=== PATIENT | female | born 1960 | race Caucasian/White ===

== ENCOUNTER 2016-10-26 23:13 | Inpatient (IN) | payer OTHER, MEDICARE ==
--- NOTE | ~2016-10-26 | IDS ---
Interim Discharge Summary [facility] [address] [place]. [address] NAME: ISAI CLAYTON : 60 STATUS : ADM IN PAT#: [id number] AGE: 56 ADM/REG DATE : 10/27/16 MR#: [id number] REPORT SERV DATE: 11/04/16 DICTATED BY: CARMELO SHERMAN DATE: 11/04/16 REPORT STATUS : Draft TRANSCRIBED BY: MODL DATE: 11/04/16 ADMISSION DATE: 10/27/2016 DISCHARGE DATE: WORKING DIAGNOSES: 1. Acute multiple sclerosis exacerbation, just finished high-dose IV steroid therapy and currently on oral taper. 2. Acute encephalopathy and agitation related to above. 3. Smoking. CONSULTS: Neurology. PROCEDURES AND IMAGIN. MRI of the brain performed on 10/27/2016 showed a mass lesion that appeared to be malignant in the right frontal parietal region extending into the corpus callosum splenium and crossing the midline into the left centrum semiovale. 2. A PET scan performed on 10/30/2016 revealed no hypermetabolic activity involving the large lesion in the posterior right parietal lobe to suggest neoplasm. HOSPITAL COURSE: This is a 56-year-old lady with history of multiple sclerosis, who was admitted with acute encephalopathy and lethargy. For details, please refer to H and P by Dr. Iqbal. In summary, the patient was admitted and an MRI of the brain was performed. The MRI of the brain showed what appeared to be a malignant mass. Neurology was consulted, and after discussing with the patient's outpatient neurologist, Dr. Yarbrough, her MRI scan was compared to the outpatient MRI that she had done about a month ago. The MRI actually appeared better than the one she had as an outpatient, and thus PET scan was performed as an inpatient to see if the mass lesion truly represented a malignant process versus a multiple sclerosis. Thankfully, it did not show any malignant process and thus the patient's condition was thought to be due to acute multiple sclerosis exacerbation. The patient was started on very high-dose IV steroids, namely Solu-Medrol 1000 mg IV daily. The patient has finished a 5-day course of that and she is now currently on p.o. taper, scheduled to taper off over the next 10 days. Unfortunately, although the patient had shown some improvement, she is still far from baseline and requires a lot of assistance to even walk. The patient is being evaluated by Physical Therapy, and she will likely need a placement to SNF. Unfortunately, it is not clear if the patient will be able to return to her baseline functional status with such a big MS lesion. DISPOSITION: Pending Physical Therapy and Neurology evaluation. The patient will likely need SNF placement. DIRK/CARMINE Carmelo Sherman MD Interim Discharge Summary [address] [address] NAME: ISAI CLAYTON : 60 STATUS : ADM IN PAT#: [id number] AGE: 56 ADM/REG DATE : 10/27/16 MR#: [id number] REPORT SERV DATE: 11/04/16 DICTATED BY: CARMELO SHERMAN DATE: 11/04/16 REPORT STATUS : Draft TRANSCRIBED BY: CARMINE DATE: 11/04/16 / [id number] CC: Carmelo Sherman MD
--- NOTE | ~2016-10-26 | HP ---
History And Physical [facility] [id number] [place]. [address] NAME: ISAI CLAYTON : 60 STATUS : ADM Stefany PAT#: [id number] AGE: 56 ADM/REG DATE : 10/27/16 MR#: [id number] REPORT SERV DATE: 10/27/16 DICTATED BY: MARY ANN BARRETT DATE: 10/27/16 REPORT STATUS : Draft TRANSCRIBED BY: MODHerson DATE: 10/27/16 DATE OF ADMISSION: 10/26/2016 POINT OF ENTRY: [facility]. PRIMARY NEUROLOGIST: Ronald Yarbrough M.D., PhD. CHIEF COMPLAINT: Altered mental status, sedation, and lethargy. HISTORY OF PRESENT ILLNESS: Ms. Clayton is a 56-year-old female with a history of multiple sclerosis, currently followed by Dr. Yarbrough, as well as seizure disorder, chronic pain on chronic narcotics, hypothyroidism, and other medical comorbidities, who is brought to the emergency room today by her for a one to two week history of altered mental status sedation and lethargy. states that for the past week or two she has been "out of it" and not acting herself. When asked for examples, he says that she is having trouble with walking as she is stumbling around as if she is intoxicated. She has had some falls recently. She has been very confused, easily distracted. He recently left to go out of town on work, and when he returned, he found that the house was a mess and very disorganized, which is unusual for her. Her also states that she has been very sedated and lethargic and acting as if she had taken too many of her pain medications, which he is convinced that she did not as he counted her pain medications, and by his calculation, she has more than she should in the pill bottle not less than she should and this suggested that she has not been taking her pain medications as she normally would. He states that her behavior is very similar to a few years ago when she was diagnosed with seizure disorder. He is also very concerned that she may not been taking her other prescription medications as prescribed for the period time for which he was out of town and she was not supervised. The patient recently had a multiple sclerosis for about three weeks ago and had two separate MRIs which according to , Dr. Yarbrough states that there has been some progression of the disease. She was placed on some steroids which he felt initially helped her symptoms but then this confusion developed. Initial evaluation in the emergency department notable for some mild hypertension was well as a white count 12,600. Labs notable for some mild dehydration with a bicarb level of 19. CT scan of the brain showed some right posterior frontal lobe edema for which Radiology recommends MRI followup. Urinalysis is unremarkable. Urine drug screen shows benzodiazepines and opiates and tricyclics. The patient was subsequently admitted to the Hospitalist Service for further evaluation and management. REVIEW OF SYSTEMS: Comprehensive review of systems otherwise negative unless listed in history of present illness. PREVIOUS MEDICAL HISTORY: History And Physical [address] [place]. [address] NAME: ISAI CLAYTON : 60 STATUS : ADM Stefany PAT#: [id number] AGE: 56 ADM/REG DATE : 10/27/16 MR#: [id number] REPORT SERV DATE: 10/27/16 DICTATED BY: MARY ANN BARRETT DATE: 10/27/16 REPORT STATUS : Draft TRANSCRIBED BY: CARMINE DATE: 10/27/16 1. Multiple sclerosis. 2. History of seizure disorder. 3. History of prior cerebrovascular accident. 4. History of carotid arterial disease. 5. Chronic pain on chronic narcotics. 6. Hypothyroidism. 7. Hypertension. 8. Hyperlipidemia. 9. History of autonomic insufficiency with syncope. 10.History of orthostatic hypotension with syncope. 11.Gastroparesis. SURGICAL HISTORY: 1. Abdominal hysterectomy. 2. Thyroidectomy. 3. Right wrist surgery. ALLERGIES: ARE TO PHENERGAN AND IMITREX AND TRIPTAN. HOME MEDICATIONS: 1. Atorvastatin 40 mg daily. 2. Klonopin 2 mg b.i.d. 3. Sinequan 20 mg at bedtime. 4. Ergocalciferol 50,000 units weekly. 5. Fentanyl topical patch 25 mcg every two days. 6. Gabapentin 3 mg at bedtime. 7. Lamictal 200 mg b.i.d. 8. Levothyroxine 88 mcg daily. 9. MS Contin 30 mg q.6 hours p.r.n. 10.Omeprazole 20 mg b.i.d. 11.Tysabri 300 mg IV monthly. SOCIAL HISTORY: She smokes about a half pack per day. Denies any illicits. Denies any alcohol. FAMILY MEDICAL HISTORY: Mother with coronary artery disease. Father's history is unknown. Siblings with history of coronary artery disease as well. LABS AND IMAGIN. White count 12.6, hemoglobin 17.0, hematocrit 47.5, and platelet count is 340. 2. Sodium is 143, potassium 3.3, chloride 108, carbon oxide 19, BUN 14, creatinine 1.14, glucose is 100, calcium 9.1, protein 7.9, albumin is 4.0, bilirubin is 0.6, ALT is 17, AST 25, and alkaline phosphatase is 138. 3. Troponin 0.03. 4. Urine drug screen shows benzodiazepines, opiates, and tricyclics. 5. Urinalysis: Specific gravity is 1.025, hazy with 8 red and 6 white blood cells per high- powered field with rare bacteria and trace ketones; however, negative leukocyte History And Physical [address] [address] NAME: ISAI CLAYTON : 60 STATUS : ADM Stefany PAT#: [id number] AGE: 56 ADM/REG DATE : 10/27/16 MR#: [id number] REPORT SERV DATE: 10/27/16 DICTATED BY: MARY ANN BARRETT DATE: 10/27/16 REPORT STATUS : Draft TRANSCRIBED BY: CARMINE DATE: 10/27/16 esterase, negative nitrites. 6. CT scan of the brain shows area of edema in the right posterior frontal lobe near the falx which appears to show sparing of the cortex. This finding can be seen in vasogenic edema for underlying mass lesion or small underlying abscess collection. MRI of the brain is recommended for further evaluation. Small old lacunar infarction, left thalamus. Chronic ischemic changes bilaterally. There is significant interval progression of chronic small vessel disease compared to prior study. PHYSICAL EXAMINATION: VITAL SIGNS: Temperature is 98.2 degrees Fahrenheit, pulse is 101, respirations 24, saturating 99% on room air. Blood pressure is 156/110. GENERAL: The patient is somewhat sedated and lethargic, but easily awakens. She is a well- developed, well-nourished, elderly female. HEENT: Atraumatic and normocephalic. Dry mucous membranes. Pupils are equal, round, reactive to light and accommodation. Her pupils are somewhat pinpoint at 4-5 mm but reactive. NECK: No jugular venous distention. No carotid bruits. CARDIAC: Regular rate and rhythm. No murmurs or gallops. Normal S1, S2. LUNGS: Clear to auscultation bilaterally with some decreased breath sounds at bases. No wheezes, rhonchi, or crackles. ABDOMEN: Soft, nontender, nondistended. Good bowel sounds. No rebound, guarding, rigidity. EXTREMITIES: Warm and well perfused. No cyanosis, clubbing, or edema. SKIN: Warm and dry. PSYCH: Flattened affect. NEURO: Alert and oriented x3, is able to tell me her birthday as well as the name of the President. Cranial nerves 2 through 12 were grossly intact. Speech is normal. Gait is not assessed. ASSESSMENT: Ms. Clayton is a 56-year-old female, who was brought to the emergency department by her for a one to two week history of encephalopathy, disorientation, sedation, and lethargy of unclear etiology. PROBLEM LIST: 1. Encephalopathy. 2. Sedation and lethargy. 3. Dehydration. 4. Metabolic acidosis. 5. Multiple sclerosis. 6. Seizure disorder. 7. Abnormal CT scan of the brain. 8. Hypokalemia. 9. Asymptomatic pyuria. PLAN: 1. Encephalopathy. Etiology is likely multifactorial and differential is very broad at this time. Workup thus far has been unremarkable except for some dehydration as well as the abnormal CT scan imaging. We will check ammonia level, thyroid function History And Physical [address] [address] NAME: ISAI CLAYTON : 60 STATUS : ADM Stefany PAT#: [id number] AGE: 56 ADM/REG DATE : 10/27/16 MR#: [id number] REPORT SERV DATE: 10/27/16 DICTATED BY: MARY ANN BARRETT DATE: 10/27/16 REPORT STATUS : Draft TRANSCRIBED BY: MODL DATE: 10/27/16 studies, vitamin B12, as well as an ABG given reports of altered mental status, sedation, and lethargy. We will also follow up with an MRI of the brain. Given patient's history of seizure disorder as well as multiple sclerosis, we will consult Neurology for assistance as well as for likely EEG. We will hold the patient's gabapentin, Klonopin, and MS Contin for sedation as well. 2. Sedation and lethargy. Holding medications for sedation. Check ammonia level, thyroid function studies, as well as an ABG. 3. Metabolic acidosis. She does have some ketones in her urine, which is likely the source, but we will check a lactic acid level as well as an ABG. 4. Dehydration. Provide IV fluids. 5. Multiple sclerosis. We will try to obtain recent records including MRI imaging from Dr. Yarbrough's office. Neurology consultation. 6. Abnormal CT scan of the brain. We will order MRI as recommended by Radiology. 7. Asymptomatic pyuria. She does have 6 whites per high-powered field but denies any symptoms and is negative leukocyte esterase and negative nitrites, therefore, we will hold off on any antibiotics at this time. 8. DVT prophylaxis. Lovenox subcu. CODE STATUS: The patient wished to be full code. ALYSAB/MODL Mary Ann Barrett MD / [id number] CC: Scottie Yarbrough M.D., PhD.
--- NOTE | ~2016-10-26 | DS ---
Discharge Summary [facility] [address] [place]. [address] NAME: ISAI CLAYTON : 60 STATUS : ADM IN PAT#: [id number] AGE: 56 ADM/REG DATE : 10/27/16 MR#: [id number] REPORT SERV DATE: 11/07/16 DICTATED BY: ROSALEE ESPINOSA DATE: 11/07/16 REPORT STATUS : Draft TRANSCRIBED BY: MODL DATE: 11/07/16 ADMISSION DATE: 10/27/2016 DISCHARGE DATE: CURRENT HOSPITAL DIAGNOSES: Multiple sclerosis, acute exacerbation; encephalopathy and agitation related to above; and tobacco abuse. 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 This would suggest relapsing-remitting pattern with the hernadez and deterioration of a large amount of additional scattered white matter changes in right and left centrum semiovale, probably also related to recent exacerbation of MS compared to October 28 study. No increased mass effect or ventricular shift identified. CURRENT PHYSICAL FINDINGS AND HPI: Please see previous H and P by Dr. Iqbal on the as well as interim summary by Dr. Singh on the . I assumed the patient's care on the and will dictate from that point. The patient had been hospitalized the previous week with MS exacerbation and confusion. She had undergone multiple testings as dictated in her previous interim summary. On the , she appeared to be stable, had titrated off her high dose steroids on to a high dose of p.o. prednisone taper. Neurology elected to repeat her MRI to see if her lesional burden was changing anywhere and the results as noted above. She had also been routinely following with PT/OT and had a pending evaluation for rehab at [facility]. On the , she had no significant changes. On the after review of her MRI, discussion with her primary neurologist, and approval for rehab at [facility], it was elected to transfer her for further rehab at [facility] with a slow steroid taper and repeat MRI in two to three weeks. DISPOSITION: She is discharged to [facility]. MEDICATIONS: Lipitor 40 one per day, B12 at 1000 per day, Sinequan 20 at bedtime, vitamin D 50,000 weekly, Duragesic patch 25 mcg, change q.48; Neurontin 300 at bedtime; Lamictal 200 b.i.d.; Synthroid 88; Habitrol patch 21; Mycostatin swish and spit q.i.d.; Protonix 40; Klonopin 2 mg b.i.d.; prednisone 80, 60, 40, 20 taper. She will not receive her Tysabri infusion on the , instead she will continue steroids. FOLLOWUP: With Neurology post discharge. TLF/CARMINE Rosalee Espinosa M.D. Discharge Summary [address] [address] NAME: ISAI CLAYTON : 60 STATUS : ADM IN PAT#: [id number] AGE: 56 ADM/REG DATE : 10/27/16 MR#: [id number] REPORT SERV DATE: 11/07/16 DICTATED BY: ROSALEE ESPINOSA DATE: 11/07/16 REPORT STATUS : Draft TRANSCRIBED BY: CARMINE DATE: 11/07/16 / [id number] CC: Rosalee Espinosa M.D.
--- NOTE | ~2016-10-26 | EEG ---
Electroencephalogram [facility] [address] [place]. [address] NAME: ISAI CLAYTON : 60 STATUS : ADM Stefany PAT#: [id number] AGE: 56 ADM/REG DATE : 10/27/16 MR#: [id number] REPORT SERV DATE: 10/28/16 DICTATED BY: DATE: REPORT STATUS : Draft TRANSCRIBED BY: MODL DATE: 10/28/16 NEUROLOGY EEG REPORT CLINICAL INDICATION: Encephalopathy. DISCUSSION: This EEG was performed using 10/20 electrode placement system. During the EEG study, the patient was noted to have mildly asymmetric background activity with the patient noted to have mild right frontal slowing. This is best appreciated in the referenced ear montage, otherwise the patient was noted to have predominant occipital rhythm of roughly 8 hertz. Photic stimulation was performed. No clear photic driving response was seen. Hyperventilation was not performed secondary to the patient's underlying medical condition as well as clinical status. During the EEG study, the patient achieved drowsy state. No focal abnormalities, seizure activity, or seizure discharge was otherwise noted. INTERPRETATION: This EEG study obtained during awake and drowsy state may be considered mildly abnormal secondary to presence of mild right frontal slowing that is appreciated in ear reference montage, suggesting possible underlying right frontal area dysfunction or structural abnormalities. Clinical correlation is otherwise recommended. KEANU/CARMINE Ranjan Smith MD / [id number] CC: Abram Gardner M.D.
--- NOTE | ~2016-10-26 | CN ---
Consultation Report [facility] [address] [place]. [address] NAME: ISAI CLAYTON : 60 STATUS : ADM Stefany PAT#: [id number] AGE: 56 ADM/REG DATE : 10/27/16 MR#: [id number] REPORT SERV DATE: 10/27/16 DICTATED BY: DATE: REPORT STATUS : Draft TRANSCRIBED BY: MODL DATE: 10/27/16 NEUROLOGY CONSULTATION DATE OF CONSULTATION: 10/27/2016 REASON FOR CONSULT: Encephalopathy. HISTORY OF PRESENT ILLNESS: This is a 56-year-old female, who presented to [facility] on 10/27/2016 secondary to found the patient to be encephalopathic. was out of town for a week. The patient's reports that since her most recent MS exacerbation, which occurred three weeks ago, the patient was noted to have balance issues, ambulating with difficulty as well as some mild confusion, but not severe enough. The patient was still able to function and still able to drive. The patient, in fact drove her to airport roughly a week ago for his job out of town. When the patient's arrived back in town, the patient's found the house disorganized with the patient unable to control bowel and bladder, and was noted to have very dazed look and was noted to be confused. The patient, since the hospitalization, was noted to have a minimal improvement and was noted to have no significant focal weakness and no reports of fever. No tonic-colonic shaking episode was reported, but the patient's reports the patient's behaviors similar to previously when the patient was noted to have been having seizures. Otherwise, the patient's most recent MS attack occurred roughly three weeks ago, for which the patient apparently received IV Solu-Medrol as well as MRI of the brain for evaluation. The patient's symptoms improved, but the patient was not back to her baseline and was noted to have balance difficulties as well as some mild confusion, but not quite as severe. The patient's denies any recent illness, and patient's denies any recent changes in medication. The patient is followed by Dr. Ronald Yarbrough at [facility] every six months for her MS. No significant psychosocial stress was noted by family members. REVIEW OF SYSTEMS: Negative except for those mentioned in the HPI. PAST MEDICAL HISTORY: Significant for multiple sclerosis; as well as previous seizure disorder; history of stroke; carotid artery disease; as well as history of chronic pain, on narcotics; hypothyroidism; hypertension; hyperlipidemia; previous history of autonomic insufficiency with syncopal episodes and gastroparesis. The patient also has difficulties controlling bowel and bladder secondary to multiple sclerosis, as well as the patient was noted to have allergy to Phenergan, Imitrex and Triptan. SOCIAL HISTORY: The patient continues to smoke roughly a half pack per day. Denies illicit drug usage. Denies alcohol usage. FAMILY HISTORY: Significant for coronary artery disease. Consultation Report [facility] [id number] [facility] [place]. [address] NAME: ISAI CLAYTON : 60 STATUS : ADM Stefany PAT#: [id number] AGE: 56 ADM/REG DATE : 10/27/16 MR#: [id number] REPORT SERV DATE: 10/27/16 DICTATED BY: DATE: REPORT STATUS : Draft TRANSCRIBED BY: MODL DATE: 10/27/16 HOME MEDICATIONS: Consist of Lipitor, Klonopin, doxepin, vitamin D, Duragesic patch, Neurontin, Lamictal, levothyroxine, morphine, Prilosec, and Tysabri infusion for MS disease modifying therapy. PHYSICAL EXAMINATION: VITAL SIGNS: At the time of my evaluation since the hospital admission, the patient was noted to have vital signs with T-max of 98.3, heart rates of 69 to 101, respirations of 18 to 24, blood pressure of 127 to 156/72 to 110. GENERAL: The patient is well developed, well nourished, in no acute distress. CARDIOVASCULAR: Regular rate and rhythm. No carotid bruits were otherwise auscultated. PULMONARY: Clear to auscultation bilaterally. NEUROLOGICAL: Generally the patient is alert, has a decreased attention span and has had no evaluation. Appeared to be somewhat lethargic, also the patient noted to have inappropriate behavior at the time of my evaluation, oriented to person, place, but not to year or month, which the reports. At times, the patient does have some difficulties with date. The patient was noted to have difficulties with registration and recall. Dysarthria was noted at the time of my evaluation with the patient at times to have some difficulty comprehending complex commands. Cranial nerves II through XII are, pupil was noted to be asymmetric as well as the patient's right pupil noted to have apparent pupillary defect. Dysconjugate gaze was noted. Extraocular eye movement was otherwise noted to be full and intact blink to threat response. The patient demonstrated decreased nasolabial fold on the right, as well as the patient noted to have mild right-sided facial weakness, tongue deviated to the right, asymmetric palatal movement, apparent to have normal hearing. Reports symmetrical sensation of her face. The patient demonstrated 4+/5 right upper extremity shactor helper strength, as well as 5/5 left upper extremity strength. Demonstrated 5/5 bilateral lower extremity strength at the time of my evaluation. Normal bstiji-zp-aike examination on the right, but the patient had difficulties with bihtlx-ct-ymny examination on the left. The patient has had deep tendon reflexes with diffusely hyperreflexic upgoing toe on bilateral plantar reflexes. The patient was noted to have ataxic gait, and have difficulty getting back into her bed at the time of my evaluation and trying to climb into the couch. LABORATORY STUDY: Demonstrates sodium 143, potassium 3.3, chloride 108, bicarb of 19, BUN of 14, creatinine 1.14, glucose of 100, calcium of 9.1. White blood cell count of 12.6, hemoglobin of 17.0, hematocrit of 47.5, and platelet count of 340. Urinalysis has demonstrated negative leukocyte esterase, negative nitrite. CT scan of her brain demonstrated right frontal area hypoattenuation concerning for acute subacute stroke versus metastasis versus possible MS exacerbation. The patient does not have any recent MRIs in our PACS systems for comparison. The patient's does report a recent history of MRI study. We will attempt to obtain records from Dr. Yarbrough's office on 10/28/2016. IMPRESSION: 1. Encephalopathy. Concern for possible multiple sclerosis exacerbation versus metabolic etiology versus seizure versus new REHAB NURSE lesion or abnormalities, so we will check the laboratory study, obtain MRI of the brain with and without contrast, as well as obtain Consultation Report [address] [place]. [address] NAME: ISAI CLAYTON : 60 STATUS : ADM Stefany PAT#: [id number] AGE: 56 ADM/REG DATE : 10/27/16 MR#: [id number] REPORT SERV DATE: 10/27/16 DICTATED BY: DATE: REPORT STATUS : Draft TRANSCRIBED BY: MODL DATE: 10/27/16 an EEG study. We will also obtain records from Dr. Yarbrough's office on 10/28/2016. 2. Multiple sclerosis. The patient is currently on Tysabri. Again, we will obtain records from patient's primary neurologist, Dr. Yarbrough. 3. Seizure. We will continue Lamictal for now, and EEG on 10/28/2016. [facility]/MODL Ranjan Smith MD / [id number] CC: Abram Gardner M.D.
[~2016-10-26 23:13] MED LIST: ASAB PO; AVONEX IM; DOX10 PO; DURA25 TOP; FLORINEF0.1 MG PO; KLONO2 PO; LAMICTAL XR200 MG PO; LAMICTAL10 PO; LAMICTAL200 MG PO; LEVOTHYROXIN100 MCG PO; LEVOTHYROXIN112 MCG PO; LIPITOR80 MG PO; LORTAB10 PO; MSIMMREL PO; NORCO1 TAB PO; NORV5 PO; PRILO PO; PRIN10 PO; PRIN5 PO; TYSABRI IV; VITD PO; [UNRECOGNIZED DRUG - CODE] OR
[2016-10-27 00:13] LABS: BASOPHILS 0.4 %; BASOPHILS ABSOLUTE 0.05 10/3/uL (0.0-0.16); EOSINOPHILS 0.1 %; EOSINOPHILS ABSOLUTE 0.01 10/3/uL (0.0-0.53); IMMATURE GRANULOCYTES 0.9 %; IMMATURE GRANULOCYTES ABSOLUTE 0.11 10/3/uL (0.0-0.11); LYMPHOCYTES 17.6 %; LYMPHOCYTES ABSOLUTE 2.21 10/3/uL (0.67-4.30); MEAN CORPUSCULAR HEMOGLOB 30.4 pg (26.0-34.0); MEAN PLATELET VOLUME 8.7 fL (9.2-13.0); MONOCYTES 5.9 %; MONOCYTES ABSOLUTE 0.74 10/3/uL (0.21-1.20); NEUTROPHILS 75.1 %; NEUTROPHILS ABSOLUTE 9.43 10/3/uL (2.02-8.40)
[2016-10-27 00:18] LABS: ER CBC TAT 0 Hrs 09 Mins; HEMATOCRIT 47.5 % (36.0-48.0); MANUAL DIFF NO %; MEAN CORPUS HGB CONC 35.8 g/dL (32.0-36.0); PLATELET COUNT 340 10/3/uL (150-400); RED CELL COUNT 5.59 10/6/uL (4.0-5.6); WHITE BLOOD CELLS 12.6 10/3/uL (4.5-10.5)
[2016-10-27 01:45] LABS: ALKALINE PHOSPHATASE 138 U/L (45-117); CALCIUM, SERUM 9.1 MG/DL (8.5-10.4); CHLORIDE, SERUM 108 MMOL/L (96-112); CREATININE 1.14 MG/DL (0.55-1.02); GFR AFRICAN AMERICAN 62 ML/MIN (>=60); GFR NON AFRICAN AMERICAN 54 ML/MIN (>=60); GLOBULIN 3.9 G/DL (2.5-4.1); POTASSIUM, SERUM 3.3 MMOL/L (3.5-5.3); SALICYLATE 4.1 MG/DL (-); SGOT(AST) 25 U/L (5-40); SGPT(ALT) 17 U/L (5-65); SODIUM, SERUM 143 MMOL/L (135-148); TOTAL BILIRUBIN 0.6 MG/DL (0-1.2); TOTAL PROTEIN 7.9 G/DL (6.0-8.5); TROPONIN I 0.03 NG/ML (<0.05)
[2016-10-27 01:46] LABS: ACETAMINOPHEN LEVEL (TYLENOL) < 2.0 MCG/ML (10.0-20.0); ALCOHOL < 10 MG/DL (0); BUN (BLOOD UREA NITROGEN) 14 MG/DL (6-23); CO2 (CARBON DIOXIDE) 19 MMOL/L (24-34); GLUCOSE, SERUM 100 MG/DL (60-99)
[2016-10-27 03:37] LABS: ASCORBIC ACID (UR NOT ORDER) NEG (NEG); BILIRUBIN, URINE NEGATIVE (NEG); ER URINALYSIS TAT 0 Hrs 01 Mins; KETONE, URINE TRACE MG/DL (NEG); LEUKOCYTE ESTERASE(NOT OR NEG (NEG); NITRITE (URINE) NEG (NEG); WBC (NOT ORDERED) (RFLEX) 6 (0-5)
[2016-10-27 03:55] LABS: AMPHETAMINES (NOT ORD) NEG (NEG); BENZODIAZEPINES (NOT ORD) POS (NEG); CANNABINOIDS (THC) NEG (NEG); COCAINE (NOT ORDERED) NEG (NEG); OPIATES POS (NEG); PHENCYCLIDINE(PCP) NEG (NEG)
[2016-10-27 03:56] LABS: BARBITURATES (NOT ORDERED NEG (NEG); TRICYCLICS POS (NEG)
[2016-10-27] MEDS ORDERED: PRILO PO (04:45)
[2016-10-27] MEDS ORDERED: LEVOTHYROXIN88 MCG PO (04:45)
[2016-10-27] MEDS ORDERED: LAMICTAL200 MG PO (04:46)
[2016-10-27] MEDS ORDERED: DURA25 TOP (04:47)
[2016-10-27] MEDS ORDERED: DOX10 PO (04:48)
[2016-10-27] MEDS ORDERED: VITD PO (04:48)
[2016-10-27] MEDS ORDERED: LIPITOR40 PO (04:48)
[2016-10-27] MEDS ORDERED: MSIMMREL PO (04:49)
[2016-10-27] MEDS ORDERED: KLONO2 PO (04:50)
[2016-10-27] MEDS ORDERED: NEUR300 PO (04:51)
[2016-10-27] MEDS ORDERED: [UNRECOGNIZED DRUG - OTHER] IV (04:55)
[2016-10-27 11:04] LABS: ALLENS TEST Pos; BE (BASE EXCESS) -5.5 MEQ/L (0 +/- 2.5); CARBOXYHEMOGLOBIN 0.6 % (0-3); HEMOBLOGIN CONTENT 14.8 G/DL (12-16); INSTRUMENT SERIAL # 8083; METHEMOGLOBIN 0.7 % (0-3); O2 CONTENT 19.7 VOL% (18-24); OPERATOR ID 32214; PCO2 (CO2 TENSION) 30 MMHG (35-45); PO2 (O2 TENSION) 83 MMHG (79-93); SAMPLE Arterial; pH 7.39 (7.37-7.43)
[2016-10-27 11:25] LABS: C-REACTIVE PROTEIN 8.3 MG/L (<8.0); FOLATE 19.1 NG/ML (>5.2); FREE T4 2.15 NG/DL (0.76-1.46); ULTRASENSITIVE TSH 0.02 MCIU/ML (0.358-3.740)
[2016-10-27 13:14] LABS: PROCALCITONIN 0.15 ng/mL (<0.5)
[2016-10-28 07:11] LABS: HEMOGLOBIN 10.2 g/dL (12.0-16.0); MANUAL DIFF YES %; MEAN CORPUSCULAR VOLUME 88.2 fL (80-100); MEAN PLATELET VOLUME 8.4 fL (9.2-13.0); PLATELET COUNT 213 10/3/uL (150-400); RBC DISTRIBUTION WIDTH 14.2 % (12.0-16.0); WHITE BLOOD CELLS 6.1 10/3/uL (4.5-10.5)
[2016-10-28 07:21] LABS: BUN (BLOOD UREA NITROGEN) 9 MG/DL (6-23); CALCIUM, SERUM 8.2 MG/DL (8.5-10.4); CHLORIDE, SERUM 112 MMOL/L (96-112); CO2 (CARBON DIOXIDE) 22 MMOL/L (24-34); CREATININE 0.86 MG/DL (0.55-1.02); GFR AFRICAN AMERICAN 88 ML/MIN (>=60); GFR NON AFRICAN AMERICAN 76 ML/MIN (>=60); GLUCOSE, SERUM 89 MG/DL (60-99); POTASSIUM, SERUM 3.9 MMOL/L (3.5-5.3); SODIUM, SERUM 143 MMOL/L (135-148)
[2016-10-28 07:41] LABS: BAND NEUTROPHILS 1 %; EOSINOPHILS 2 %; EOSINOPHILS ABSOLUTE (CALC) 0.12 10/3/uL (0.0-0.53); LYMPHOCYTES 32 %; LYMPHOCYTES ABSOLUTE (CALC) 1.95 10/3/uL (0.67-4.30); MONOCYTES 7 %; MONOCYTES ABSOLUTE (CALC) 0.43 10/3/uL (0.21-1.20); PLATELET ESTIMATE ADQ (ADEQUATE); RBC MORPHOLOGY NORM (NORMAL); SEGMENTED NEUTROPHIL (0) 58 %; TOTAL NUCLEATED CELLS 100
[2016-10-29 07:35] LABS: C-REACTIVE PROTEIN 3.5 MG/L (<8.0)
[2016-10-31 09:31] LABS: BASOPHILS 0.2 %; BASOPHILS ABSOLUTE 0.02 10/3/uL (0.0-0.16); EOSINOPHILS 0.1 %; EOSINOPHILS ABSOLUTE 0.01 10/3/uL (0.0-0.53); HEMATOCRIT 32.4 % (36.0-48.0); HEMOGLOBIN 10.8 g/dL (12.0-16.0); IMMATURE GRANULOCYTES 1.2 %; LYMPHOCYTES 17.9 %; LYMPHOCYTES ABSOLUTE 1.53 10/3/uL (0.67-4.30); MEAN CORPUS HGB CONC 33.3 g/dL (32.0-36.0); MEAN CORPUSCULAR HEMOGLOB 28.6 pg (26.0-34.0); MEAN CORPUSCULAR VOLUME 85.7 fL (80-100); MEAN PLATELET VOLUME 9.4 fL (9.2-13.0); MONOCYTES 6.3 %; MONOCYTES ABSOLUTE 0.54 10/3/uL (0.21-1.20); NEUTROPHILS 74.3 %; NEUTROPHILS ABSOLUTE 6.35 10/3/uL (2.02-8.40); NUCLEATED RED BLOOD CELLS 1.4 /100WBC (0-0); PLATELET COUNT 232 10/3/uL (150-400); RBC DISTRIBUTION WIDTH 13.8 % (12.0-16.0); RED CELL COUNT 3.78 10/6/uL (4.0-5.6)
[2016-10-31 09:32] LABS: MANUAL DIFF NO %; WHITE BLOOD CELLS 8.6 10/3/uL (4.5-10.5)
[2016-10-31 09:41] LABS: CALCIUM, SERUM 8.5 MG/DL (8.5-10.4); CHLORIDE, SERUM 109 MMOL/L (96-112); CO2 (CARBON DIOXIDE) 26 MMOL/L (24-34); CREATININE 0.96 MG/DL (0.55-1.02); GFR AFRICAN AMERICAN 77 ML/MIN (>=60); GFR NON AFRICAN AMERICAN 66 ML/MIN (>=60); SODIUM, SERUM 143 MMOL/L (135-148)
[2016-10-31 09:44] LABS: BUN (BLOOD UREA NITROGEN) 13 MG/DL (6-23); GLUCOSE, SERUM 129 MG/DL (60-99); POTASSIUM, SERUM 3.9 MMOL/L (3.5-5.3)
[2016-11-01 05:49] LABS: HEMATOCRIT 30.8 % (36.0-48.0); HEMOGLOBIN 10.2 g/dL (12.0-16.0); MEAN CORPUS HGB CONC 33.1 g/dL (32.0-36.0); MEAN CORPUSCULAR HEMOGLOB 28.8 pg (26.0-34.0); MEAN PLATELET VOLUME 9.4 fL (9.2-13.0); NUCLEATED RED BLOOD CELLS 1.8 /100WBC (0-0); PLATELET COUNT 205 10/3/uL (150-400); RBC DISTRIBUTION WIDTH 13.7 % (12.0-16.0); RED CELL COUNT 3.54 10/6/uL (4.0-5.6); WHITE BLOOD CELLS 7.9 10/3/uL (4.5-10.5)
[2016-11-01 05:53] LABS: MANUAL DIFF YES %
[2016-11-01 06:02] LABS: BUN (BLOOD UREA NITROGEN) 15 MG/DL (6-23); CALCIUM, SERUM 8.1 MG/DL (8.5-10.4); CHLORIDE, SERUM 105 MMOL/L (96-112); CO2 (CARBON DIOXIDE) 25 MMOL/L (24-34); CREATININE 0.81 MG/DL (0.55-1.02); GFR AFRICAN AMERICAN 94 ML/MIN (>=60); GFR NON AFRICAN AMERICAN 81 ML/MIN (>=60); GLUCOSE, SERUM 125 MG/DL (60-99); SODIUM, SERUM 142 MMOL/L (135-148)
[2016-11-01 06:46] LABS: BAND NEUTROPHILS 2 %; LYMPHOCYTES 14 %; LYMPHOCYTES ABSOLUTE (CALC) 1.11 10/3/uL (0.67-4.30); MONOCYTES 4 %; MONOCYTES ABSOLUTE (CALC) 0.32 10/3/uL (0.21-1.20); NEUTROPHILS ABSOLUTE (CALC) 6.48 10/3/uL (2.02-8.40); PLATELET ESTIMATE ADQ (ADEQUATE); RBC MORPHOLOGY NORM (NORMAL); SEGMENTED NEUTROPHIL (0) 80 %; TOTAL NUCLEATED CELLS 100
[2016-11-01 09:01] LABS: THYROID STIM IMMUNOGLOBULIN <0.10 IU/L (<0.10)
[2016-11-01 11:48] LABS: THYROGLOBULIN AUTO ANTIBODY <0.9 IU/mL (0.0-4.0)
[2016-11-05 07:08] LABS: HEMOGLOBIN 12.1 g/dL (12.0-16.0); MEAN CORPUSCULAR HEMOGLOB 29.8 pg (26.0-34.0); MEAN PLATELET VOLUME 9.2 fL (9.2-13.0); NUCLEATED RED BLOOD CELLS 2.2 /100WBC (0-0); PLATELET COUNT 213 10/3/uL (150-400); RED CELL COUNT 4.06 10/6/uL (4.0-5.6)
[2016-11-05 07:10] LABS: HEMATOCRIT 34.5 % (36.0-48.0); MANUAL DIFF YES %; MEAN CORPUS HGB CONC 35.1 g/dL (32.0-36.0); WHITE BLOOD CELLS 14.7 10/3/uL (4.5-10.5)
[2016-11-05 07:12] LABS: CALCIUM, SERUM 8.5 MG/DL (8.5-10.4); CHLORIDE, SERUM 99 MMOL/L (96-112); CREATININE 1.11 MG/DL (0.55-1.02); GFR AFRICAN AMERICAN 64 ML/MIN (>=60); GFR NON AFRICAN AMERICAN 55 ML/MIN (>=60); POTASSIUM, SERUM 3.6 MMOL/L (3.5-5.3); SODIUM, SERUM 140 MMOL/L (135-148)
[2016-11-05 07:13] LABS: BUN (BLOOD UREA NITROGEN) 20 MG/DL (6-23); CO2 (CARBON DIOXIDE) 32 MMOL/L (24-34); GLUCOSE, SERUM 196 MG/DL (60-99)
[2016-11-05 07:40] LABS: BAND NEUTROPHILS 8 %; IMMATURE GRANS ABSOLUTE (CALC) 0.59 10/3/uL (0.0-0.11); LYMPHOCYTES 21 %; LYMPHOCYTES ABSOLUTE (CALC) 3.09 10/3/uL (0.67-4.30); METAMYELOCYTES 4 %; MONOCYTES 7 %; MONOCYTES ABSOLUTE (CALC) 1.03 10/3/uL (0.21-1.20); PLATELET ESTIMATE ADQ (ADEQUATE); SEGMENTED NEUTROPHIL (0) 60 %; TOTAL NUCLEATED CELLS 100
[2016-11-05 07:41] LABS: RBC MORPHOLOGY NORM (NORMAL)
[2016-11-11] MEDS ORDERED: LIPITOR40 PO (18:30)
[2016-11-11] MEDS ORDERED: KLONO2 PO (18:31)
[2016-11-11] MEDS ORDERED: B121000P IM (18:32)
[2016-11-11] MEDS ORDERED: D.O.S.100 MG PO (18:32)
[2016-11-11] MEDS ORDERED: DOX10 PO (18:33)
[2016-11-11] MEDS ORDERED: LOVENOX40 SC (18:33)
[2016-11-11] MEDS ORDERED: LAMICTAL200 MG PO (18:34)
[2016-11-11] MEDS ORDERED: LEVOTHYROXIN88 MCG PO (18:34)
[2016-11-11] MEDS ORDERED: DURA25 TOP (18:34)
[2016-11-11] MEDS ORDERED: NEUR300 PO (18:34)
[2016-11-11] MEDS ORDERED: HABIT21 TOP (18:35)
[2016-11-11] MEDS ORDERED: MIRALAX POWDER1 PKT PO (18:36)
[2016-11-11] MEDS ORDERED: PROTONIX PO (18:36)
[2016-11-11] MEDS ORDERED: NYS500UDL PO (18:36)
[2016-11-11] MEDS ORDERED: VITD PO (18:37)
[2016-11-11] MEDS ORDERED: P20 PO (18:37)
[2016-11-11] MEDS ORDERED: NOVOLOG SC (18:38)
== END 2016-11-07 14:39 | DRG 58 ==
LOC: ER 23:13 → 4SO 10-27 05:20
PROVIDERS: Internal Medicine; Nurse Practitioner; Psychiatry & Neurology Neurology
DX: G35 Multiple sclerosis (principal); G93.49 Other encephalopathy; K31.84 Gastroparesis; E87.2 Acidosis; R15.9 Full incontinence of feces; G40.909 Epilepsy, unspecified, not intractable, without status epilepticus; G89.29 Other chronic pain; Z79.891 Long term (current) use of opiate analgesic; E86.0 Dehydration; I10 Essential (primary) hypertension; Z86.73 Personal history of transient ischemic attack (TIA), and cerebral infarction without residual deficits; E78.5 Hyperlipidemia, unspecified; E89.0 Postprocedural hypothyroidism; Z88.8 Allergy status to other drugs, medicaments and biological substances; F17.210 Nicotine dependence, cigarettes, uncomplicated; E87.6 Hypokalemia; R82.71 Bacteriuria; Z79.899 Other long term (current) drug therapy; I95.1 Orthostatic hypotension; D64.9 Anemia, unspecified; R26.0 Ataxic gait; R32 Unspecified urinary incontinence; F41.9 Anxiety disorder, unspecified
CPT/HCPCS: 36600; 70450; 70553; 71010; 78608; 80048; 80053; 80305; 80307; 81001; 82140; 82150; 82306; 82607; 82746; 82805; 82962; 83605; 83690; 84132; 84145; 84439; 84443; 84445; 84484; 85025; 85652; 86140; 86800; 93005; 95816; 96374; 97110-GP; 97116-GP; 97162-GP; 97166-GO; 99285; A9270-GY; A9552; A9577; G8978-CK-GP; G8979-CI-GP; J0360; J2930; J3486

== ENCOUNTER 2016-11-11 18:38 | Inpatient (IN) | payer OTHER, MEDICARE ==
--- NOTE | ~2016-11-11 | EEG ---
Electroencephalogram [facility] [id number] [place]. [address] NAME: ISAI CLAYTON : 60 STATUS : ADM IN PAT#: [id number] AGE: 56 ADM/REG DATE : 11/11/16 MR#: [id number] REPORT SERV DATE: 11/29/16 DICTATED BY: NELDA ASHER DATE: 11/29/16 REPORT STATUS : Draft TRANSCRIBED BY: MODHerson DATE: 11/29/16 ORDERING PHYSICIAN: Nelda Asher MD. INTERPRETING PHYSICIAN: Nelda Asher M.D. LOCATION OF THE PATIENT: CCU bed 8. REASON FOR EEG: Acute onset of respiratory failure, progressive multifocal leukoencephalopathy, poor responsiveness, multiple sclerosis, and history of seizures. 23 surface electrodes, 10-20 international placement was used. Video recording was utilized. Brief photic stimulation was performed. The patient was noted to be unresponsive. The background activity consisted of poorly organized, moderate voltage 6-7 cycles per second located in the posterior head regions. Increase of slower frequencies were seen in temporal regions. No paroxysmal or epileptiform activity was seen during this study. The patient's labor trainer showed sinus rhythm, rate of approximately 72 beats per minute. The EEG remained diffusely slow. The patient had no response to painful or verbal stimuli although she intermittently moved the right arm and right leg. Increase of muscle activity was noted during the above described activity. No paroxysmal or epileptiform features were present. IMPRESSION: ABNORMAL EEG CHARACTERIZED BY PRESENCE OF DIFFUSE SLOWING OF CEREBRAL ACTIVITY. NO PAROXYSMAL OR EPILEPTIFORM ACTIVITY WAS SEEN DURING THIS STUDY. THE ABOVE DESCRIBED PATTERN OF THE PATIENT MAY SUGGEST PRESENCE OF UNDERLYING DIFFUSE CEREBRAL DYSFUNCTION. CLINICAL CORRELATION IS RECOMMENDED. MIRIAN/CARMINE Nelda Asher MD / [id number] CC: Isabell Goldman M.D.
--- NOTE | ~2016-11-11 | OP ---
Record Of Operation [facility] [address] [place] [address] NAME: ISAI CLAYTON : 60 STATUS : ADM IN [facility]#: [id number] AGE: 56 ADM/REG DATE : 11/11/16 MR#: [id number] REPORT SERV DATE: 11/28/16 DICTATED BY: ELAINE PEDROZA DATE: 11/28/16 REPORT STATUS : Draft TRANSCRIBED BY: MODL DATE: 11/28/16 DATE OF PROCEDURE: 11/14/2016 PROCEDURE: Endotracheal intubation. DIAGNOSIS: Respiratory failure. DESCRIPTION: The patient was in CCU bed #8, brought down after Rapid Response Team. She was on a 100% non-rebreather showing poor ventilatory effort and a very abnormal blood gas. The patient was sedated with 20 mg of IV etomidate. Using a MAC 3 blade, I placed a 7.5 ET tube without difficulty. Showed good color change with CO2 detector. Also bilateral breath sounds and secretions coming up through the ET tube. Chest x-ray postprocedure showed ET tube to be going down into the right mainstem bronchus, so the ET tube was pulled back and showed proper positioning after that. CEP/MODHerson Elaine Pedroza DO / [id number] CC: Isabell Goldman M.D.
--- NOTE | ~2016-11-11 | EEG ---
Electroencephalogram [facility] [address] [facility]. [address] NAME: ISAI CLAYTON : 60 STATUS : ADM IN PAT#: [id number] AGE: 56 ADM/REG DATE : 11/11/16 MR#: [id number] REPORT SERV DATE: 11/22/16 DICTATED BY: DATE: REPORT STATUS : Draft TRANSCRIBED BY: MODL DATE: 11/22/16 CLINICAL INDICATIONS: Encephalopathy, progressive multifocal leukoencephalopathy. DISCUSSION: This EEG was performed using 10/20 electrode placement system. During the EEG study, symmetric background activity with generalized slowing was seen predominant occipital rhythm of roughly 6 hertz. Photic stimulation was performed with some driving response. Hyperventilation was not performed due to the patient's medical conditions. During the EEG study, the patient's EKG demonstrated possible PVCs versus ST depressions. Otherwise, the patient achieved drowsy as well as stage I and II sleep with appropriate sleep spindles and K-complexes. No focal abnormalities, seizure activity, or seizure discharge was otherwise noted during the EEG evaluation. INTERPRETATION: This EEG study obtained during awake and drowsy state as well as stage I and II sleep may be considered mildly abnormal secondary to presence of generalized slowing. No focal abnormalities, seizure activity, or seizure discharge was otherwise noted. No clinical seizure or electrographic seizure was seen during today's EEG evaluation. [facility]/MODL Ranjan Smith MD / [id number] CC: Deejay Wynn MD
--- NOTE | ~2016-11-11 | IDS ---
Interim Discharge Summary [facility] [address] [place]. [address] NAME: ISAI CLAYTON : 60 STATUS : ADM IN PAT#: [id number] AGE: 56 ADM/REG DATE : 11/11/16 MR#: [id number] REPORT SERV DATE: 12/11/16 DICTATED BY: DOMITILA BANG DATE: 12/11/16 REPORT STATUS : Draft TRANSCRIBED BY: MODL DATE: 12/11/16 ADMISSION DATE: 11/11/2016 DISCHARGE DATE: This dictation will cover events from the time Critical Care Service got involved which was 11/28 through 12/11. For details before that please see interim discharge summaries by Dr. Goldman on 11/18 and history and physical by Dr. Vinicius Eli on 11/12. On 11/28, rapid response was called at 2:35 a.m. and the patient was found with decreased level of consciousness and was found to have hypercapnic respiratory failure with a pCO2 of 105, and the patient was then subsequently transferred to the CCU and was intubated there. 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 It is known that the patients taken Tysabri and are positive for ALYSA virus may very well did develop progressive multifocal leukoencephalopathy. The patient has been followed by Neurology throughout this hospitalization and attempts have been made to treat the PML including plasmapheresis. Patient required Vas-Cath placement for that and then suffered bilateral pneumothoraces for this attempt, and only received one round of plasmapheresis. Because of the patient's difficulties with gastroparesis, she required chest tube placement. The pneumothoraces resolved and this was before she was moved to the CCU. PEG tube was placed by Dr. Hurst on 11/18. After much discussion with Neurology and the , it was considered that the patient had a poor prognosis, and according to the , she would not want to be kept on prolonged mechanical ventilation. She was extubated and actually sent to the floor with hospice on the . The patient almost was transferred out of the hospital with hospice when Dr. Yarbrough after having a discussion with colleague in [place] for further recommendations and it was recommended that the patient be continued on Maraviroc, Remeron, mefloquine, and Neupogen. Apparently, it was thought that the patient had some reasonable chance of recovery from the PML and so she was reintubated on 12/02 and then transferred to the MICU where she is now. She has been very closely followed by Neurology and currently continues on the above medications. She remains intubated and is undergoing daily spontaneous breathing trials. Clinically, it is thought that there may be some improvement with her mental status. She is currently not sedated. To my command, she has not been responsive, but apparently Neurology feels that there is some improvement. She is not weaning from the vent. her stool was positive for C diff on 11/22. She continues on Vancocin as per Infectious Diseases. She developed a fever on 12/09 and was diaz cultured and it turns out to have methicillin- sensitive Staph aureus in her sputum for which she is being treated with Ancef, initially was on Zosyn, but this has been changed after cultures were obtained. She has gram-negative rods in her urine and currently is on Azactam as per Infectious Diseases and this is an Enterobacter that is growing in her urine. So she is being treated for this. Her leukocytosis has been variable and currently is 29,000, but has been as high as 41,000. Interim Discharge Summary [address] [place]. [address] NAME: ISAI CLAYTON : 60 STATUS : ADM IN [facility]#: [id number] AGE: 56 ADM/REG DATE : 11/11/16 MR#: [id number] REPORT SERV DATE: 12/11/16 DICTATED BY: DOMITILA BANG DATE: 12/11/16 REPORT STATUS : Draft TRANSCRIBED BY: MODL DATE: 12/11/16 She has anemia more than likely multifactorial. We will plan to heme test stool, follow hemoglobin and hematocrit, and transfuse as needed. Thrombocytopenia is variable and we are very carefully following this. She has not required any blood transfusion. The patient had an MRA/MRI of the brain today, on 12/11, results of which are pending. So as far as her code status is concerned, she is currently a full code. The question remains as to whether or not she will be able to be weaned from the vent, and if not, whether a tracheostomy would be desired by the family. She has been fitted for Podus boots since it appears that she has developed footdrop. She continues on her tube feedings and Synthroid. DVT prophylaxis has been with heparin. Seizure disorder. Currently on lamotrigine. There has been no noted seizure activity. /MODL Domitila Bang M.D. / [id number] CC: Isabell Goldman M.D.
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
--- NOTE | ~2016-11-11 | HP ---
History And Physical [facility] [address] [place]. [address] NAME: ISAI CLAYTON : 60 STATUS : DIS IN PAT#: [id number] AGE: 56 ADM/REG DATE : 11/11/16 MR#: [id number] REPORT SERV DATE: 12/31/16 DICTATED BY: NICK COLEMAN DATE: 12/31/16 REPORT STATUS : Draft TRANSCRIBED BY: MODHerson DATE: 12/31/16 DATE OF ADMISSION: 11/11/2016 HISTORY OF PRESENT ILLNESS: The patient is a 56-year-old female who came in to [facility] on 10/26/2016 with some complications from MS. She was sent to [facility]. She was there for two days and bounced back on 11/11/2016 with weakness, confusion, encephalopathy, and progressive multifocal leukoencephalopathy with brain lesions and seizures. She had a Vas- Cath placed and apparently got a pneumothorax from that which extended to two pneumothoraxes bilaterally. She had chest tubes and was placed on a ventilator about 11/28/2016. Subsequently, trached and PEGed. She was taken off the ventilator yesterday as the family decided to go more with comfort care. Hospice has been called in. PAST MEDICAL HISTORY: Pertinent for migraines, light stroke, UTI, esophageal stricture, seizures, hypertension, hypothyroidism, depression, and anxiety. PAST SURGICAL HISTORY: She is status post hysterectomy, right wrist repair, and thyroidectomy. ALLERGIES: SHE IS ALLERGIC TO TRIPTANS AND PHENERGAN. SOCIAL HISTORY: She was a smoker and no alcohol. , 33-1/2 years according to her , who is present, two children. 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 FAMILY HISTORY: Pertinent for diabetes, stroke, and heart disease. REVIEW OF SYSTEMS: The patient was notably dyspneic when we brought her into hospice. She otherwise largely unresponsive. PHYSICAL EXAMINATION: VITAL SIGNS: 28, 112/67, 90, and 91% on room air. GENERAL: Thin, obtunded white female, largely unresponsive. HEENT: Pupils are equal. NECK: She does have a right carotid bruit. No thyroid masses. Tracheostomy is in place. LUNGS: Very distant breath sounds. It is almost impossible to hear her breathe, but I hear no rales or rhonchi. HEART: Regular, sinus rhythm with no murmurs or gallops. ABDOMEN: Has a PEG tube in it. NEUROLOGIC: She is essentially immobile. ASSESSMENT AND PLAN: 56-year-old with multiple sclerosis for 15 years, developed PML, and has had seizures; now the goal is comfort only. Family is very interested in making sure that she is comfortable. She is being admitted to [facility] for her dyspnea and respiratory distress. History And Physical [address] [address] NAME: ISAI CLAYTON : 60 STATUS : DIS IN PAT#: [id number] AGE: 56 ADM/REG DATE : 11/11/16 MR#: [id number] REPORT SERV DATE: 12/31/16 DICTATED BY: NICK COLEMAN DATE: 12/31/16 REPORT STATUS : Draft TRANSCRIBED BY: CARMINE DATE: 12/31/16 GP/CARMINE Nick Coleman MD / [id number] CC: George Medrano IV, M.D. NO PCP
--- NOTE | ~2016-11-11 | IDS ---
Interim Discharge Summary [facility] [address] [place]. [address] NAME: ISAI CLAYTON : 60 STATUS : ADM IN PAT#: [id number] AGE: 56 ADM/REG DATE : 11/11/16 MR#: [id number] REPORT SERV DATE: 12/20/16 DICTATED BY: BRITTNEY AZUL DATE: 12/20/16 REPORT STATUS : Draft TRANSCRIBED BY: MODL DATE: 12/20/16 ADMISSION DATE: 11/11/2016 DISCHARGE DATE: LAST INTERIM DISCHARGE SUMMARY DATE: 12/11/2016. INTERIM DIAGNOSES: 1. Acute respiratory failure. 2. Multiple sclerosis. 3. Multifocal leukoencephalopathy. 4. Clostridium difficile colitis. 5. History of Methicillin-sensitive Staphylococcus aureus tracheobronchitis. 6. Hypothyroidism. ICU COURSE: Please see the dictated H and P as well as multiple consult notes and interim discharge summaries with the last being by Dr. Bang on 12/11/2016 for full patient presentation history and hospital course up to this point. I began taking care of the patient on 12/16/2016, and this dictation covers her ICU course since then. When I took over, the patient remained on the ventilator and was unable to wean secondary to her poor mental status. Due to this, she underwent a tracheostomy on 12/17/[address] Tellez. She continues to fail daily CPAP trials due to her poor mentation. She has at times done well on CPAP, but was unable to be liberated from the ventilator as of today. We will continue daily CPAP trials as tolerated. Regarding her progressive multifocal leukoencephalopathy, neurology continues to manage this for us. She has remained on their regimen all week while we waited on immune reconstitution syndrome. She had an MRI today that showed some mild increased enhancement, so Neurology is discussing the possibility of starting steroids today for IRIS. Her mental status really has not shown much improvement this week, she does open her eyes and grimace to pain, but does not do much beyond that. ID continues to follow along and has been treating her C. difficile colitis. She is off antibiotics for her MSSA tracheobronchitis, otherwise there have been no big changes in her this week. Further prognosis and planning will depend on her response to steroids and her improvement in mental status. She remained in the ICU at this time. The oncoming campus president will assume her care tomorrow. Please call if you have any questions. BRIDGETT/CARMINE Brittney Azul MD / [id number] CC: Isabell Goldman M.D.
--- NOTE | ~2016-11-11 | CN ---
Consultation Report [facility] [address] [place]. [address] NAME: ISAI CLAYTON : 60 STATUS : ADM IN PAT#: [id number] AGE: 56 ADM/REG DATE : 11/11/16 MR#: [id number] REPORT SERV DATE: 11/28/16 DICTATED BY: ELAINE PEDROZA DATE: 11/28/16 REPORT STATUS : Draft TRANSCRIBED BY: MODL DATE: 11/28/16 DATE OF CONSULTATION: HISTORY OF PRESENT ILLNESS: This is a 56-year-old white female, who was admitted 11/11/2016 for exacerbation of multiple sclerosis. She was recently in the hospital and sent out to [facility], came back for increasing weakness, confusion, and debilitation. She has a very complicated course related to her multiple sclerosis with Dr. Marianna Argueta as well as Dr. Yanez with Neurology, who had been seeing this patient in the hospital. She has already failed IV steroids. She had a Vas-Cath placed by Dr. Monroy with an attempt on the left side that was unsuccessful, but successful on the right. This was done so she could have plasmapheresis, which was performed on 11/21/2016. That procedure was complicated by left apical pneumothorax on 11/20/2016, which Dr. Webster was consulted and placed a chest tube. The patient's multiple sclerosis has been treated with natalizumab in the past. 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 The patient also had a spinal tap that was positive for ALYSA virus. Infectious Disease has been consulted and is following. The patient is on some unusual agents, which include maraviroc, mefloquine, and G-CSF. She is currently on oral vancomycin for being C diff positive. During this admission, she has also had a feeding tube placed and currently getting nutrition through this route. She did have problems with recurrence of what appeared to be bilateral pneumothoraces and had to have bilateral chest tubes placed by Interventional Radiology on 11/25/2016. Those chest tubes currently on water seal. A rapid response team was called on 11/28/2016 at 2:35 a.m. because of respiratory distress and decreased responsiveness. The patient had ABG that was done that showed a pH of 7.11, pCO2 of 105, PO2 of 112, bicarb 33, O2 saturation 96% on 100% FiO2 with a nonrebreather. The patient was rolled down to the CCU during my initial evaluation with the patient. Immediately, we proceeded with intubation. This was dictated under a separate report. After intubation, I did ultrasound the patient's bilateral chest regions on four separate points - bilateral anterior chest ultrasound points and left and right axillary lines, which showed good lung sliding and a positive beach sign, which is reassuring for no residual pneumothoraces. This was later confirmed on chest x-ray with intubation. REVIEW OF SYSTEMS: Unable to be obtained. PAST MEDICAL HISTORY: Multiple sclerosis, seizure disorder, stroke, ALYSA virus, anxiety and depression, hypothyroidism, hypertension, peripheral vascular disease, gastroparesis, and esophageal stricture. PAST SURGICAL HISTORY: Right wrist surgery, thyroid surgery. SOCIAL HISTORY: Smoker. The patient is disabled. FAMILY HISTORY: Heart disease. Consultation Report [address] [place]. [address] NAME: ISAI CLAYTON : 60 STATUS : ADM IN [facility]#: [id number] AGE: 56 ADM/REG DATE : 11/11/16 MR#: [id number] REPORT SERV DATE: 11/28/16 DICTATED BY: ELAINE PEDROZA DATE: 11/28/16 REPORT STATUS : Draft TRANSCRIBED BY: CARMINE DATE: 11/28/16 ALLERGIES: SUMATRIPTAN. HOSPITAL MEDICATIONS: Reviewed. PHYSICAL EXAMINATION: VITAL SIGNS: Reviewed. GENERAL: The patient is obviously debilitated, cachectic, and unresponsive. NEURO: Not responding. HEENT: Normocephalic, atraumatic. NECK: Trachea midline. HEART: Tachycardic, regular. LUNGS: Bilateral breath sounds. Bilateral chest tubes are present that are on water seal and no evidence of any residual air leak. GI: Feeding tube in place. ABDOMEN: Soft, nontender. EXTREMITIES: No edema. MUSCULOSKELETAL: Appears to be muscle wasting diffusely. LABORATORY DATA: Reviewed as well as radiology studies reviewed. ASSESSMENT AND PLAN: 1. Acute hypercapnic and hypoxic respiratory failure. 2. Cephalopathy. 3. Multiple sclerosis exacerbation. 4. ALYSA virus. 5. Chest tubes for recurrent bilateral pneumothoraces. 6. Clostridium difficile positive. 7. Malnutrition and dysphagia. 8. History of tobacco abuse. 9. Progressive multifocal leukoencephalopathy. Neuro: Neurology is following this patient along with Infectious Disease and we will defer treatment for this patient's seizure disorder, progressive multifocal leukoencephalopathy, and multiple sclerosis management to them. The patient will be sedated with propofol while she is on the ventilator. Cardiac: EKG was performed showing a sinus tachycardia. The patient is normotensive, but we will continue to monitor. She did have an echocardiogram on this admission on 11/20/2016 showing some very mild diastolic dysfunction, otherwise pretty unremarkable. Lungs: The patient is on the ventilator, intubated with a 7.5 ET tube. We will recheck arterial blood gas. Ventilator settings were managed by myself. Bilateral chest tubes are in place on water seal. We will monitor this. Follow up with repeat chest x-ray. At the current time, there is no evidence for recurrence of these pneumothoraces. Consultation Report [address] [place]. [address] NAME: ISAI CLAYTON : 60 STATUS : ADM IN [facility]#: [id number] AGE: 56 ADM/REG DATE : 11/11/16 MR#: [id number] REPORT SERV DATE: 11/28/16 DICTATED BY: ELAINE PEDROZA DATE: 11/28/16 REPORT STATUS : Draft TRANSCRIBED BY: MODL DATE: 11/28/16 GI: Consult Nutrition for help with nutrition support. The patient is C diff positive and is on oral vancomycin. : The patient did have just a diaper on, but we placed a [place] catheter and we will follow in's and out's on this patient as well as renal function. The patient is status post plasmapheresis on 11/21/2016 x1. Order PICC line for the morning. She only has one peripheral IV. Also, order routine laboratory work to be done now. Seventy six minutes of critical care time. CEP/MODL Elaine Pedroza DO / [id number] CC: Isabell Goldman M.D.
--- NOTE | ~2016-11-11 | DS ---
Discharge Summary [facility] [address] [place]. [address] NAME: ISAI CLAYTON : 60 STATUS : DIS IN PAT#: [id number] AGE: 56 ADM/REG DATE : 11/11/16 MR#: [id number] REPORT SERV DATE: 01/29/17 DICTATED BY: ELAINE PEDROZA DATE: 01/29/17 REPORT STATUS : Draft TRANSCRIBED BY: MODL DATE: 01/29/17 ADMISSION DATE: 11/11/2016 DISCHARGE DATE: 12/31/2016 FINAL DIAGNOSES: 1. Acute hypoxic respiratory failure. 2. Multifocal leukoencephalopathy with ALYSA virus infection. 3. Advanced multiple sclerosis. 4. Clostridium difficile colitis. 5. Hypothyroidism. 6. Seizure disorder. 7. Protein calorie malnutrition. 8. Hypotension. 9. Hyperglycemia. 10.History of methicillin-sensitive Staphylococcus aureus tracheobronchitis. 11.Anemia - multifactorial. 12.Bilateral pneumothoraces. HOSPITAL DESCRIPTION: The patient was admitted for a very prolonged period of time, from 11/11/2016 through 12/31/2016. I came back on service for 1 day, 12/30/2016, when the decided to convert care over to palliative care and hospice. My partner, Dr. Claire, due to 's request, decided that he wanted him to carry out the palliative care hospice orders. The patient was transferred to the floor with [facility]. There are numerous interim discharge summaries throughout her hospital stay that are six in total plus her initial history and physical. I would suggest going through those dictations to find out the summary of this hospitalization since it was very prolonged and detailed. DICTATED BY: Elaine Pedroza DO CEP/MODL Elaine Pedroza DO / [id number] CC: George Medrano IV, M.D.
--- NOTE | ~2016-11-11 | IDS ---
Interim Discharge Summary [facility] [address] [place]. [address] NAME: ISAI CLAYTON : 60 STATUS : ADM IN PAT#: [id number] AGE: 56 ADM/REG DATE : 11/11/16 MR#: [id number] REPORT SERV DATE: 11/24/16 DICTATED BY: DATE: REPORT STATUS : Draft TRANSCRIBED BY: MODL DATE: 11/24/16 ADMISSION DATE: 11/11/2016 DISCHARGE DATE: 11/24/2016 DIAGNOSES: Current interim discharge diagnosis list includes: 1. Exacerbation of multiple sclerosis. 2. Seizure disorder. 3. Hypertension. 4. Dysphagia. 5. Gastroparesis. 6. C. diff. 7. Tobacco abuse. 8. Severe malnutrition. 9. Oropharyngeal secretions. 10.Thyroidectomy. 11.History of cerebrovascular accident. 12.History of chronic pain. 13.Right apex pneumothorax. 14.Positive ALYSA virus. CONSULTATIONS: During her stay: Neuro, Dr. Yanez and Dr. Smith. ID, Dr. Anne. GI, Dr. Hurst. Pulmonary, Dr. Webster. Vascular, Dr. Monroy. HISTORY OF PRESENT ILLNESS: This is a pleasant 56-year-old female, presenting with increasing weakness, debilitation and confusion. Please see H and P by Dr. Vinicius Eli on 11/12/2016. For patient's continued inpatient status, please see interim discharge summary dictated by Dr. Goldman on 11/18/2016. I assumed the patient's care on 11/19/2016. The patient's exacerbation of MS has been addressed per Dr. Smith who has talked with experts up at [facility] as well as Dr. Yarbrough to coordinate care. The patient had a Vas-Cath placed by Dr. Monroy which during this time, the patient had a left apex pneumothorax on 11/20, for which Dr. Webster was consulted to place a chest tube. This was resolved and chest tube was removed on 11/23. Plasmapheresis was attempted x1 and the patient had an abrupt decline in her health status and Vas-Cath was removed on 11/23. Only one plasmapheresis was done. The patient has had multiple medication changes per Dr. Smith and testing per Dr. Anne. The patient developed diarrhea on 11/21/2016, and this was thought to be due to tube feeds, but additional testing done for C. diff showed the patient had developed C. diff from her frequent antibiotics. The patient at one time, did have to receive a normal saline bolus for blood pressure of 87/51. The patient also has had other episodes of hypotension due to the Apresoline and the clonidine being given at the same time. The patient's repeat MRIs of the brain without contrast have showed tumor progression. The patient developed oropharyngeal secretions on 11/22, for which the patient has received transderm scopolamine patch which has worked well, and can have p.r.n. Robinul for the same secretions. The patient's NG tube was discontinued on 11/22. The patient continues to exhibit wet cough, and a left chest x-ray showed that she Interim Discharge Summary [address] [address] NAME: ISAI CLAYTON : 60 STATUS : ADM IN PAT#: [id number] AGE: 56 ADM/REG DATE : 11/11/16 MR#: [id number] REPORT SERV DATE: 11/24/16 DICTATED BY: DATE: REPORT STATUS : Draft TRANSCRIBED BY: MODL DATE: 11/24/16 had patchy infiltrates. On 11/24, the patient has showed increased respiratory rate without fever, and ABGs were drawn. Her pH was 7.52, pCO2 was 30, PO2 was 103, base excess is 1.0, bicarb is 23.4, O2 saturation is 98.1. LAB WORK: The patient's current labs on 11/24: Sodium is 139, potassium is 4.0, chloride is 104, carbon dioxide is 23, BUN is 19, creatinine is 0.44, GFR is 113, glucose is 117, calcium is 8.1, magnesium 2.0, phosphorus 1.7. WBCs 9.8, hemoglobin 8.7, hematocrit 26.1, platelets 101. SLC/MODL Danielle Cade NP / [id number] CC: Deejay Wynn MD
--- NOTE | ~2016-11-11 | IDS ---
Interim Discharge Summary [facility] [address] [place]. [address] NAME: ISAI CLAYTON : 60 STATUS : ADM IN PAT#: [id number] AGE: 56 ADM/REG DATE : 11/11/16 MR#: [id number] REPORT SERV DATE: 11/18/16 DICTATED BY: ISABELL GOLDMAN DATE: 11/18/16 REPORT STATUS : Draft TRANSCRIBED BY: MODL DATE: 11/18/16 ADMISSION DATE: 11/11/2016 DISCHARGE DATE: PROBLEM LIST: 1. Severe multiple sclerosis exacerbation. Repeat MRI on this admission showed a tumor active multiple sclerosis with increasing mass effect on the right side. Exam also showed some slight increment since the first exam. The patient has been treated with high-dose steroid 500 mg Solu-Medrol every 12 hours for a total of seven days. Now, she is on oral prednisone. 2. Hypertension, was more prominent along with a high-dose steroid. She finished the high dose steroid, so we need to make adjustment if it is needed on her hypertension medication. 3. Chronic pain. Initially, when she came to the hospital with severe encephalopathy, her regular medication has been slightly decreased and she has been on a small dose of medication than before and tolerating okay. 4. Tobacco abuse. Nicotine patch was restarted yesterday. 5. Inability to eat and dysphagia. The patient's mental status has been decreased during this hospitalization and the eating was another issue for her nutrition robison, so NG was started. Tube feeding was started, and she had marginally elevated residual. However, Dr. Hurst confirmed that she had a history of gastroparesis and recommended J-tube rather than the G-tube, so therefore today she went down the intervention radiologist to get a CT-guided J-tube. The J-tube is successfully inserted. The patient will get tube feedings through it. HISTORY OF PRESENT ILLNESS: This is a 56-year-old female patient, who has had multiple sclerosis for a while, had a recent hospitalization through this hospitalization, went to the [facility], but she could not get enough physical therapy because her mental status has been worsened. Therefore, she came back to the hospital. She was seen by Dr. Yanez again and had a reevaluation with the MRI. MRI showed some slight increment of her mass and swelling. Therefore, she was put on another dose of high-dose steroid. EEG was negative, just slightly slower activities without significant focal seizure or epileptic activities. After she was put on the high-dose steroid without any significant improvement, Dr. Yanez talked to Dr. Yarbrough who is her regular neurologist. They did decide to have a lumbar puncture to see the ALYSA virus titer. The LP was done. JV virus titer is not back yet. Meanwhile, she finished a high-dose steroid therapy. During the hospitalization, her blood pressure has been more elevated. It is contributed by the high-dose steroid. Now, she is off the IV steroid. She is on prednisone 60 mg once a day. We need to make an adjustment on hypertension medication as her steroids is decreased. Tube feeding will be started through the J-tube and we started to talk about the discharge plan at this point. The patient's is considering nursing home facility if the family members are agreed and also at the private room that he can stay with this patient. I had a long discussion regarding disposition and plan of care for the next time. She has a very poor prognosis. Interim Discharge Summary [address] [address] NAME: ISAI CLAYTON : 60 STATUS : ADM IN [facility]#: [id number] AGE: 56 ADM/REG DATE : 11/11/16 MR#: [id number] REPORT SERV DATE: 11/18/16 DICTATED BY: ISABELL GOLDMAN DATE: 11/18/16 REPORT STATUS : Draft TRANSCRIBED BY: CARMINE DATE: 11/18/16 EKHerson/CARMINE Isabell Goldman M.D. / [id number] CC: Isabell Goldman M.D. NO PCP
--- NOTE | ~2016-11-11 | CN ---
Consultation Report [facility] [address] [place]. [address] NAME: ISAI CLAYTON : 60 STATUS : ADM IN PAT#: [id number] AGE: 56 ADM/REG DATE : 11/11/16 MR#: [id number] REPORT SERV DATE: 11/12/16 DICTATED BY: DATE: REPORT STATUS : Draft TRANSCRIBED BY: MODL DATE: 11/11/16 NEUROLOGY CONSULTATION. DATE OF CONSULTATION: 11/11/2016 REASON FOR CONSULT: Encephalopathy, clinical deterioration, history of multiple sclerosis. HISTORY OF PRESENT ILLNESS: This is a 56-year-old female with a history of multiple sclerosis, previously on Tysabri with recent hospitalization noted to have right parietal lesion, concern for tumor fracture and multiple sclerosis. The patient has had a PET CT scan demonstrated no significant metabolic activity, less concerning for tumor. The patient was noted to have IV Solu-Medrol for five days and subsequently discharged, with the patient noted to have to be following commands at that time, but still noted to have confusion waxing and waning. The patient's case was discussed with Dr. Ronald Yarbrough at this time who agree with monitoring without brain biopsy. The patient was discharged to [facility] with the patient subsequently noted to have a deterioration of clinical status. At the time of evaluation, the patient was noted to have confusion as well as left-sided neglect. Otherwise, the patient was not noted to have any recent illness or any recent fever. REVIEW OF SYSTEMS: Negative except for those mentioned in the HPI. PAST MEDICAL HISTORY: Significant for multiple sclerosis, recent hospital stay with the abnormal MRI and right parietal lesion, history of seizure disorder, history of stroke in the past as well as carotid artery disease, history of chronic pain, hypothyroidism, hypertension, hyperlipidemia, history of autonomic insufficiency with syncopal episodes, as well as gastroparesis. ALLERGIES: THE PATIENT WAS NOTED TO HAVE ALLERGY TO PHENERGAN, IMITREX, AND TRIPTAN. SOCIAL HISTORY: History of tobacco usage. She has not used recently secondary to hospitalization. Denies illicit drug usage. Denies alcohol abuse. FAMILY HISTORY: Significant for coronary artery disease, as well as the patient recently on p.o. along steroid taper. PHYSICAL EXAMINATION: VITAL SIGNS: At the time of evaluation, the patient's vital signs are T-max of 98.1, heart rate of 68, respiration of 16, and blood pressure of 159/63. GENERAL: The patient is a well-developed, well-nourished, in no acute distress. CARDIOVASCULAR: Regular rate and rhythm. No carotid bruits were otherwise auscultated. PULMONARY: Clear to auscultation bilaterally. NEUROLOGICAL: Generally the patient is alert and oriented to self only, not oriented to place, year, or month. Follows simple commands at the time of evaluation, inappropriate happy affect was otherwise noted at the time of evaluation. Decreased attention span, Consultation Report [place] [id number] [place]. [address] NAME: ISAI CLAYTON : 60 STATUS : ADM IN PAT#: [id number] AGE: 56 ADM/REG DATE : 11/11/16 MR#: [id number] REPORT SERV DATE: 11/12/16 DICTATED BY: DATE: REPORT STATUS : Draft TRANSCRIBED BY: MODL DATE: 11/11/16 unable to perform registration or recall at the time of my evaluation. Cranial nerves 2 through 12, pupils equal, round, and reactive to light. Horizontal eye movement was noted with the patient noted she have no clear blink to threat response and reports a symmetrical sensation, but was noted to have left-sided neglect at the time of evaluation. The facial expression appeared to be roughly symmetric. The patient was noted to have ataxia, with the patient noted to have worse on her left upper extremity with the patient able to move bilateral upper and lower extremity against gravity. Gait was not evaluated at the time of evaluation. Deep tendon reflex was diffusely hyperreflexic. Upgoing toe on bilateral plantar reflexes, coordination, again ataxia on bilateral upper extremity. LABORATORY STUDY: Laboratory study is currently pending. Urinalysis demonstrated negative leukocyte esterase and negative nitrite. CT scan of the brain is pending. IMPRESSION: 1. Encephalopathy. 2. Multiple sclerosis with the patient noted to have recent hospital admission and discharge of altered mental status with the patient's MRI at that time found to have the right parietal lesion minimal contrast enhancement status post IV Solu-Medrol x5 days at that time, and the patient is currently on low steroid taper. Once the patient noted to have no significant clinical improvement the patient was then subsequently discharged to rehab after discussion of the patient's case with the patient's primary neurologist, Dr. Ronald Yarbrough. The patient at the rehabilitation was noted to have apparent decline of mental and clinical status. We will repeat MRI of the brain with and without contrast as well as restart the patient on IV Solu-Medrol [address] Yarbrough was notified outpatient returned to the hospital and readmission. RECOMMENDATION: 1. MRI of the brain with and without contrast. 2. D/C p.o. prednisone. 3. We will start the patient on Solu-Medrol 500 mg IV b.i.d. 4. Ammonia level with morning labs. [facility]/MODL Ranjan Smith MD / [id number] CC: Deejay Wynn MD
--- NOTE | ~2016-11-11 | CN ---
Consultation Report [facility] [address] [place]. [address] NAME: ISAI CLAYTON : 60 STATUS : ADM IN PAT#: [id number] AGE: 56 ADM/REG DATE : 11/11/16 MR#: [id number] REPORT SERV DATE: 11/18/16 DICTATED BY: PANDA GONZALEZ DATE: 11/18/16 REPORT STATUS : Draft TRANSCRIBED BY: MODL DATE: 11/18/16 INPATIENT CONSULT NOTE DATE OF CONSULTATION: 11/18/2016 REASON FOR CONSULTATION: Inability to provide own nutrition secondary to MS flare, request for PEG tube placement. HISTORY OF PRESENT ILLNESS: Ms. Clayton is a very unfortunate 56-year-old female with a past medical history most significant for multiple sclerosis, but also for history of prior dysphagia and fvzbrwzb-us-zktdio gastroparesis, who presented to [facility] for readmission with worsening decline in her mental status secondary to multiple sclerosis flare. The patient has been suffering from worsening of her disease for almost one month at this point and is currently one week into her second hospitalization. With the patient's altered mental status, she has been unable to provide her own nutrition and has been unable to eat. Because of this, GI was consulted for consideration of a PEG tube placement. In 03/2016, approximately 7 months ago, the patient was having problems with persistent nausea, vomiting, and abdominal pain, and underwent gastric emptying study for concern of possible gastroparesis and was found to have jwfcmlbo-tg-qwzfzg gastroparesis with 80% of activity remaining within the stomach at the end of 80 minutes, but material migrating normally through the small bowel. On examination today, the patient was not found to be in a respiratory distress and was saturating normally, however, the patient was found to have gurgling noises coming from her upper respiratory tract. The patient's NG tube that was already placed was hooked up to suction with removal of a moderate amount of brown liquid from her stomach after having been n.p.o. for more than 8 hours. REVIEW OF SYSTEMS: Unable to be performed given the patient's altered mental status. PAST MEDICAL HISTORY: Includes, 1. Multiple sclerosis. 2. Gastroparesis. 3. Depression. 4. Anxiety. 5. Hypothyroidism. 6. Hypertension. 7. Migraine headaches. 8. Autonomic insufficiency. 9. History of seizures. 10.History of stroke. 11.History of peptic ulcer disease. 12.History of esophageal stricture status post prior dilations. Consultation Report [address] [place]. [address] NAME: ISAI CLAYTON : 60 STATUS : ADM IN [facility]#: [id number] AGE: 56 ADM/REG DATE : 11/11/16 MR#: [id number] REPORT SERV DATE: 11/18/16 DICTATED BY: PANDA GONZALEZ DATE: 11/18/16 REPORT STATUS : Draft TRANSCRIBED BY: CARMINE DATE: 11/18/16 13.Status post hysterectomy. 14.Status post thyroidectomy. FAMILY HISTORY: No known family history of GI-related malignancy. SOCIAL HISTORY: The patient is a tobacco user. No alcohol or illicit substance use. ALLERGIES: THE PATIENT HAS ALLERGIES TO, 1. TRIPTANS. 2. PHENERGAN. MEDICATIONS: Outpatient medications include, 1. Tylenol. 2. Lipitor. 3. Klonopin. 4. Vitamin B12. 5. Colace. 6. Doxepin. 7. Lovenox. 8. Vitamin D. 9. Fentanyl patch. 10.Neurontin. 11.Robitussin. 12.Hydrocortisone. 13.Sliding scale insulin. 14.Lamictal. 15.Levothyroxine. 16.Morphine. 17.Nystatin. 18.Zofran. 19.Protonix. 20.MiraLAX. 21.Prednisone. PHYSICAL EXAMINATION: VITAL SIGNS: Most recent vital signs include a temperature of 97.4, pulse of 52, blood pressure is 150/78, and saturating 97% on room air. GENERAL INSPECTION: Reveals a middle-aged female, lying in bed, no apparent distress. HEENT: Head is normocephalic, atraumatic. The patient has an NG tube in her left naris that when hooked to suction yielded a moderate amount of brown fluid approximately 200-300 mL. The patient had no scleral icterus. No lymphadenopathy. CARDIAC: Heart rate was regular with normal S1, S2. PULMONARY: Lung sounds were coarse bilaterally with prominent upper respiratory gurgling. ABDOMEN: Soft, nontender, nondistended with normoactive bowel sounds. Consultation Report [place] [id number] [facility] [place]. [address] NAME: ISAI CLAYTON : 60 STATUS : ADM IN PAT#: [id number] AGE: 56 ADM/REG DATE : 11/11/16 MR#: [id number] REPORT SERV DATE: 11/18/16 DICTATED BY: PANDA GONZALEZ DATE: 11/18/16 REPORT STATUS : Draft TRANSCRIBED BY: CARMINE DATE: 11/18/16 EXTREMITIES: The patient had no cyanosis, clubbing, or edema. SKIN: No jaundice or rash was noted. NEUROLOGIC/PSYCHIATRIC: Neurologic and psychiatric evaluation was and unable to be performed. LABORATORY DATA: Most recent laboratory results include a CBC with a white count of 7.0, hemoglobin of 11.0, and a platelet count of 87,000. Basic electrolyte panel revealed no significant abnormalities aside from an elevated BUN of 39. Pre-albumin was elevated at 46. IMAGING: No pertinent imaging to review. ASSESSMENT AND PLAN: Ms. Clayton is an unfortunate 56-year-old female with significant mental status changes secondary to multiple sclerosis flare, who also has a known history of cgjbvulj-dw-aiplch gastroparesis. In patients with significant gastroparesis, PEG tube placement is a relative contraindication given the significant increase in potential for reflux and aspiration pneumonia. A more suitable form of enteral feeding would be placement of a jejunostomy tube, which would significantly decrease any potential for reflux and aspiration. Would recommend consulting Interventional Radiology or General Surgery for placement of a J-tube. Thank you very much for this interesting consult and allowing us to participate in Ms. Clayton's care. We will sign off at this time. Please call with any questions or concerns you may have. [facility]/CARMINE Panda Gonzalez MD / [id number] CC: Isabell Goldman M.D.
--- NOTE | ~2016-11-11 | EEG ---
Electroencephalogram [place] [id number] [place]. [address] NAME: ISAI CLAYTON : 60 STATUS : ADM IN PAT#: [id number] AGE: 56 ADM/REG DATE : 11/11/16 MR#: [id number] REPORT SERV DATE: 11/19/16 DICTATED BY: NELDA ASHER DATE: 11/18/16 REPORT STATUS : Draft TRANSCRIBED BY: CARMINE DATE: 11/18/16 INTERPRETING PHYSICIAN: Nelda Asher M.D., Neurology. REASON FOR EEG: Encephalopathy, history of seizures, rule out recurrent seizures, multiple sclerosis. 23-surface electrodes, 10 to 20 international placement was used. The patient was noted to be awake, drowsy, and very tense throughout the study. The background activity consisted of moderate voltage, poorly organized, 6 to 7 cycles per second located in the posterior head regions. The anterior portion of the recording was obscured by continuous muscle artifact. During brief periods, when the patient remained less tense, evaluation of the cerebral activity showed no evidence of paroxysmal epileptiform features. There was no significant asymmetry of cerebral activity. The EEG appeared diffusely slow. Photic stimulation did not produce any changes or bring out additional abnormalities. IMPRESSION: ABNORMAL EEG CHARACTERIZED BY PRESENCE OF DIFFUSE SLOWING OF CEREBRAL ACTIVITY. THIS EEG WAS TECHNICALLY DIFFICULT TO INTERPRET IN VIEW OF PERSISTENT MUSCLE ARTIFACT SECONDARY TO THE PATIENT KEEPING HER EYES OPEN AND CLENCHING HER TEETH. MENTIONED ABOVE, NO PAROXYSMAL EPILEPTIFORM ACTIVITY WAS SEEN DURING THIS STUDY. CLINICAL CORRELATION IS RECOMMENDED. MIRIAN/CARMINE Nelda Asher MD / [id number] CC: Isabell Goldman M.D.
--- NOTE | ~2016-11-11 | EEG ---
Electroencephalogram [facility] [address] [place]. [address] NAME: ISAI CLAYTON : 60 STATUS : ADM IN PAT#: [id number] AGE: 56 ADM/REG DATE : 11/11/16 MR#: [id number] REPORT SERV DATE: 11/25/16 DICTATED BY: DATE: REPORT STATUS : Draft TRANSCRIBED BY: MODL DATE: 11/25/16 NEUROLOGY EEG REPORT CLINICAL INDICATIONS: PML, concern for seizure. DESCRIPTION: This EEG was performed using 10/20 electrode placement system. During the EEG study, mildly asymmetric background activity was noted with the patient noted to have a subtle right parietal slowing at the time of evaluation, predominant occipital rhythm of roughly 5 hertz. A photic stimulation was performed. No clear driving response was otherwise noted during the EEG evaluation. No hyperventilation was performed secondary to the patient's underlying medical condition. INTERPRETATION: During the EEG study, the patient was noted to have achieved drowsy state. No focal abnormalities, seizure activity, or seizure discharge was otherwise noted during the EEG evaluation. Clinical correlation is recommended. [facility]/MODL Ranjan Smith MD / [id number] CC: Deejay Wynn MD
--- NOTE | ~2016-11-11 | OP ---
Record Of Operation [facility] [address] [place]. [address] NAME: ISAI CLAYTON : 60 STATUS : ADM IN PAT#: [id number] AGE: 56 ADM/REG DATE : 11/11/16 MR#: [id number] REPORT SERV DATE: 11/20/16 DICTATED BY: ALBERTO MONROY JR. DATE: 11/20/16 REPORT STATUS : Draft TRANSCRIBED BY: CARMINE DATE: 11/20/16 DATE OF PROCEDURE: 11/20/2016 PREOPERATIVE DIAGNOSES: Multiple sclerosis with encephalopathy, need for plasmapheresis. POSTOPERATIVE DIAGNOSES: Multiple sclerosis with encephalopathy, need for plasmapheresis. OPERATION: Insertion of right internal jugular vein Vas-Cath catheter. SURGEON: Dr. Alberto Monroy. HISTORY: This is a 56-year-old, white female, who has had multiple sclerosis for some time. She was admitted on 11/11/2016 with encephalopathy. It was felt that she has not responded to therapy so far and is in need for plasmapheresis. PROCEDURE: The patient was placed on the operating room table. She was positioned as normal as possible but it was an abnormal position due to her contractures. Both sides of the neck and shoulder were prepped and draped in usual sterile manner. I initially went to the left shoulder region and tried to find the left subclavian vein. I could never find to get any venous return. I then went to the right shoulder area and tried to find the right subclavian vein. I found the vein, good venous return, and placed a wire, and then had difficulty trying to get a Vas-Cath to thread. I then gave up on this area, went to the left side of the neck. I then tried to find the left internal jugular vein. There was essentially no vein seen on ultrasound. I then went to the right side of the neck, found the right internal jugular vein, placed a wire down the right side of the heart, and then threaded a Vas-Cath catheter. It was irrigated with heparinized saline, and sutured into place. The patient seemed to tolerate everything remarkably well under circumstances. O2 saturations 100% for the entire case. There were no intraoperative complications. ESTIMATED BLOOD LOSS: Negligible. DF/MODL Alberto Monroy Jr., M.D. / [id number] CC: Deejay Wynn MD
--- NOTE | ~2016-11-11 | EGD ---
EGD REPORT [facility] [address] [address] NAME: LISA CLAYTON : 60 STATUS : ADM IN PAT#: [id number] AGE: 56 ADM/REG DATE : 11/11/16 MR#: [id number] REPORT SERV DATE: 11/21/16 DICTATED BY: CRISTINA WHITE DATE: 11/21/16 REPORT STATUS : Draft [facility]ANS[facility]IB[facility]: [facility] DATE: 11/21/16 Pulmonology Patient Name: Lisa Clayton Procedure Date: 11/20/2016 5:37 PM Date of : 1960 Attending MD: KERVIN WHTIE MD Procedure Date No Time: 11/20/2016 Procedure: Chest Tube Placement Indications: Iatrogenic pneumothorax Providers: KERVIN WHITE MD Referring MD: SHARMIN AVENDANO JR. Medicines: Intradermal lidocaine 2% with epinephrine 1:100,000 10 mls. See anesthesia record Complications: No immediate complications Procedure: Pre-Anesthesia Assessment: - A History and Physical has been performed. Patient meds and allergies have been reviewed. The risks and benefits of the procedure and the sedation options and risks were discussed with the patient. All questions were answered and informed consent was obtained. Patient identification and proposed procedure were verified prior to the procedure by the physician and the nurse in the pre-procedure area in the procedure room. Mental Status Examination: alert but confused. Airway Examination: normal oropharyngeal airway. Respiratory Examination: poor air movement. CV Examination: RRR, no murmurs, no S3 or S4. ASA Grade Assessment: IV - A patient with severe systemic disease that is a constant threat to life. After reviewing the risks and benefits, the patient was deemed in satisfactory condition to undergo the procedure. The anesthesia plan was to use monitored anesthesia care (MAC). Immediately prior to administration of medications, the patient was re-assessed for adequacy to receive sedatives. The heart rate, respiratory rate, oxygen saturations, blood pressure, adequacy of pulmonary ventilation, and response to care were monitored throughout the procedure. The physical status of the patient was re-assessed after the procedure. After consent was obtained, The procedure was accomplished with ease. Findings: After consent was obtained, a time out was performed. The patient was placed in the right lateral decubitus position with the ipsilateral arm above the patient's head. The patient was sedated by anesthesia, with conscious sedation. After donning cap, mask, sterile gown and gloves, EGD REPORT [address] [address] NAME: LISA CLAYTON : [birth year] STATUS : ADM IN [facility]#: [id number] AGE: 56 ADM/REG DATE : 11/11/16 MR#: [id number] REPORT SERV DATE: 11/21/16 DICTATED BY: CRISTINA WHITE DATE: 11/21/16 REPORT STATUS : Draft TRANSCRIBED BY: [facility] DATE: 11/21/16 the patient was prepped with chlorhexadine and drapped. 15 ccs of 2% lidocaine with epinephrine 1:100,000 was used to numb the region. A finder needle was then used to locate air with aspiration of air. A guide wire was placed into the pleural space followed by serial dilation using Seldinger technique. A 16 Mauritian chest tube was then advanced over the guide wire into the pleural space to a level of 15 cm at the skin. The skin was approximated first, via 3-0 silk sutures with simple interrupted ties and then a Tamayo hitch was performed to secure the tube. The tube was then placed to suction. Sterile gauze was placed at the skin junction and covered with sterile 4x4's. The site was then taped and secured with a multi-purpose medical tube duong. The pleuravac was checked and no air leak indicated. The catheter was then secured using 3.0 silk and a dressing was applied. Impression: - Successful left chest tube placement. Recommendation: 1. Post-procedure stat portable chest x-ray 2. Place patient on -20 cm H20 suction Attending Participation: I personally performed the entire procedure. KERVIN WHITE MD 11/21/2016 12:41 PM This report has been signed electronically. Number of Addenda: 0 Note Initiated On: 11/21/2016 12:37 PM [address] [address]
--- NOTE | ~2016-11-11 | EEG ---
Electroencephalogram [facility] [address] [facility] [place]. [address] NAME: ISAI CLAYTON : 60 STATUS : ADM IN PAT#: [id number] AGE: 56 ADM/REG DATE : 11/11/16 MR#: [id number] REPORT SERV DATE: 12/03/16 DICTATED BY: DATE: REPORT STATUS : Draft TRANSCRIBED BY: MODL DATE: 12/03/16 NEUROLOGY EEG REPORT CLINICAL INDICATIONS: Encephalopathy, PML. DESCRIPTION: This EEG was performed using 10/20 electrode placement system. During the EEG study, the patient was noted to have mild asymmetric background activity with the patient noted to have worsening generalized slowing in the right hemisphere compared to the left. Otherwise, generalized slowing was seen during the EEG study with predominant occipital rhythm between 5-7 hertz. Photic stimulation was performed. No clear driving response was seen. Hyperventilation was not performed secondary to the patient's intubated status. No electrographic seizure was otherwise seen during the EEG study. No clinical seizure was observed during the EEG study. The patient during the EEG study was noted to have nail bed pinch in the left as well as right toe. The patient was noted to have movement of right lower extremity with the right lower extremity nail bed pinch with mild reactivity on EEG tracings. The patient also achieved drowsy state during the EEG study. INTERPRETATION: This EEG study obtained during awake and drowsy state may be considered abnormal secondary to presence of generalized slowing, worse in the right hemisphere compared to the left, suggest underlying structure abnormalities. In addition, the patient was also noted to have mild reactivities to nail bed pinch in the right lower extremity but not in the left. Clinical correlation is recommended. [facility]/MODL Ranjan Smith MD / [id number] CC: Isabell Goldman M.D.
--- NOTE | ~2016-11-11 | CN ---
Consultation Report [facility] [address] [place]. 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 HISTORY OF PRESENT ILLNESS: Ms. Clayton is a 56-year-old white female with MS, followed by Dr. Yarbrough, who has had MS exacerbation, completed steroids, has significant encephalopathy, weakness with no improvement, and now we have been asked to see the patient and plan for plasma exchange. It is of note that the patient has had to have a J-tube placed. She has also gastroparesis and has an NG tube that is to drainage constantly. She is on no anticoagulants, no aspirin. PAST MEDICAL HISTORY: Anxiety, depression, hypothyroidism, hypertension, orthostatic hypotension, carotid disease, seizures, CVA, peripheral vascular disease, gastroparesis, esophageal stricture. SOCIAL HISTORY: She is . Smokes. No alcohol. FAMILY MEDICAL HISTORY: Diabetes, CVA, heart disease. MEDICATIONS: Lipitor, Catapres, vitamin B12, Colace, Sinequan, Lexapro, Duragesic, Neurontin, Apresoline, NovoLog, Lamictal, Synthroid, Habitrol, Protonix, MiraLax, Deltasone. REVIEW OF SYSTEMS: Unable to obtain due to the patient's mental status. PHYSICAL EXAMINATION: VITAL SIGNS: She is afebrile. Blood pressure from 160s to 190s, pulse in the low 100s, respiratory rate 20, O2 of 94%. GENERAL: This is a chronically ill-appearing, thin, frail white female. She does not awaken. HEENT: Eyes closed. Sclerae nonicteric. Oral mucosa dry. NG tube in place with dark brown drainage to suction. LUNGS: Respirations, even and unlabored. Breath sounds clear to auscultation. HEART: Rate is regular, but increased. I did not hear any murmur, rub, or gallop. ABDOMEN: With some tenderness around her J-tube. Cannot access back. EXTREMITIES: No edema. SKIN: No unusual rashes or skin lesions. NEURO: With weakness throughout. She does move her leg when I touch her and her arm when I was examining abdomen. PERTINENT LABORATORY AND X-RAY FINDINGS: Chest x-ray clear. Sodium 139, potassium 3.9, Consultation Report [facility] [place] [id number] [place]. [address] NAME: ISAI CLAYTON : 60 STATUS : ADM IN PAT#: [id number] AGE: 56 ADM/REG DATE : 11/11/16 MR#: [id number] REPORT SERV DATE: 11/19/16 DICTATED BY: DATE: REPORT STATUS : Draft TRANSCRIBED BY: MODL DATE: 11/19/16 chloride 107, CO2 of 23, BUN of 31, creatinine of 0.7, calcium 8. WBC 12, H and H 11 and 34, platelets 85,000. IMPRESSION: 1. 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 2. Multiple sclerosis, status post steroids. 3. Hypertension. 4. Chronic pain. 5. Gastroparesis. PLAN: We will plan for a Vas-Cath tomorrow and start plasma exchange five treatments, tomorrow will be day 1 after Vas-Cath placed. We will follow electrolytes and follow along with you. Thank you for the consultation. ALYSA/CARMINE KARAN Jones / [id number] CC: Deejay Wynn MD
--- NOTE | ~2016-11-11 | EEG ---
Electroencephalogram [facility] [address] [place]. [address] NAME: ISAI CLAYTON : 60 STATUS : ADM IN PAT#: [id number] AGE: 56 ADM/REG DATE : 11/11/16 MR#: [id number] REPORT SERV DATE: 12/18/16 DICTATED BY: NELDA ASHER DATE: 12/17/16 REPORT STATUS : Draft TRANSCRIBED BY: MODL DATE: 12/17/16 The actual report was handwritten in the patient's chart at the time of EEG. REQUESTING PHYSICIAN: Dr. Isabell Goldman INTERPRETING PHYSICIAN: Nelda Asher MD. REASON FOR EEG: Altered mental status, multiple sclerosis. Twenty-three surface electrodes, 10-20 international placement was used. The patient was noted to be awake and drowsy throughout the study. Brief periods of light sleep were recorded. Photic stimulation was performed. Video monitoring was utilized. The background activity consisted of poorly organized 5-6 cycles per second located in the posterior portions of the right hemisphere and left hemisphere. Intermittent slower frequencies in the theta and delta range were noted. No paroxysmal epileptiform activity was seen during this study. The patient's awake overnight monitor showed sinus rhythm at a rate of approximately 62 beats per minute. Slower frequencies in the theta and delta range were noted scattered throughout during drowsiness and light sleep. Moderate amount of EKG artifact was seen in the referential leads. IMPRESSION: ABNORMAL EEG CHARACTERIZED BY PRESENCE OF SLOWING AND DISORGANIZATION OF CEREBRAL ACTIVITY. THIS EEG MAY BE COMPATIBLE WITH DIFFUSE CEREBRAL DYSFUNCTION. CLINICAL CORRELATION IS RECOMMENDED. INCREASE OF SLOWER FREQUENCIES WAS NOTED IN THE RIGHT TEMPOROPARIETAL REGIONS. NO PAROXYSMAL EPILEPTIFORM ACTIVITY WAS SEEN DURING THE STUDY. MIRIAN/CARMINE Nelda Asher MD / [id number] CC: Isabell Goldman M.D.
--- NOTE | ~2016-11-11 | OP ---
Record Of Operation [facility] [address] [place]. [address] NAME: ISAI CLAYTON : 60 STATUS : ADM IN PAT#: [id number] AGE: 56 ADM/REG DATE : 11/11/16 MR#: [id number] REPORT SERV DATE: 12/03/16 DICTATED BY: KALLIE MEDRANO IV DATE: 12/02/16 REPORT STATUS : Draft TRANSCRIBED BY: CARMINE DATE: 12/02/16 DATE OF PROCEDURE: 12/02/2016 INTUBATION PROCEDURE NOTE. PREOPERATIVE DIAGNOSIS: Severe encephalopathy with hypercapnic respiratory failure. POSTOPERATIVE DIAGNOSIS: Severe encephalopathy with hypercapnic respiratory failure. PROCEDURE: Laryngoscopic intubation with ventilator orders. CONTRAINDICATIONS: None. CONSENT: No consent is obtained to lifesaving procedure. The patient had previously been a DNR, which had been reversed though I reviewed this change with the patient's who is the decision maker who confirmed that the patient was a full code. PREOPERATIVE LABORATORIES: The patient's platelet count was 224,000. LUMBER CHAIN OFFBEARER: Kallie Medrano M.D. METHOD: The patient was brought to the head of the bed. All equipments made available. The patient was Ambu bagged, ventilated with oxygen saturations in the 99% range. The patient was given 20 mg of etomidate to provide some sedation. Once the patient was sedated, a curved laryngoscopic blade was used to visualize the vocal cords. The vocal cords moved with respiratory efforts. A #7 endotracheal tube was advanced through the vocal cords without difficulty. It was secured at 19 cm. A chest x-ray is currently pending. There was copious thick secretions that removed after intubation which were sent for culture. Blood gas will be obtained in 30 minutes. Chest x-ray will be obtained to confirm tube placement daily. The patient tolerated the procedure well with no blood loss. GONZALO/CARMINE Kallie Medrano IV, M.D. / [id number] CC: Isabell Glodman M.D.
--- NOTE | ~2016-11-11 | CN ---
Consultation Report [address] [place]. [address] NAME: LISA CLAYTON : 60 STATUS : ADM IN PAT#: [id number] AGE: 56 ADM/REG DATE : 11/11/16 MR#: [id number] REPORT SERV DATE: 11/20/16 DICTATED BY: SANJAY WHITE DATE: 11/20/16 REPORT STATUS : Draft TRANSCRIBED BY: MODHerson DATE: 11/20/16 CONSULTATION REPORT DATE OF CONSULTATION: Dear Dr. Monroy: Thank you for requesting my opinion regarding evaluation and management of Ms. Lisa Clayton's left-sided pneumothorax. Ms. Clayton is an extremely unfortunate 56-year-old female with a significant past medical history of advanced multiple sclerosis, on natalizumab; seizure disorder; history of stroke who presented with progressive altered mental status and weakness. The patient underwent a lumbar puncture demonstrating PCR positive for ALYSA virus and the patient underwent Vas-Cath placement for plasma exchange. The patient's procedure was complicated by her extreme contractured anatomy, was unable to lie flat, multiple attempts were made on the left subclavian site and then transitioned to a successful right-sided Vas-Cath placement. The patient's immediate postoperative course was uncomplicated, however, chest x-ray demonstrated a moderate left-sided pneumothorax. The patient is unable to communicate and limited. I spoke with her who gave verbal consent regarding the issue of her pneumothorax and need for emergent chest tube placement as a complication of the prior procedure. The patient's family are aware that there is risk for bleeding and [id number]-[id number] lung puncture with chest tube placement or malplacement. REVIEW OF SYSTEMS: Could not be obtained due to the patient's altered mental status. PAST MEDICAL HISTORY: 1. Advanced MS. 2. Anxiety. 3. Depression. 4. Hypothyroidism. 5. Hypertension. 6. Orthostatic hypotension. 7. Carotid disease. 8. Seizure. 9. CVA. 10.Peripheral vascular disease. 11.Gastroparesis. 12.Esophageal stricture. PAST SURGICAL HISTORY: As above and Vas-Cath placement. Consultation Report [address] [place]. [address] NAME: LISA CLAYTON : 60 STATUS : ADM IN PAT#: [id number] AGE: 56 ADM/REG DATE : 11/11/16 MR#: [id number] REPORT SERV DATE: 11/20/16 DICTATED BY: SANJAY WHITE DATE: 11/20/16 REPORT STATUS : Draft TRANSCRIBED BY: CARMINE DATE: 11/20/16 SOCIAL HISTORY: . Smokes. She has no history of alcohol or illicit drug abuse. HOME MEDICATIONS: Reviewed and located in the paper chart. PHYSICAL EXAMINATION: VITAL SIGNS: The patient's vital signs are stable. Afebrile, T-current of 98; pulse of 111; 18 respirations; now currently on supplemental oxygen 2 to 4 liters 94%; and blood pressure 123/74. Height 4 feet and 10 inches, 99 pounds, BMI of 20. GENERAL: Chronically ill-appearing female in no acute respiratory distress, although likely heavily sedated and post MAC anesthesia, difficult to assess, but the patient is following some simple yes and no questions. HEENT: Normocephalic and atraumatic. Pupils are equal, round, reactive to light and accommodation. Posterior oropharynx is clear. NECK: No JVD. No LAD. Trachea midline. CARDIOVASCULAR: Regular rate and rhythm. S1 and S2 present. LUNGS: Diminished breath sounds bilaterally. ABDOMEN: Nontender and nondistended. Soft. Positive bowel sounds. EXTREMITIES: No clubbing, cyanosis, or edema. SKIN: No new rashes, lesions, or ulcers. Right-sided Vas-Cath placement and multiple needle sticks noted on the left. NEUROLOGIC: Unable to assess given the patient's sedation and altered mental status. The patient has significant contractures. PSYCHIATRIC: Unable to assess due to patient's postanesthesia state. LABORATORY DATA: White count of 11, hemoglobin 11, hematocrit of 32, and platelet count of 72. Sodium of 138, potassium 4.0, chloride of 102, bicarb of 25, and creatinine of 0.56. HIV is negative. DIAGNOSTIC STUDIES: 1. Chest x-ray performed on 11/20/2016 was personally reviewed by me and I agree with the following interpretation of left-sided moderate-sized pneumothorax. 2. Repeat chest x-ray is pending. 3. Interval placement of a right-sided internal jugular Vas-Cath. 4. NG-OG tube in stable position. ASSESSMENT AND PLAN: Ms. Lisa Clayton is an unfortunate 56-year-old female with a significant past medical history of advanced multiple sclerosis with progressive encephalopathy. The patient underwent lumbar puncture that was ALYSA virus positive and was being prepped for plasma exchange. She underwent a Vas-Cath placement by Dr. Monroy. Bilateral attempts were made, the right side was successful, and the patient's postoperative course has been complicated by a moderate-sized left-sided pneumothorax. At this point, after discussing with the patient's and Dr. Monroy, the patient will need to have an emergent bedside left-sided chest tube placement. Consultation Report [place] [id number] [facility] [place]. [address] NAME: LISA CLAYTON : 60 STATUS : ADM IN PAT#: [id number] AGE: 56 ADM/REG DATE : 11/11/16 MR#: [id number] REPORT SERV DATE: 11/20/16 DICTATED BY: SANJAY WHITE DATE: 11/20/16 REPORT STATUS : Draft TRANSCRIBED BY: MODL DATE: 11/20/16 The patient's family are aware that the procedure is associated with potential life- threatening risks, including lung collapse and lung puncture and malplacement of the chest tube and life-threatening bleeding. RECOMMENDATIONS: A summary of my recommendations are as follows: 1. Proceed with emergent chest tube placement for pneumothorax. 2. Postprocedural recommendations will be located in the postoperative note in [employer]. Thank you for allowing me to participate in Ms. Clayton's care. VANESSA/CARMINE Sanjay White M.D. / [id number] CC: Deejay Wynn MD
--- NOTE | ~2016-11-11 | OP ---
Record Of Operation [facility] [address] [place]. [address] NAME: ISAI CLAYTON : 60 STATUS : ADM IN PAT#: [id number] AGE: 56 ADM/REG DATE : 11/11/16 MR#: [id number] REPORT SERV DATE: 12/18/16 DICTATED BY: BRITTNEY RIZVI DATE: 12/18/16 REPORT STATUS : Draft TRANSCRIBED BY: MODL DATE: 12/18/16 DATE OF PROCEDURE: 12/17/2016 PREOPERATIVE DIAGNOSIS: Encephalopathy, ventilator dependence. POSTOPERATIVE DIAGNOSIS: Encephalopathy, ventilator dependence. OPERATIVE PROCEDURE PERFORMED: Tracheostomy. INDICATIONS AND SIGNIFICANT HISTORY: The patient is a 56-year-old female with significant history of multiple sclerosis, who is currently being treated for progressive multifocal leukoencephalopathy. The patient has required continued mechanical ventilation, and was felt to benefit from tracheostomy placement. OPERATIVE PROCEDURE AND FINDINGS: After informed consent was obtained from the patient's , as well as discussion with the patient's son and a daughter, the patient was brought to the operating room and placed on the operating room table in supine position. At which point, the anterior neck was prepped and draped in the standard sterile fashion, and a 15 blade scalpel was used to make a horizontal skin incision following administration of general anesthetic. Subplatysmal flaps were elevated superiorly and inferiorly. Strap muscles were divided in midline and retracted laterally. The patient has had a prior thyroidectomy, but did not have a thyroid isthmus to divide. The anterior tracheal wall was identified, and it was entered via an inferiorly based Sourav type flap between, the second and third tracheal rings. A size 6 DCT tracheostomy tube was then inserted into the tracheal lumen after withdrawal of the oral endotracheal tube. Anesthesia circuit was connected and placement was confirmed with a rise and fall of the chest, return of end-tidal CO2, as well as adequate tidal volumes. The patient then had her tracheostomy tube secured at four points along the flange. A Velcro trach collar was applied. The patient was turned back toward Anesthesia, and taken to her Medical Intensive Care Unit bed in stable condition. COMPLICATIONS: None. ESTIMATED BLOOD LOSS: Less than 5 mL. IV FLUIDS: Per Anesthesia. DLA/MODL Brittney Rizvi M.D. / [id number] Record Of Operation [place] [address] [place]. [address] NAME: ISAI CLAYTON : 60 STATUS : ADM IN PAT#: [id number] AGE: 56 ADM/REG DATE : 11/11/16 MR#: [id number] REPORT SERV DATE: 12/18/16 DICTATED BY: BRITTNEY RIZVI. DATE: 12/18/16 REPORT STATUS : Draft TRANSCRIBED BY: MODL DATE: 12/18/16 CC: Isabell Goldman M.D.
--- NOTE | ~2016-11-11 | HP ---
History And Physical [id number] [place]. [address] NAME: ISAI CLAYTON : 60 STATUS : ADM IN PAT#: [id number] AGE: 56 ADM/REG DATE : 11/11/16 MR#: [id number] REPORT SERV DATE: 11/12/16 DICTATED BY: OSCAR RUVALCABA DATE: 11/12/16 REPORT STATUS : Draft TRANSCRIBED BY: MODL DATE: 11/12/16 DATE OF ADMISSION: 11/11/2016 CHIEF COMPLAINT: A 56-year-old female, presenting with increasing weakness, debilitation, and confusion. HISTORY OF PRESENT ILLNESS: The patient's history was obtained through careful interview with the patient and coupled with review of [employer] and [employer] medical records. The patient about a month ago had developed a "flare-up" of her chronic multiple sclerosis with increasing lower extremity weakness in particular. She was hospitalized around 10/26/2016, was found to have new lesions on her brain that were thought to be consistent with multiple sclerosis, plaque formation, and brain swelling, and has stayed here in our hospital for about a week being evaluated by Neurology and started on high dose steroids. She has been at [facility] for a week or more, but despite continuing steroids has had really no improvement in her weakness, and in fact over last four days has only had progression of debilitation with now inability to walk. There has also been concern as she has had increasing confusion over the last four days. She has become disoriented, incoherent, agitated, and somnolent. She has been having a "blank stare." No pain complaints though. No headaches. No chest pain. No abdominal pain. No back pain. She has chronic leg pain aching quality, continuous in duration 10/10 at times, as she describes it. No shortness of breath. No nausea or vomiting. No diarrhea. No fevers or chills. No orthostatic symptoms. REVIEW OF SYSTEMS: Otherwise, a 14-point review of systems was obtained and was negative. PAST MEDICAL HISTORY: 1. Multiple sclerosis seen over the last [address] Ronald Yarbrough. 2. Depression/anxiety. 3. Hypothyroidism. 4. Hypertension. 5. Migraine headaches. 6. Orthostatic hypotension with autonomic insufficiency. 7. Carotid disease seen by Dr. Nunez. 8. Seizures. 9. Stroke. 10.Gastroparesis. 11.Peptic ulcer disease. 12.Esophageal stricture with dilatation seen by Dr. Jackson. History And Physical [address] [address] NAME: ISAI CLAYTON : 60 STATUS : ADM IN PAT#: [id number] AGE: 56 ADM/REG DATE : 11/11/16 MR#: [id number] REPORT SERV DATE: 11/12/16 DICTATED BY: OSCAR RUVALCABA DATE: 11/12/16 REPORT STATUS : Draft TRANSCRIBED BY: CARMINE DATE: 11/12/16 13.Urinary tract infection. PAST SURGICAL HISTORY: 1. Hysterectomy. 2. Right wrist surgery. 3. Thyroidectomy. ALLERGIES: TO TRIPTANS AND PHENERGAN. SOCIAL HISTORY: The patient smokes cigarettes. No alcohol use. She is . Lives in [place], [place]. FAMILY HISTORY: Significant for diabetes and stroke. Mother with heart disease. Siblings with heart disease. CURRENT MEDICATIONS: 1. Tylenol. 2. Lipitor 40 mg daily. 3. Klonopin 2 mg p.o. b.i.d. 4. Vitamin B12. 5. Colace. 6. Doxepin 20 mg p.o. q.h.s. 7. Lovenox 40 mg subcutaneous daily. 8. Vitamin D. 9. Fentanyl patch. 10.Neurontin 300 mg p.o. q.h.s. 11.Robitussin. 12.Hydrocortisone for hemorrhoids. 13.Sliding scale insulin. 14.Lamictal 200 mg p.o. b.i.d. 15.Levothyroxine 88 mcg daily. 16.Morphine Immediate Release 15 mg p.o. q.6 hours p.r.n. 17.Nystatin. 18.Zofran. 19.Protonix 40 mg daily. 20.MiraLAX packet daily. 21.Prednisone taper. PHYSICAL EXAMINATION: VITAL SIGNS: Temperature 98.6, pulse 68, blood pressure 159/63, respiratory rate 16, and O2 saturation 98% on room air. GENERAL: Chronically ill-appearing female, but in no evidence of distress at this time. NEUROLOGICAL: The patient has 3/5 strength in her lower extremities and 4/5 strength in bilateral upper extremities. Her weakness does seem to be symmetrical at this time. She has cranial nerves 2 through 12 that are intact and symmetrical at this time. HEENT: Pupils equal, round, and reactive to light. No conjunctival pallor. No scleral History And Physical [address] [address] NAME: ISAI CLAYTON : 60 STATUS : ADM IN PAT#: [id number] AGE: 56 ADM/REG DATE : 11/11/16 MR#: [id number] REPORT SERV DATE: 11/12/16 DICTATED BY: OSCAR RUVALCABA DATE: 11/12/16 REPORT STATUS : Draft TRANSCRIBED BY: MODHerson DATE: 11/12/16 icterus. Nares are patent. Oropharynx is clear of obstruction. Mildly dry mucous membranes. NECK: Trachea midline. No thyromegaly. LYMPH: No cervical lymphadenopathy. No supraclavicular lymphadenopathy. RESPIRATORY: Clear to auscultation at bases. No wheezes, rales, or rhonchi. Normal respiratory effort. CARDIOVASCULAR: Regular rate and rhythm. No murmurs, rubs, or gallops. No extremity edema is appreciated. ABDOMEN: Soft, nontender, and nondistended. Normal bowel sounds auscultated throughout. No organomegaly. DERMATOLOGICAL: Warm and dry extremities. No pallor. No cyanosis. PSYCHIATRIC: Notably flat affect, but claims to be in a good mood. She is poorly oriented to details of time and location, but seems oriented to her recent history at least to a degree. LABORATORY DATA: White blood cell count 17.7, but within normal differential, hemoglobin 12, hematocrit 38, and platelets 135. Sodium 136, potassium 4.7, chloride 100, bicarb 25, BUN 28, creatinine 0.96, and glucose 145. Troponin negative. INR 1.1. ALT 78. Urinalysis is negative for infection. STUDIES: 1. Chest x-ray by my own evaluation shows no acute cardiopulmonary process. 2. EKG by my own evaluation shows sinus rhythm, no major abnormalities. 3. CT scan of the brain shows chronic changes. ASSESSMENT AND PLAN: 1. Multiple sclerosis exacerbation, seen by Neurology here in the emergency department. We will recheck an MRI, place on IV steroids. Consult Dr. Yarbrough, neurologist. 2. Acute encephalopathy. 3. Leukocytosis, possibly steroid induced ? Check ESR, CRP, lactic acid, and procalcitonin. 4. Seizure disorder. Check an EEG. KPL/MODL Oscar Ruvalcaba M.D. / [id number] History And Physical [address] [address] NAME: ISAI CLAYTON : 60 STATUS : ADM IN PAT#: [id number] AGE: 56 ADM/REG DATE : 11/11/16 MR#: [id number] REPORT SERV DATE: 11/12/16 DICTATED BY: OSCAR RUVALCABA DATE: 11/12/16 REPORT STATUS : Draft TRANSCRIBED BY: CARMINE DATE: 11/12/16 CC: MD Mamadou Quinones M.D. Ronald Yarbrough M.D., PhD.
--- NOTE | ~2016-11-11 | EEG ---
Electroencephalogram [id number] [place]. [address] NAME: ISAI CLAYTON : 60 STATUS : ADM IN PAT#: [id number] AGE: 56 ADM/REG DATE : 11/11/16 MR#: [id number] REPORT SERV DATE: 12/05/16 DICTATED BY: DATE: REPORT STATUS : Draft TRANSCRIBED BY: MODL DATE: 12/05/16 CLINICAL INDICATIONS: PML as well as encephalopathy. DESCRIPTION: This EEG was performed using 10/20 electrode placement system. During the EEG study, mild asymmetric background activity was noted with generalized slowing. Right hemisphere in the temporoparietal region worse compared to the left hemisphere. Predominant occipital rhythm is otherwise noted to be around 5 hertz. Photic stimulation was performed. No clear driving response was seen. Hyperventilation was not performed secondary to the patient's intubated status. During the EEG study, the patient achieved drowsy state. INTERPRETATION: This EEG study obtained during awake and drowsy state, may be considered abnormal secondary to presence of generalized slowing, worse in the right temporoparietal area compared to the left. Concerning for underlying structure abnormalities in the right hemisphere. Clinical correlation is otherwise recommended. No electrographic seizure was seen during today's EEG study. No clinical seizure was observed. [facility]/MODL Ranjan Smith MD / [id number] CC: Isabell Goldman M.D.
--- NOTE | ~2016-11-11 | IDS ---
Interim Discharge Summary [facility] [address] [place]. [address] NAME: ISAI CLAYTON : 60 STATUS : ADM IN PAT#: [id number] AGE: 56 ADM/REG DATE : 11/11/16 MR#: [id number] REPORT SERV DATE: 12/02/16 DICTATED BY: ISABELL GOLDMAN DATE: 12/02/16 REPORT STATUS : Draft TRANSCRIBED BY: MODL DATE: 12/02/16 ADMISSION DATE: 11/11/2016 DISCHARGE DATE: This interim discharge summary is serving for 11/26/2016 to 12/02/2016. PROBLEM LIST: 1. 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 Current management for PML for this patient is with maraviroc, Remeron, mefloquine, and Neupogen. Based on the recommendation from an expert in [place] who was contacted by Dr. Smith for the treatment. Her last dose of this treatment is coming and Dr. Yarbrough has been contacting this physician in [place] for recommendation. Currently, she is above the target of leukocytes number and Dr. Yarbrough is contacting this patient's plan to the expertise in [place]. 2. MS exacerbation was treated with three cycles of high-dose Solu-Medrol since admission of october. 3. Malnutrition status post J-tube and the patient is tolerating tube feeding. 4. History of tobacco abuse and chronic pain stable. 5. Clostridium difficile colitis finding. The patient has been found to have profuse diarrhea 1 day and C difficile specimen came back positive. After that, she was put on vancomycin. She is not having diarrhea at all. Today is her vancomycin day #10. 6. Very poor prognosis. CONSULTANTS: 1. Dr. Yanez. 2. Dr. Smith. 3. Dr. Anne. 4. Dr. Monroy. 5. Dr. [facility]. 6. Critical Care Management. HISTORY OF PRESENT ILLNESS: This is a 56-year-old, unfortunate female patient who suffered from multiple sclerosis for 15 years, had a recent admission from 10/27 to 11/07 and discharged to [facility]; however, a few days after the [facility] stay, she had to come back with worsening symptoms of encephalopathy. Please see dictated H and P done by Dr. Eli dated 11/12/2016. HOSPITAL COURSE: Please see dictated interim-summary dated 11/18/2016, by Dr. Goldman and interim discharge summary dated 11/24/2016, with [facility] nurse practitioner. Briefly, the patient was admitted to the hospital with encephalopathy with multiple sclerosis exacerbation. She finished high dose steroid course on this admission. Did not have any improvement. Meanwhile, she was decided to have the lumbar puncture to rule out PML. Unfortunately her ALYSA virus titer came back positive. Her final diagnosis is progressive Interim Discharge Summary [id number] [facility] [place] [address]. [address] NAME: ISAI CLAYTON : 60 STATUS : ADM IN PAT#: [id number] AGE: 56 ADM/REG DATE : 11/11/16 MR#: [id number] REPORT SERV DATE: 12/02/16 DICTATED BY: ISABELL GOLDMAN DATE: 12/02/16 REPORT STATUS : Draft TRANSCRIBED BY: MODHerson DATE: 12/02/16 multifocal and leukoencephalopathy due to ALYSA virus. After she was confirmed with ALYSA virus titer, the patient was seen by Dr. Anne. Also, she has been followed by the [facility]. Dr. Smith contacted one of the expertise of the PML in the state, recommended using 4 medications including Remeron, mefloquine, and maraviroc with Neupogen. When I returned on the service on 11/26/2016, she was found to be at the [facility] because she developed pneumothorax after the central line attempt for the plasmapheresis. Plasmapheresis was planned for a part of the PML treatment and Dr. Monroy tried to obtain the catheter. Subsequently she developed a pneumothorax after that, had a chest tube. After chest tube was removed, and she developed another pneumothorax on both lungs. That is why she is still has right-sided pigtail small chest tube. She remained in stable condition at that time last week, remained on tube feeding and continuing her medications and 11/28/2016, the night she developed a respiratory distress and failure with hypercapnia, so the patient went to CCU for supportive care. She was intubated for three days and extubated on Friday morning. Meanwhile she was checked with repeated MRI, repeated EEG, did not show any significant changes. Her prognosis remained still poor. After talking to the family and critical care management, she was decided to be a hospice care and the patient was transferred out of the unit to [address] [place] [address] Yarbrough has been contacting the other physician in [place] and got a recommendation that we need to continue more the treatment which is already scheduled and planned for a 14-day treatment. Therefore the direction of the care was changed. Discharge plan was changed. Hospice was canceled and the patient was remaining in supportive care to continue her planned 14 days of treatment. Right now, she is at [facility] and she is getting other supportive care including the oxygen and tube feeding. She got 1 unit of blood transfusion yesterday due to the low number, does not have any evidence of bleeding at all. She still remains in staying in the same mental status. She will finish the treatment on and reassess the patient's disposition at that time. I noticed her breathing has been slightly tachycardic, tachypneic, and also her white cells are above the goal that was made initially. Dr. Yarbrough is contacting the physician in [place] for any further recommendation regarding her medical treatment. Had more than an hour talking to the regarding her code status. As a result of the big discussion and acknowledging her prognosis, the patient has remained DNR/DNI; however, we can continue the nonrebreather BiPAP to support finish her treatment until . EKL/MODL Isabell Goldman M.D. / [id number] CC: Isabell Goldman M.D.
--- NOTE | ~2016-11-11 | EEG ---
Electroencephalogram [facility] [address] [facility] [place]. [address] NAME: ISAI CLAYTON : 60 STATUS : ADM IN PAT#: [id number] AGE: 56 ADM/REG DATE : 11/11/16 MR#: [id number] REPORT SERV DATE: 12/08/16 DICTATED BY: DATE: REPORT STATUS : Draft TRANSCRIBED BY: MODL DATE: 12/08/16 CLINICAL INDICATIONS: Encephalopathy, rhythmic movement. DESCRIPTION: This EEG was performed using 10/20 electrode placement system. During the EEG study, the patient was noted to have a minimal generalized slowing, predominant occipital rhythm of roughly 7 hertz. Photic stimulation was performed with no clear driving response. Hyperventilation was not performed secondary to patient's intubation status. The patient was noted to have a mild right hemisphere slowing during the EEG evaluation. Muscle artifact was also seen during the EEG study. No electrographic seizure was noted during the EEG study, rhythmic right foot movement was captured. The patient achieved drowsy state during the EEG study. INTERPRETATION: This EEG study obtained during awake and drowsy state may be considered mildly abnormal secondary to presence of mild right hemisphere slowing as well as mild generalized slowing. Concern for underlying right hemisphere structured lesion. Clinical rhythmic movement of right foot was noted during the EEG study without clear EEG correlation. No electrographic seizure was captured during the EEG study. Clinical correlation is recommended. [facility]/CARMINE Ranjan Smith MD / [id number] CC: Isabell Goldman M.D.
--- NOTE | ~2016-11-11 | IDS ---
Interim Discharge Summary [facility] [address] [place]. [address] NAME: ISAI CLAYTON : 60 STATUS : ADM IN PAT#: [id number] AGE: 56 ADM/REG DATE : 11/11/16 MR#: [id number] REPORT SERV DATE: 12/27/16 DICTATED BY: KALLIE MEDRANO IV DATE: 12/27/16 REPORT STATUS : Draft TRANSCRIBED BY: CARMINE DATE: 12/27/16 ADMISSION DATE: 11/11/2016 DISCHARGE DATE: The interim discharge summary is for the dates of 12/20/2016 through 12/27/2016. DIAGNOSES: Include, 1. Acute hypoxemic respiratory failure, still on the ventilator with daily CPAP pressure support weaning trials. 2. Multifocal leukoencephalopathy with virus infection. 3. Advanced multiple sclerosis. 4. Clostridium difficile colitis, status post treatment. 5. Hypothyroidism, on replacement therapy. 6. Seizure disorder with no seizure during this period of time. 7. Hypertension with adjustments of blood pressure medications. 8. Persistent hyperglycemia likely secondary to steroids with decreasing in the dose of Levemir. 9. Electrolyte abnormalities being corrected. CONSULTANTS: There were no new consultants though Infectious Disease and Neurology continued to follow the patient. PROCEDURES: The patient is scheduled to undergo a repeat MRI today. MEDICATIONS: Please review the MAR. HOSPITAL COURSE: The patient had been started on high dose steroids at 250 mg IV q.8 hours secondary to reconstitution syndrome for treatment for the virus with the multifocal leukoencephalopathy. The previous MRI had demonstrated significant edema. The patient did undergo daily weaning trials on the mechanical ventilator. There was no dramatic improvement in her mental status. She remained unresponsive with some posturing with any significant stimulation. We adjusted her Levemir for a decrease in her blood sugars as we came down on steroids. She had multiple electrolyte abnormalities, which were corrected on a daily basis. She complete therapy for C. diff colitis with a stool toxin titer negative on 12/24/2016. She remained on replacement therapy for her hypothyroidism. The Solu-Medrol was discontinued on the 12/25/2016 and transitioned to prednisone with plan on 60 mg daily for 1 week and 40 mg for 1 week. The patient is scheduled to undergo the MRI today as noted. The ongoing discussion about duration of therapy prior to discussion of withdrawal. Neurology is in conversation with the on a daily basis. [facility]/CARMINE Kallie Medrano IV, M.D. Interim Discharge Summary [address] [address] NAME: ISAI CLAYTON : 60 STATUS : ADM IN PAT#: [id number] AGE: 56 ADM/REG DATE : 11/11/16 MR#: [id number] REPORT SERV DATE: 12/27/16 DICTATED BY: KALLIE MEDRANO IV DATE: 12/27/16 REPORT STATUS : Draft TRANSCRIBED BY: CARMINE DATE: 12/27/16 / [id number] CC: Kallie Medrano IV, M.D.
--- NOTE | ~2016-11-11 | CN ---
Consultation Report [facility] [address] [place]. [address] NAME: ISAI CLAYTON : 60 STATUS : ADM IN PAT#: [id number] AGE: 56 ADM/REG DATE : 11/11/16 MR#: [id number] REPORT SERV DATE: 12/30/16 DICTATED BY: PRAVIN BARTLETT DATE: 12/30/16 REPORT STATUS : Draft TRANSCRIBED BY: MODHerson DATE: 12/30/16 PULMONARY CRITICAL CARE MEDICINE DOCUMENTATION DATE OF CONSULTATION: 12/30/2016 This documentation is an addendum to the patient's daily progress note for 12/30/2016. I was asked to see Mrs. Clayton at the request of Dr. Willard Pedroza who had rounded on her in the MICU earlier today to assist with the dressing, comfort care, transition on this chronically-ill lady with history of MS and PML. This morning, I had a meeting with Dr. Ronald Yarbrough, her primary neurologist, as well as Dr. Pedroza in the MICU, and was updated on her clinical status and lack of progress despite aggressive therapy for her PML. Subsequently, I met with the patient's , Julian Clayton, who was in the company of his children and other family members. He expressed that his goal was to transition Mrs. Clayton toward full-comfort focused care including removal of artificial ventilation and tube feedings to allow her a natural passing with the understanding that her condition is terminal and that she would not be interested in a prolonged recovery phase or further expectant waiting for her improvement on her current regimen. After communicating with both Dr. Pedroza, Dr. Yarbrough, and Mr. Clayton, decision was made to proceed with transition to comfort focused care and updated DNR was completed, and a full comfort care order set was added to her chart including symptom-triggered morphine and Ativan as well as glycopyrrolate for secretion management and discontinuation of tube feeds and mechanical ventilation. We will continue to follow Mrs. Clayton closely throughout the day and make further adjustments to her regimen as clinically warranted. SHADIA Pravin Bartlett MD / [id number] CC: George Medrano IV, M.D.
[2016-11-11 18:24] LABS: WBC (NOT ORDERED) (RFLEX) 0 (0-5)
[~2016-11-11 18:38] MED LIST changes: +B121000P IM; +D.O.S.100 MG PO; +HABIT21 TOP; +LEVOTHYROXIN88 MCG PO; +LIPITOR40 PO; +LOVENOX40 SC; +MIRALAX POWDER1 PKT PO; +NEUR300 PO; +NOVOLOG SC; +NYS500UDL PO; +P20 PO; +PROTONIX PO; +[UNRECOGNIZED DRUG - OTHER] IV
[2016-11-11] MEDS ORDERED: MSIMMR15 PO (18:39)
[2016-11-11] MEDS ORDERED: 8 HOUR650 MG PO (18:40)
[2016-11-11] MEDS ORDERED: ACETSUP650 PR (18:40)
[2016-11-11 18:41] LABS: ASCORBIC ACID (UR NOT ORDER) 40 (NEG); BILIRUBIN, URINE NEGATIVE (NEG); ER URINALYSIS TAT 0 Hrs 05 Mins; KETONE, URINE NEGATIVE (NEG); LEUKOCYTE ESTERASE(NOT OR NEG (NEG); NITRITE (URINE) NEG (NEG)
[2016-11-11] MEDS ORDERED: BISR PR (18:41)
[2016-11-11] MEDS ORDERED: KAOPECTATE262 MG/15 PO (18:42)
[2016-11-11] MEDS ORDERED: [UNRECOGNIZED DRUG - OTHER] PO (18:43)
[2016-11-11] MEDS ORDERED: GGDM5ML PO (18:44)
[2016-11-11] MEDS ORDERED: ENEMEEZ PR (18:44)
[2016-11-11] MEDS ORDERED: HYDROCORT AC30 MG PR (18:45)
[2016-11-11] MEDS ORDERED: GLYCERIN SUPPOSITORY PR (18:45)
[2016-11-11] MEDS ORDERED: MAGNESIUM CITRATE PO (18:46)
[2016-11-11] MEDS ORDERED: ENULOSE PO (18:46)
[2016-11-11] MEDS ORDERED: METPAKSF PO (18:47)
[2016-11-11] MEDS ORDERED: ZOFRAN4 PO (18:47)
[2016-11-11] MEDS ORDERED: FLEETS ENEMA PR (18:48)
[2016-11-11 18:49] LABS: INTERNATIONAL NORMAL RATI 1.1 UNITS (-); PARTIAL THROMBO TIME 23.6 SEC (22.5-37.2)
[2016-11-11 18:54] LABS: BASOPHILS ABSOLUTE 0.18 10/3/uL (0.0-0.16); EOSINOPHILS 0.1 %; EOSINOPHILS ABSOLUTE 0.01 10/3/uL (0.0-0.53); HEMATOCRIT 37.6 % (36.0-48.0); HEMOGLOBIN 12.5 g/dL (12.0-16.0); LYMPHOCYTES 15.6 %; LYMPHOCYTES ABSOLUTE 2.76 10/3/uL (0.67-4.30); MEAN CORPUSCULAR HEMOGLOB 29.7 pg (26.0-34.0); MONOCYTES 4.6 %; MONOCYTES ABSOLUTE 0.82 10/3/uL (0.21-1.20); NEUTROPHILS 69.7 %; NEUTROPHILS ABSOLUTE 12.33 10/3/uL (2.02-8.40); NUCLEATED RED BLOOD CELLS 2.3 /100WBC (0-0); RBC DISTRIBUTION WIDTH 15.1 % (12.0-16.0); RED CELL COUNT 4.21 10/6/uL (4.0-5.6); WHITE BLOOD CELLS 17.7 10/3/uL (4.5-10.5)
[2016-11-11 18:55] LABS: IMMATURE GRANULOCYTES ABSOLUTE 1.59 10/3/uL (0.0-0.11); MANUAL DIFF NO %; MEAN CORPUS HGB CONC 33.2 g/dL (32.0-36.0); MEAN CORPUSCULAR VOLUME 89.3 fL (80-100); PLATELET COUNT 135 10/3/uL (150-400)
[2016-11-11 18:59] LABS: ALBUMIN 3.5 G/DL (3.5-5.0); CALCIUM, SERUM 8.7 MG/DL (8.5-10.4); CHEST PAIN PROFILE TAT 0 Hrs 22 Mins; CHLORIDE, SERUM 100 MMOL/L (96-112); CREATININE 0.96 MG/DL (0.55-1.02); DIRECT BILIRUBIN 0.2 MG/DL (0.0-0.4); GFR AFRICAN AMERICAN 77 ML/MIN (>=60); GFR NON AFRICAN AMERICAN 66 ML/MIN (>=60); INDIRECT BILIRUBIN(NOT ORDER) 0.5 MG/DL (0.1-0.9); SGOT(AST) 20 U/L (5-40); SGPT(ALT) 78 U/L (5-65); SODIUM, SERUM 136 MMOL/L (135-148); TOTAL BILIRUBIN 0.7 MG/DL (0-1.2); TOTAL PROTEIN 6.4 G/DL (6.0-8.5); TROPONIN I <0.02 NG/ML (<0.05)
[2016-11-11 19:00] LABS: ALKALINE PHOSPHATASE 65 U/L (45-117); BUN (BLOOD UREA NITROGEN) 28 MG/DL (6-23); CO2 (CARBON DIOXIDE) 25 MMOL/L (24-34); GLUCOSE, SERUM 145 MG/DL (60-99); POTASSIUM, SERUM 4.7 MMOL/L (3.5-5.3)
[2016-11-11 19:28] LABS: BAND NEUTROPHILS 3 %; EOSINOPHILS 1 %; EOSINOPHILS ABSOLUTE (CALC) 0.18 10/3/uL (0.0-0.53); ER DIFF TAT 0 Hrs 51 Mins; IMMATURE GRANS ABSOLUTE (CALC) 1.24 10/3/uL (0.0-0.11); IMMATURE MONONUCLEAR 1 % (0); LYMPHOCYTES 17 %; LYMPHOCYTES ABSOLUTE (CALC) 3.01 10/3/uL (0.67-4.30); METAMYELOCYTES 7 %; MONOCYTES 3 %; MONOCYTES ABSOLUTE (CALC) 0.53 10/3/uL (0.21-1.20); NEUTROPHILS ABSOLUTE (CALC) 12.57 10/3/uL (2.02-8.40); NUCLEATED RED BLOOD CELLS 3 /100WBC (0); SEGMENTED NEUTROPHIL (0) 68 %; TOTAL NUCLEATED CELLS 100
[2016-11-11 19:32] LABS: RBC MORPHOLOGY NORM (NORMAL)
[2016-11-11 19:33] LABS: PLATELET ESTIMATE SLT DEC (ADEQUATE)
[2016-11-12 06:57] LABS: HEMATOCRIT 37.6 % (36.0-48.0); HEMOGLOBIN 12.8 g/dL (12.0-16.0); MEAN CORPUSCULAR VOLUME 88.3 fL (80-100); MEAN PLATELET VOLUME 9.3 fL (9.2-13.0); PLATELET COUNT 131 10/3/uL (150-400); RBC DISTRIBUTION WIDTH 15.1 % (12.0-16.0); RED CELL COUNT 4.26 10/6/uL (4.0-5.6)
[2016-11-12 07:02] LABS: MANUAL DIFF YES %
[2016-11-12 07:03] LABS: INTERNATIONAL NORMAL RATI 1.1 UNITS (-); PROTIME (NOT ORD) 13.6 SEC (12.0-14.5)
[2016-11-12 07:26] LABS: ALBUMIN 3.4 G/DL (3.5-5.0); ALKALINE PHOSPHATASE 62 U/L (45-117); CALCIUM, SERUM 8.6 MG/DL (8.5-10.4); CHLORIDE, SERUM 104 MMOL/L (96-112); CO2 (CARBON DIOXIDE) 23 MMOL/L (24-34); CREATININE 0.86 MG/DL (0.55-1.02); GFR AFRICAN AMERICAN 88 ML/MIN (>=60); GFR NON AFRICAN AMERICAN 76 ML/MIN (>=60); GLUCOSE, SERUM 128 MG/DL (60-99); POTASSIUM, SERUM 4.8 MMOL/L (3.5-5.3); SGOT(AST) 24 U/L (5-40); SGPT(ALT) 70 U/L (5-65); SODIUM, SERUM 138 MMOL/L (135-148); TOTAL BILIRUBIN 0.9 MG/DL (0-1.2); TOTAL PROTEIN 6.1 G/DL (6.0-8.5); TROPONIN I <0.02 NG/ML (<0.05)
[2016-11-12 07:27] LABS: A/G RATIO 1.3 (0.7-1.9); BUN (BLOOD UREA NITROGEN) 24 MG/DL (6-23); GLOBULIN 2.7 G/DL (2.5-4.1); ULTRASENSITIVE TSH 0.033 MCIU/ML (0.358-3.740)
[2016-11-12 07:47] LABS: BAND NEUTROPHILS 4 %; IMMATURE GRANS ABSOLUTE (CALC) 1.19 10/3/uL (0.0-0.11); LYMPHOCYTES 16 %; LYMPHOCYTES ABSOLUTE (CALC) 2.72 10/3/uL (0.67-4.30); METAMYELOCYTES 6 %; MONOCYTES 4 %; MONOCYTES ABSOLUTE (CALC) 0.68 10/3/uL (0.21-1.20); MYELOCYTES 1 %; NEUTROPHILS ABSOLUTE (CALC) 12.41 10/3/uL (2.02-8.40); PLATELET ESTIMATE SLT DEC (ADEQUATE); RBC MORPHOLOGY NORM (NORMAL); SEGMENTED NEUTROPHIL (0) 69 %; TOTAL NUCLEATED CELLS 100
[2016-11-12 07:58] LABS: B NATRIURETIC PEPTIDE (BNP) 105.8 PG/ML (< 100.0)
[2016-11-12 08:28] LABS: PROCALCITONIN <0.05 ng/mL (<0.5)
[2016-11-13 07:03] LABS: HEMATOCRIT 34.5 % (36.0-48.0); HEMOGLOBIN 11.9 g/dL (12.0-16.0); MANUAL DIFF YES %; MEAN CORPUS HGB CONC 34.5 g/dL (32.0-36.0); MEAN CORPUSCULAR HEMOGLOB 29.7 pg (26.0-34.0); MEAN PLATELET VOLUME 9.2 fL (9.2-13.0); NUCLEATED RED BLOOD CELLS 3.6 /100WBC (0-0); PLATELET COUNT 124 10/3/uL (150-400); RBC DISTRIBUTION WIDTH 15.3 % (12.0-16.0); RED CELL COUNT 4.01 10/6/uL (4.0-5.6); WHITE BLOOD CELLS 14.4 10/3/uL (4.5-10.5)
[2016-11-13 07:07] LABS: BUN (BLOOD UREA NITROGEN) 27 MG/DL (6-23); CALCIUM, SERUM 8.4 MG/DL (8.5-10.4); CHLORIDE, SERUM 104 MMOL/L (96-112); CO2 (CARBON DIOXIDE) 25 MMOL/L (24-34); CREATININE 1.02 MG/DL (0.55-1.02); GFR AFRICAN AMERICAN 71 ML/MIN (>=60); GFR NON AFRICAN AMERICAN 61 ML/MIN (>=60); SODIUM, SERUM 137 MMOL/L (135-148)
[2016-11-13 07:08] LABS: GLUCOSE, SERUM 202 MG/DL (60-99)
[2016-11-13 08:32] LABS: BAND NEUTROPHILS 2 %; IMMATURE GRANS ABSOLUTE (CALC) 0.29 10/3/uL (0.0-0.11); LYMPHOCYTES 19 %; LYMPHOCYTES ABSOLUTE (CALC) 2.74 10/3/uL (0.67-4.30); METAMYELOCYTES 1 %; MONOCYTES 5 %; MONOCYTES ABSOLUTE (CALC) 0.72 10/3/uL (0.21-1.20); MYELOCYTES 1 %; NEUTROPHILS ABSOLUTE (CALC) 10.66 10/3/uL (2.02-8.40); PLATELET ESTIMATE SLT DEC (ADEQUATE); SEGMENTED NEUTROPHIL (0) 72 %; TOTAL NUCLEATED CELLS 100
[2016-11-13 08:33] LABS: RBC MORPHOLOGY NORM (NORMAL)
[2016-11-13 16:24] LABS: C-REACTIVE PROTEIN < 2.9 MG/L (<8.0); RHEUMATOID FACTOR QUANT < 10 IU/ML (0-15)
[2016-11-14 10:06] LABS: CSF APPEARANCE (NOT ORD) BLOODY (CLEAR); CSF COLOR (NOT ORD) PINK (COLORLESS)
[2016-11-14 10:07] LABS: CSF WBC (NOT ORD) 289 /uL (0-10)
[2016-11-14 10:08] LABS: CSF RBC (NOT ORD) 73000 MM3 (NO REFERENCE); TOTAL PROTEIN, CSF 102.1 MG/DL (15-45)
[2016-11-14 10:09] LABS: ANTI SS-A NEGATIVE (NEGATIVE); ANTI SS-B NEGATIVE (NEGATIVE)
[2016-11-14 10:13] LABS: CSF APPEARANCE (NOT ORD) BLOODY (CLEAR); CSF COLOR (NOT ORD) RED (COLORLESS); CSF RBC (NOT ORD) 130000 MM3 (NO REFERENCE); CSF WBC (NOT ORD) 174 /uL (0-10)
[2016-11-14 10:22] LABS: CSF XANTHROCHROMIA NEG (NEG)
[2016-11-14 10:43] LABS: CSF BASO 0 % (NO REF RANGE); CSF EOS 1 % (0-1); CSF LYMPH (NOT ORD) 8 % (28-96); CSF MONO 5 % (16-56); CSF SEGS (NOT ORD) 86 % (0-7)
[2016-11-14 10:48] LABS: CSF BASO 0 % (NO REF RANGE); CSF EOS 1 % (0-1); CSF LYMPH (NOT ORD) 27 % (28-96); CSF MONO 12 % (16-56); CSF SEGS (NOT ORD) 60 % (0-7)
[2016-11-15 10:57] LABS: ANA TITER <1:40 TITER
[2016-11-15 14:16] LABS: MEAN CORPUSCULAR HEMOGLOB 29.4 pg (26.0-34.0); MEAN CORPUSCULAR VOLUME 86.5 fL (80-100); MEAN PLATELET VOLUME 9.5 fL (9.2-13.0); NUCLEATED RED BLOOD CELLS 3.2 /100WBC (0-0); PLATELET COUNT 124 10/3/uL (150-400); RBC DISTRIBUTION WIDTH 15.8 % (12.0-16.0); WHITE BLOOD CELLS 15.4 10/3/uL (4.5-10.5)
[2016-11-15 14:17] LABS: HEMATOCRIT 44.7 % (36.0-48.0); HEMOGLOBIN 15.2 g/dL (12.0-16.0); MANUAL DIFF YES %; RED CELL COUNT 5.17 10/6/uL (4.0-5.6)
[2016-11-15 14:25] LABS: A/G RATIO 1.3 (0.7-1.9); ALBUMIN 4.3 G/DL (3.5-5.0); ALKALINE PHOSPHATASE 73 U/L (45-117); BUN (BLOOD UREA NITROGEN) 29 MG/DL (6-23); CALCIUM, SERUM 9.6 MG/DL (8.5-10.4); CHLORIDE, SERUM 100 MMOL/L (96-112); CO2 (CARBON DIOXIDE) 22 MMOL/L (24-34); CREATININE 0.85 MG/DL (0.55-1.02); GFR AFRICAN AMERICAN 89 ML/MIN (>=60); GFR NON AFRICAN AMERICAN 77 ML/MIN (>=60); GLOBULIN 3.3 G/DL (2.5-4.1); GLUCOSE, SERUM 116 MG/DL (60-99); POTASSIUM, SERUM 3.4 MMOL/L (3.5-5.3); SGOT(AST) 23 U/L (5-40); SGPT(ALT) 67 U/L (5-65); SODIUM, SERUM 137 MMOL/L (135-148); TOTAL BILIRUBIN 2.2 MG/DL (0-1.2); TOTAL PROTEIN 7.6 G/DL (6.0-8.5)
[2016-11-15 14:35] LABS: BAND NEUTROPHILS 2 %; LYMPHOCYTES 21 %; LYMPHOCYTES ABSOLUTE (CALC) 3.23 10/3/uL (0.67-4.30); MONOCYTES 2 %; MONOCYTES ABSOLUTE (CALC) 0.31 10/3/uL (0.21-1.20); NEUTROPHILS ABSOLUTE (CALC) 11.86 10/3/uL (2.02-8.40); PLATELET ESTIMATE SLT DEC (ADEQUATE); RBC MORPHOLOGY NORM (NORMAL); SEGMENTED NEUTROPHIL (0) 75 %; TOTAL NUCLEATED CELLS 100
[2016-11-16 06:34] LABS: HEMOGLOBIN 13.7 g/dL (12.0-16.0); MEAN CORPUS HGB CONC 34.2 g/dL (32.0-36.0); MEAN CORPUSCULAR HEMOGLOB 29.7 pg (26.0-34.0); MEAN CORPUSCULAR VOLUME 86.8 fL (80-100); MEAN PLATELET VOLUME 9.4 fL (9.2-13.0); NUCLEATED RED BLOOD CELLS 4.1 /100WBC (0-0); PLATELET COUNT 121 10/3/uL (150-400); RED CELL COUNT 4.62 10/6/uL (4.0-5.6); WHITE BLOOD CELLS 9.9 10/3/uL (4.5-10.5)
[2016-11-16 06:35] LABS: HEMATOCRIT 40.1 % (36.0-48.0); MANUAL DIFF YES %
[2016-11-16 06:42] LABS: CALCIUM, SERUM 8.8 MG/DL (8.5-10.4); CHLORIDE, SERUM 104 MMOL/L (96-112); CO2 (CARBON DIOXIDE) 22 MMOL/L (24-34); GFR AFRICAN AMERICAN 73 ML/MIN (>=60); GFR NON AFRICAN AMERICAN 63 ML/MIN (>=60); POTASSIUM, SERUM 3.8 MMOL/L (3.5-5.3); SODIUM, SERUM 141 MMOL/L (135-148)
[2016-11-16 06:45] LABS: BUN (BLOOD UREA NITROGEN) 34 MG/DL (6-23); GLUCOSE, SERUM 219 MG/DL (60-99)
[2016-11-16 07:48] LABS: BAND NEUTROPHILS 2 %; LYMPHOCYTES 9 %; LYMPHOCYTES ABSOLUTE (CALC) 0.89 10/3/uL (0.67-4.30); METAMYELOCYTES 3 %; MONOCYTES 3 %; NEUTROPHILS ABSOLUTE (CALC) 8.42 10/3/uL (2.02-8.40); SEGMENTED NEUTROPHIL (0) 83 %; TOTAL NUCLEATED CELLS 100
[2016-11-16 07:49] LABS: PLATELET ESTIMATE SLT DEC (ADEQUATE); RBC MORPHOLOGY NORM (NORMAL)
[2016-11-17 06:44] LABS: BUN (BLOOD UREA NITROGEN) 32 MG/DL (6-23); CALCIUM, SERUM 8.8 MG/DL (8.5-10.4); CHLORIDE, SERUM 110 MMOL/L (96-112); CO2 (CARBON DIOXIDE) 20 MMOL/L (24-34); CREATININE 0.83 MG/DL (0.55-1.02); GFR AFRICAN AMERICAN 91 ML/MIN (>=60); GFR NON AFRICAN AMERICAN 79 ML/MIN (>=60); GLUCOSE, SERUM 196 MG/DL (60-99); POTASSIUM, SERUM 3.8 MMOL/L (3.5-5.3); SODIUM, SERUM 143 MMOL/L (135-148)
[2016-11-18 04:35] LABS: BASOPHILS 0.1 %; BASOPHILS ABSOLUTE 0.01 10/3/uL (0.0-0.16); EOSINOPHILS 0 %; IMMATURE GRANULOCYTES 1.7 %; IMMATURE GRANULOCYTES ABSOLUTE 0.12 10/3/uL (0.0-0.11); LYMPHOCYTES 15.5 %; LYMPHOCYTES ABSOLUTE 1.08 10/3/uL (0.67-4.30); MEAN CORPUS HGB CONC 34.2 g/dL (32.0-36.0); MEAN CORPUSCULAR HEMOGLOB 30.3 pg (26.0-34.0); MEAN CORPUSCULAR VOLUME 88.7 fL (80-100); MONOCYTES 4.6 %; MONOCYTES ABSOLUTE 0.32 10/3/uL (0.21-1.20); NEUTROPHILS 78.1 %; NEUTROPHILS ABSOLUTE 5.46 10/3/uL (2.02-8.40); PLATELET COUNT 87 10/3/uL (150-400); RBC DISTRIBUTION WIDTH 15.9 % (12.0-16.0)
[2016-11-18 04:37] LABS: HEMATOCRIT 32.2 % (36.0-48.0); MANUAL DIFF NO %; RED CELL COUNT 3.63 10/6/uL (4.0-5.6)
[2016-11-18 04:43] LABS: INTERNATIONAL NORMAL RATI 1.2 UNITS (-); PROTIME (NOT ORD) 15.5 SEC (12.0-14.5)
[2016-11-18 04:54] LABS: BUN (BLOOD UREA NITROGEN) 39 MG/DL (6-23); CALCIUM, SERUM 8.5 MG/DL (8.5-10.4); CHLORIDE, SERUM 110 MMOL/L (96-112); CO2 (CARBON DIOXIDE) 21 MMOL/L (24-34); CREATININE 0.79 MG/DL (0.55-1.02); GFR AFRICAN AMERICAN 97 ML/MIN (>=60); GFR NON AFRICAN AMERICAN 84 ML/MIN (>=60); GLUCOSE, SERUM 190 MG/DL (60-99); PREALBUMIN 45.9 MG/DL (17.0-43.0); SODIUM, SERUM 143 MMOL/L (135-148)
[2016-11-18 05:19] LABS: PARTIAL THROMBO TIME 22.4 SEC (22.5-37.2)
[2016-11-18 06:55] LABS: IGG INDEX 0.64 (0.25-0.75)
[2016-11-18 19:07] LABS: HSV DNA TYPE 1 Not Detected (NOTDET); HSV DNA TYPE 2 Not Detected (NOTDET); SOURCE Serum (())
[2016-11-19 02:26] LABS: JC VIRUS DETECTED (NOTDET)
[2016-11-19 06:09] LABS: M.TB COMP PCR NON RESP NOT DETECTED (NOTDET)
[2016-11-19 06:33] LABS: BASOPHILS 0.2 %; BASOPHILS ABSOLUTE 0.02 10/3/uL (0.0-0.16); EOSINOPHILS 0.1 %; EOSINOPHILS ABSOLUTE 0.01 10/3/uL (0.0-0.53); HEMATOCRIT 34.6 % (36.0-48.0); HEMOGLOBIN 11.7 g/dL (12.0-16.0); IMMATURE GRANULOCYTES 1.4 %; IMMATURE GRANULOCYTES ABSOLUTE 0.17 10/3/uL (0.0-0.11); LYMPHOCYTES 17.8 %; LYMPHOCYTES ABSOLUTE 2.13 10/3/uL (0.67-4.30); MEAN CORPUS HGB CONC 33.8 g/dL (32.0-36.0); MEAN CORPUSCULAR HEMOGLOB 30.2 pg (26.0-34.0); MEAN CORPUSCULAR VOLUME 89.4 fL (80-100); MEAN PLATELET VOLUME 9.1 fL (9.2-13.0); MONOCYTES 4.5 %; MONOCYTES ABSOLUTE 0.54 10/3/uL (0.21-1.20); NEUTROPHILS ABSOLUTE 9.09 10/3/uL (2.02-8.40); PLATELET COUNT 85 10/3/uL (150-400); RBC DISTRIBUTION WIDTH 16.3 % (12.0-16.0); RED CELL COUNT 3.87 10/6/uL (4.0-5.6)
[2016-11-19 06:35] LABS: MANUAL DIFF NO %
[2016-11-19 06:41] LABS: BUN (BLOOD UREA NITROGEN) 31 MG/DL (6-23); CALCIUM, SERUM 8.5 MG/DL (8.5-10.4); CHLORIDE, SERUM 107 MMOL/L (96-112); CO2 (CARBON DIOXIDE) 23 MMOL/L (24-34); CREATININE 0.72 MG/DL (0.55-1.02); GFR AFRICAN AMERICAN 109 ML/MIN (>=60); GFR NON AFRICAN AMERICAN 94 ML/MIN (>=60); GLUCOSE, SERUM 152 MG/DL (60-99); POTASSIUM, SERUM 3.9 MMOL/L (3.5-5.3); SODIUM, SERUM 139 MMOL/L (135-148)
[2016-11-19 11:10] LABS: ALBUMIN INDEX 19.3 ratio (0.0-9.0); CSF IGG SYNTHESIS RATE 17.8 mg/d (0.0-8.0); CSF IGG/ALBUMIN RATIO 0.11 ratio (0.09-0.25); CSF OLIGOCLONAL BANDS Negative (NEG); CSF OLIGOCLONAL BANDS NUMBER 0 Bands (0-1); IGG INDEX 0.87 ratio (0.28-0.66); IMMUNOGLOBULIN G, SERUM 457 mg/dL (768-1632)
[2016-11-20 06:50] LABS: BASOPHILS 0 %; EOSINOPHILS 0.1 %; EOSINOPHILS ABSOLUTE 0.01 10/3/uL (0.0-0.53); HEMATOCRIT 32.3 % (36.0-48.0); IMMATURE GRANULOCYTES 0.8 %; IMMATURE GRANULOCYTES ABSOLUTE 0.09 10/3/uL (0.0-0.11); LYMPHOCYTES 12.8 %; LYMPHOCYTES ABSOLUTE 1.48 10/3/uL (0.67-4.30); MANUAL DIFF NO %; MEAN CORPUS HGB CONC 34.1 g/dL (32.0-36.0); MEAN CORPUSCULAR HEMOGLOB 30.1 pg (26.0-34.0); MEAN CORPUSCULAR VOLUME 88.3 fL (80-100); MEAN PLATELET VOLUME 9.5 fL (9.2-13.0); MONOCYTES 3.4 %; MONOCYTES ABSOLUTE 0.39 10/3/uL (0.21-1.20); NEUTROPHILS 82.9 %; NEUTROPHILS ABSOLUTE 9.62 10/3/uL (2.02-8.40); PLATELET COUNT 72 10/3/uL (150-400); RBC DISTRIBUTION WIDTH 16.3 % (12.0-16.0); RED CELL COUNT 3.66 10/6/uL (4.0-5.6); WHITE BLOOD CELLS 11.6 10/3/uL (4.5-10.5)
[2016-11-20 06:57] LABS: INTERNATIONAL NORMAL RATI 1.2 UNITS (-); PROTIME (NOT ORD) 15.3 SEC (12.0-14.5)
[2016-11-20 07:06] LABS: CALCIUM, SERUM 8.5 MG/DL (8.5-10.4); CHLORIDE, SERUM 102 MMOL/L (96-112); CO2 (CARBON DIOXIDE) 25 MMOL/L (24-34); CREATININE 0.56 MG/DL (0.55-1.02); GFR AFRICAN AMERICAN 121 ML/MIN (>=60); GFR NON AFRICAN AMERICAN 104 ML/MIN (>=60); GLUCOSE, SERUM 176 MG/DL (60-99); SGOT(AST) 10 U/L (5-40); SGPT(ALT) 21 U/L (5-65); SODIUM, SERUM 138 MMOL/L (135-148)
[2016-11-20 07:07] LABS: A/G RATIO 0.9 (0.7-1.9); ALBUMIN 2.7 G/DL (3.5-5.0); ALKALINE PHOSPHATASE 47 U/L (45-117); BUN (BLOOD UREA NITROGEN) 26 MG/DL (6-23); TOTAL BILIRUBIN 1.5 MG/DL (0-1.2); TOTAL PROTEIN 5.7 G/DL (6.0-8.5)
[2016-11-20 07:12] LABS: ALBUMIN 2.8 G/DL (3.5-5.0); PHOSPHORUS, SERUM 1.3 MG/DL (2.5-4.5)
[2016-11-20 07:21] LABS: PLATELET ESTIMATE DEC (ADEQUATE); POLYCHROMASIA 1+ (2-5/OIF) (0-1/OIF)
[2016-11-21 05:48] LABS: HEMOGLOBIN 9.4 g/dL (12.0-16.0); MEAN CORPUS HGB CONC 33.6 g/dL (32.0-36.0); MEAN CORPUSCULAR HEMOGLOB 29.9 pg (26.0-34.0); MEAN CORPUSCULAR VOLUME 89.2 fL (80-100); MEAN PLATELET VOLUME 10.1 fL (9.2-13.0); PLATELET COUNT 71 10/3/uL (150-400); RBC DISTRIBUTION WIDTH 16.7 % (12.0-16.0); RED CELL COUNT 3.14 10/6/uL (4.0-5.6); WHITE BLOOD CELLS 10.5 10/3/uL (4.5-10.5)
[2016-11-21 05:50] LABS: MANUAL DIFF YES %
[2016-11-21 05:53] LABS: INTERNATIONAL NORMAL RATI 1.3 UNITS (-); PARTIAL THROMBO TIME 29.1 SEC (22.5-37.2); PROTIME (NOT ORD) 16.3 SEC (12.0-14.5)
[2016-11-21 06:01] LABS: A/G RATIO 0.9 (0.7-1.9); ALBUMIN 2.4 G/DL (3.5-5.0); ALKALINE PHOSPHATASE 52 U/L (45-117); CALCIUM, SERUM 8.4 MG/DL (8.5-10.4); CHLORIDE, SERUM 102 MMOL/L (96-112); CO2 (CARBON DIOXIDE) 23 MMOL/L (24-34); CREATININE 0.44 MG/DL (0.55-1.02); GFR AFRICAN AMERICAN 131 ML/MIN (>=60); GFR NON AFRICAN AMERICAN 113 ML/MIN (>=60); GLOBULIN 2.8 G/DL (2.5-4.1); POTASSIUM, SERUM 3.8 MMOL/L (3.5-5.3); SGOT(AST) 18 U/L (5-40); SGPT(ALT) 21 U/L (5-65); SODIUM, SERUM 136 MMOL/L (135-148); TOTAL BILIRUBIN 1.2 MG/DL (0-1.2); TOTAL PROTEIN 5.2 G/DL (6.0-8.5)
[2016-11-21 06:03] LABS: BUN (BLOOD UREA NITROGEN) 16 MG/DL (6-23); GLUCOSE, SERUM 107 MG/DL (60-99)
[2016-11-21 06:56] LABS: BAND NEUTROPHILS 1 %; IMMATURE GRANS ABSOLUTE (CALC) 0.11 10/3/uL (0.0-0.11); LYMPHOCYTES 13 %; LYMPHOCYTES ABSOLUTE (CALC) 1.37 10/3/uL (0.67-4.30); METAMYELOCYTES 1 %; NEUTROPHILS ABSOLUTE (CALC) 9.03 10/3/uL (2.02-8.40); SEGMENTED NEUTROPHIL (0) 85 %; TOTAL NUCLEATED CELLS 100
[2016-11-21 06:57] LABS: PLATELET ESTIMATE DEC (ADEQUATE); RBC MORPHOLOGY NORM (NORMAL); TOXIC GRANULATION 1+
[2016-11-22 05:12] LABS: HEMATOCRIT 26.8 % (36.0-48.0); MEAN CORPUS HGB CONC 33.6 g/dL (32.0-36.0); MEAN CORPUSCULAR HEMOGLOB 30.2 pg (26.0-34.0); MEAN CORPUSCULAR VOLUME 89.9 fL (80-100); MEAN PLATELET VOLUME 9.2 fL (9.2-13.0); PLATELET COUNT 71 10/3/uL (150-400); RBC DISTRIBUTION WIDTH 16.7 % (12.0-16.0); RED CELL COUNT 2.98 10/6/uL (4.0-5.6)
[2016-11-22 05:17] LABS: MANUAL DIFF YES %
[2016-11-22 05:28] LABS: CALCIUM, SERUM 7.7 MG/DL (8.5-10.4); CHLORIDE, SERUM 109 MMOL/L (96-112); CO2 (CARBON DIOXIDE) 20 MMOL/L (24-34); CREATININE 0.54 MG/DL (0.55-1.02); GFR AFRICAN AMERICAN 122 ML/MIN (>=60); GFR NON AFRICAN AMERICAN 105 ML/MIN (>=60); POTASSIUM, SERUM 4.1 MMOL/L (3.5-5.3); SODIUM, SERUM 139 MMOL/L (135-148)
[2016-11-22 05:34] LABS: BUN (BLOOD UREA NITROGEN) 21 MG/DL (6-23); GLUCOSE, SERUM 138 MG/DL (60-99)
[2016-11-22 07:04] LABS: ANISOCYTOSIS 1+ (5-10/OIF) (0-5/OIF); BAND NEUTROPHILS 9 %; LYMPHOCYTES 15 %; LYMPHOCYTES ABSOLUTE (CALC) 1.35 10/3/uL (0.67-4.30); MONOCYTES 3 %; MONOCYTES ABSOLUTE (CALC) 0.27 10/3/uL (0.21-1.20); NEUTROPHILS ABSOLUTE (CALC) 7.38 10/3/uL (2.02-8.40); PLATELET ESTIMATE DEC (ADEQUATE); SEGMENTED NEUTROPHIL (0) 73 %; TOTAL NUCLEATED CELLS 100
[2016-11-23 05:38] LABS: HEMATOCRIT 28.9 % (36.0-48.0); HEMOGLOBIN 9.6 g/dL (12.0-16.0); MEAN CORPUS HGB CONC 33.2 g/dL (32.0-36.0); MEAN CORPUSCULAR HEMOGLOB 29.9 pg (26.0-34.0); MEAN PLATELET VOLUME 9.5 fL (9.2-13.0); PLATELET COUNT 84 10/3/uL (150-400); RBC DISTRIBUTION WIDTH 16.7 % (12.0-16.0); RED CELL COUNT 3.21 10/6/uL (4.0-5.6)
[2016-11-23 05:39] LABS: MANUAL DIFF YES %; WHITE BLOOD CELLS 13.5 10/3/uL (4.5-10.5)
[2016-11-23 05:49] LABS: BUN (BLOOD UREA NITROGEN) 17 MG/DL (6-23); CALCIUM, SERUM 7.9 MG/DL (8.5-10.4); CHLORIDE, SERUM 108 MMOL/L (96-112); CO2 (CARBON DIOXIDE) 23 MMOL/L (24-34); CREATININE 0.44 MG/DL (0.55-1.02); GFR AFRICAN AMERICAN 131 ML/MIN (>=60); GFR NON AFRICAN AMERICAN 113 ML/MIN (>=60); GLUCOSE, SERUM 124 MG/DL (60-99); POTASSIUM, SERUM 3.9 MMOL/L (3.5-5.3); SODIUM, SERUM 142 MMOL/L (135-148)
[2016-11-23 06:31] LABS: BAND NEUTROPHILS 10 %; IMMATURE GRANS ABSOLUTE (CALC) 0.14 10/3/uL (0.0-0.11); LYMPHOCYTES 22 %; LYMPHOCYTES ABSOLUTE (CALC) 2.97 10/3/uL (0.67-4.30); METAMYELOCYTES 1 %; MONOCYTES 4 %; MONOCYTES ABSOLUTE (CALC) 0.54 10/3/uL (0.21-1.20); NEUTROPHILS ABSOLUTE (CALC) 9.86 10/3/uL (2.02-8.40); SEGMENTED NEUTROPHIL (0) 63 %; TOTAL NUCLEATED CELLS 100
[2016-11-23 06:34] LABS: PLATELET ESTIMATE DEC (ADEQUATE)
[2016-11-23 06:39] LABS: RBC MORPHOLOGY NORM (NORMAL)
[2016-11-24 04:56] LABS: HEMATOCRIT 26.1 % (36.0-48.0); HEMOGLOBIN 8.7 g/dL (12.0-16.0); MEAN CORPUS HGB CONC 33.3 g/dL (32.0-36.0); MEAN CORPUSCULAR HEMOGLOB 29.7 pg (26.0-34.0); MEAN CORPUSCULAR VOLUME 89.1 fL (80-100); MEAN PLATELET VOLUME 9.5 fL (9.2-13.0); PLATELET COUNT 101 10/3/uL (150-400); RBC DISTRIBUTION WIDTH 16.8 % (12.0-16.0); RED CELL COUNT 2.93 10/6/uL (4.0-5.6); WHITE BLOOD CELLS 9.8 10/3/uL (4.5-10.5)
[2016-11-24 04:57] LABS: MANUAL DIFF YES %
[2016-11-24 05:16] LABS: BUN (BLOOD UREA NITROGEN) 19 MG/DL (6-23); CALCIUM, SERUM 8.1 MG/DL (8.5-10.4); CHLORIDE, SERUM 104 MMOL/L (96-112); CO2 (CARBON DIOXIDE) 23 MMOL/L (24-34); CREATININE 0.44 MG/DL (0.55-1.02); GFR AFRICAN AMERICAN 131 ML/MIN (>=60); GFR NON AFRICAN AMERICAN 113 ML/MIN (>=60); GLUCOSE, SERUM 117 MG/DL (60-99); SODIUM, SERUM 139 MMOL/L (135-148)
[2016-11-24 05:29] LABS: PHOSPHORUS, SERUM 1.7 MG/DL (2.5-4.5)
[2016-11-24 05:30] LABS: ANISOCYTOSIS 1+ (5-10/OIF) (0-5/OIF); BAND NEUTROPHILS 14 %; LYMPHOCYTES 10 %; LYMPHOCYTES ABSOLUTE (CALC) 0.98 10/3/uL (0.67-4.30); MONOCYTES 1 %; MYELOCYTES 1 %; NEUTROPHILS ABSOLUTE (CALC) 8.62 10/3/uL (2.02-8.40); PLATELET ESTIMATE SLT DEC (ADEQUATE); RBC MORPHOLOGY ABN (NORMAL); SEGMENTED NEUTROPHIL (0) 74 %; TOTAL NUCLEATED CELLS 100
[2016-11-24 12:55] LABS: ALLENS TEST Pos; CARBOXYHEMOGLOBIN 0.3 % (0-3); DEVICE NC; HCO3 (ACTUAL BICARBONATE) 23.4 MEQ/L (23-27); HEMOBLOGIN CONTENT 9.9 G/DL (12-16); INSTRUMENT SERIAL # 8083; METHEMOGLOBIN 0.4 % (0-3); O2 CONTENT 13.7 VOL% (18-24); PCO2 (CO2 TENSION) 30 MMHG (35-45); PO2 (O2 TENSION) 103 MMHG (79-93); SAMPLE Arterial; pH 7.52 (7.37-7.43)
[2016-11-25 05:57] LABS: ALBUMIN 2.5 G/DL (3.5-5.0); CALCIUM, SERUM 8.2 MG/DL (8.5-10.4); CHLORIDE, SERUM 100 MMOL/L (96-112); CO2 (CARBON DIOXIDE) 24 MMOL/L (24-34); GFR AFRICAN AMERICAN 125 ML/MIN (>=60); GFR NON AFRICAN AMERICAN 108 ML/MIN (>=60); GLUCOSE, SERUM 127 MG/DL (60-99); POTASSIUM, SERUM 3.7 MMOL/L (3.5-5.3); SODIUM, SERUM 134 MMOL/L (135-148)
[2016-11-25 05:58] LABS: BUN (BLOOD UREA NITROGEN) 14 MG/DL (6-23); PHOSPHORUS, SERUM 2.5 MG/DL (2.5-4.5)
[2016-11-25 07:00] LABS: HEMATOCRIT 27.3 % (36.0-48.0); HEMOGLOBIN 9.2 g/dL (12.0-16.0); MEAN CORPUS HGB CONC 33.7 g/dL (32.0-36.0); MEAN CORPUSCULAR HEMOGLOB 29.8 pg (26.0-34.0); MEAN CORPUSCULAR VOLUME 88.3 fL (80-100); MEAN PLATELET VOLUME 9.2 fL (9.2-13.0); NUCLEATED RED BLOOD CELLS 1.1 /100WBC (0-0); PLATELET COUNT 121 10/3/uL (150-400); RBC DISTRIBUTION WIDTH 16.8 % (12.0-16.0); RED CELL COUNT 3.09 10/6/uL (4.0-5.6)
[2016-11-25 07:04] LABS: MANUAL DIFF YES %; WHITE BLOOD CELLS 16.4 10/3/uL (4.5-10.5)
[2016-11-25 07:26] LABS: PROCALCITONIN 0.67 ng/mL (<0.5)
[2016-11-25 08:00] LABS: BAND NEUTROPHILS 36 %; IMMATURE GRANS ABSOLUTE (CALC) 0.66 10/3/uL (0.0-0.11); LYMPHOCYTES 6 %; LYMPHOCYTES ABSOLUTE (CALC) 0.98 10/3/uL (0.67-4.30); METAMYELOCYTES 4 %; MONOCYTES 5 %; MONOCYTES ABSOLUTE (CALC) 0.82 10/3/uL (0.21-1.20); NEUTROPHILS ABSOLUTE (CALC) 13.94 10/3/uL (2.02-8.40); SEGMENTED NEUTROPHIL (0) 49 %; TOTAL NUCLEATED CELLS 100
[2016-11-25 08:01] LABS: PLATELET ESTIMATE SLT DEC (ADEQUATE)
[2016-11-25 08:02] LABS: TOXIC GRANULATION 1+
[2016-11-25 08:03] LABS: RBC MORPHOLOGY NORM (NORMAL)
[2016-11-26 08:37] LABS: HEMOGLOBIN 8.3 g/dL (12.0-16.0); MEAN CORPUSCULAR HEMOGLOB 30.1 pg (26.0-34.0); MEAN CORPUSCULAR VOLUME 88.4 fL (80-100); MEAN PLATELET VOLUME 9.3 fL (9.2-13.0); PLATELET COUNT 151 10/3/uL (150-400); RED CELL COUNT 2.76 10/6/uL (4.0-5.6)
[2016-11-26 08:40] LABS: HEMATOCRIT 24.4 % (36.0-48.0); MANUAL DIFF YES %; WHITE BLOOD CELLS 23.6 10/3/uL (4.5-10.5)
[2016-11-26 08:51] LABS: BUN (BLOOD UREA NITROGEN) 14 MG/DL (6-23); CALCIUM, SERUM 8.1 MG/DL (8.5-10.4); CHLORIDE, SERUM 100 MMOL/L (96-112); CO2 (CARBON DIOXIDE) 26 MMOL/L (24-34); CREATININE 0.47 MG/DL (0.55-1.02); GFR AFRICAN AMERICAN 128 ML/MIN (>=60); GFR NON AFRICAN AMERICAN 110 ML/MIN (>=60); GLUCOSE, SERUM 132 MG/DL (60-99); POTASSIUM, SERUM 4.2 MMOL/L (3.5-5.3); SODIUM, SERUM 135 MMOL/L (135-148)
[2016-11-26 09:21] LABS: ANISOCYTOSIS 1+ (5-10/OIF) (0-5/OIF); BAND NEUTROPHILS 41 %; IMMATURE GRANS ABSOLUTE (CALC) 0.71 10/3/uL (0.0-0.11); LYMPHOCYTES 6 %; LYMPHOCYTES ABSOLUTE (CALC) 1.42 10/3/uL (0.67-4.30); MACROCYTES 1+ (5-10/OIF) (0-5/OIF); METAMYELOCYTES 2 %; MONOCYTES 5 %; MONOCYTES ABSOLUTE (CALC) 1.18 10/3/uL (0.21-1.20); MYELOCYTES 1 %; PLATELET ESTIMATE ADQ (ADEQUATE); SEGMENTED NEUTROPHIL (0) 45 %; TOTAL NUCLEATED CELLS 100
[2016-11-26 09:22] LABS: TOXIC GRANULATION 1+
[2016-11-26 10:46] LABS: PROCALCITONIN 0.39 ng/mL (<0.5)
[2016-11-28 02:50] LABS: ALLENS TEST Pos; BE (BASE EXCESS) 1.5 MEQ/L (0 +/- 2.5); CARBOXYHEMOGLOBIN 0.3 % (0-3); DEVICE NRB; HEMOBLOGIN CONTENT 10.5 G/DL (12-16); INSTRUMENT SERIAL # 35151; METHEMOGLOBIN 1.1 % (0-3); O2 CONTENT 14.2 VOL% (18-24); OPERATOR ID 18978; PCO2 (CO2 TENSION) 105 MMHG (35-45); PO2 (O2 TENSION) 113 MMHG (79-93); SAMPLE Arterial; pH 7.12 (7.37-7.43)
[2016-11-28 04:13] LABS: BE (BASE EXCESS) 1.8 MEQ/L (0 +/- 2.5); HCO3 (ACTUAL BICARBONATE) 26.2 MEQ/L (23-27); INSTRUMENT SERIAL # 35151; PCO2 (CO2 TENSION) 40 MMHG (35-45); PO2 (O2 TENSION) 344 MMHG (79-93); pH 7.43 (7.37-7.43)
[2016-11-28 04:14] LABS: ALLENS TEST Pos; CARBOXYHEMOGLOBIN 0.3 % (0-3); HEMOBLOGIN CONTENT 9.6 G/DL (12-16); MODE CMV; O2 CONTENT 14.2 VOL% (18-24); OPERATOR ID 13861; SAMPLE Arterial; TIDAL VOLUME 400 ML
[2016-11-28 05:37] LABS: ALBUMIN 2.5 G/DL (3.5-5.0); CHLORIDE, SERUM 98 MMOL/L (96-112); CO2 (CARBON DIOXIDE) 25 MMOL/L (24-34); GFR AFRICAN AMERICAN 125 ML/MIN (>=60); GFR NON AFRICAN AMERICAN 108 ML/MIN (>=60); GLUCOSE, SERUM 117 MG/DL (60-99); POTASSIUM, SERUM 4.3 MMOL/L (3.5-5.3); PREALBUMIN 17.8 MG/DL (17.0-43.0); SGOT(AST) 59 U/L (5-40); SGPT(ALT) 42 U/L (5-65); SODIUM, SERUM 135 MMOL/L (135-148); TOTAL BILIRUBIN 0.8 MG/DL (0-1.2)
[2016-11-28 06:05] LABS: A/G RATIO 0.7 (0.7-1.9); ALKALINE PHOSPHATASE 226 U/L (45-117); BUN (BLOOD UREA NITROGEN) 21 MG/DL (6-23); GLOBULIN 3.8 G/DL (2.5-4.1); PHOSPHORUS, SERUM 4.6 MG/DL (2.5-4.5); TOTAL PROTEIN 6.3 G/DL (6.0-8.5)
[2016-11-28 06:08] LABS: HEMATOCRIT 26.3 % (36.0-48.0); HEMOGLOBIN 8.6 g/dL (12.0-16.0); MEAN CORPUS HGB CONC 32.7 g/dL (32.0-36.0); MEAN CORPUSCULAR HEMOGLOB 29.4 pg (26.0-34.0); MEAN CORPUSCULAR VOLUME 89.8 fL (80-100); MEAN PLATELET VOLUME 9.4 fL (9.2-13.0); NUCLEATED RED BLOOD CELLS 1.8 /100WBC (0-0); RBC DISTRIBUTION WIDTH 17.2 % (12.0-16.0); RED CELL COUNT 2.93 10/6/uL (4.0-5.6)
[2016-11-28 06:10] LABS: MANUAL DIFF YES %; PLATELET COUNT 206 10/3/uL (150-400); WHITE BLOOD CELLS 27.5 10/3/uL (4.5-10.5)
[2016-11-28 06:34] LABS: PROCALCITONIN 0.76 ng/mL (<0.5)
[2016-11-28 06:42] LABS: BAND NEUTROPHILS 30 %; IMMATURE GRANS ABSOLUTE (CALC) 0.83 10/3/uL (0.0-0.11); LYMPHOCYTES 5 %; LYMPHOCYTES ABSOLUTE (CALC) 1.38 10/3/uL (0.67-4.30); METAMYELOCYTES 1 %; MONOCYTES 4 %; MYELOCYTES 2 %; SEGMENTED NEUTROPHIL (0) 58 %; TOTAL NUCLEATED CELLS 100
[2016-11-28 06:43] LABS: ANISOCYTOSIS 1+ (5-10/OIF) (0-5/OIF); PLATELET ESTIMATE ADQ (ADEQUATE)
[2016-11-28 06:44] LABS: TOXIC GRANULATION 1+
[2016-11-29 03:47] LABS: ALLENS TEST Pos; BE (BASE EXCESS) 1.6 MEQ/L (0 +/- 2.5); CARBOXYHEMOGLOBIN 0.3 % (0-3); HCO3 (ACTUAL BICARBONATE) 25.9 MEQ/L (23-27); INSTRUMENT SERIAL # 35151; METHEMOGLOBIN 1.1 % (0-3); MODE CMV; O2 CONTENT 11.1 VOL% (18-24); OPERATOR ID 23712; PCO2 (CO2 TENSION) 40 MMHG (35-45); PO2 (O2 TENSION) 128 MMHG (79-93); SAMPLE Arterial; TIDAL VOLUME 400 ML; pH 7.43 (7.37-7.43)
[2016-11-29 05:48] LABS: ALBUMIN 2.4 G/DL (3.5-5.0); CALCIUM, SERUM 8.3 MG/DL (8.5-10.4); CHLORIDE, SERUM 101 MMOL/L (96-112); CO2 (CARBON DIOXIDE) 25 MMOL/L (24-34); CREATININE 0.49 MG/DL (0.55-1.02); GFR AFRICAN AMERICAN 126 ML/MIN (>=60); GFR NON AFRICAN AMERICAN 109 ML/MIN (>=60); POTASSIUM, SERUM 3.8 MMOL/L (3.5-5.3); SODIUM, SERUM 137 MMOL/L (135-148)
[2016-11-29 05:50] LABS: BUN (BLOOD UREA NITROGEN) 16 MG/DL (6-23); GLUCOSE, SERUM 144 MG/DL (60-99); PHOSPHORUS, SERUM 3.6 MG/DL (2.5-4.5)
[2016-11-29 06:08] LABS: HEMOGLOBIN 7.9 g/dL (12.0-16.0); MEAN CORPUS HGB CONC 33.6 g/dL (32.0-36.0); MEAN CORPUSCULAR VOLUME 89.4 fL (80-100); MEAN PLATELET VOLUME 9.1 fL (9.2-13.0); NUCLEATED RED BLOOD CELLS 1.5 /100WBC (0-0); PLATELET COUNT 203 10/3/uL (150-400); RBC DISTRIBUTION WIDTH 17.2 % (12.0-16.0); RED CELL COUNT 2.63 10/6/uL (4.0-5.6)
[2016-11-29 06:20] LABS: HEMATOCRIT 23.5 % (36.0-48.0); WHITE BLOOD CELLS 37.4 10/3/uL (4.5-10.5)
[2016-11-29 06:21] LABS: MANUAL DIFF YES %
[2016-11-29 07:06] LABS: SEGMENTED NEUTROPHIL (0) 40 %; TOTAL NUCLEATED CELLS 100
[2016-11-29 07:07] LABS: ANISOCYTOSIS 1+ (5-10/OIF) (0-5/OIF); BAND NEUTROPHILS 46 %; IMMATURE GRANS ABSOLUTE (CALC) 0.37 10/3/uL (0.0-0.11); LYMPHOCYTES 10 %; LYMPHOCYTES ABSOLUTE (CALC) 3.74 10/3/uL (0.67-4.30); METAMYELOCYTES 1 %; MONOCYTES 3 %; MONOCYTES ABSOLUTE (CALC) 1.12 10/3/uL (0.21-1.20); NEUTROPHILS ABSOLUTE (CALC) 32.16 10/3/uL (2.02-8.40); PLATELET ESTIMATE ADQ (ADEQUATE); TOXIC GRANULATION 1+
[2016-11-29 07:08] LABS: POLYCHROMASIA 1+ (2-5/OIF) (0-1/OIF)
[2016-11-29 18:47] LABS: BLASTOMYCES DERMATITIDIS AG None detected ng/mL (<0.20); SOURCE Urine (())
[2016-11-30 04:23] LABS: ALLENS TEST Pos; BE (BASE EXCESS) 10.3 MEQ/L (0 +/- 2.5); CARBOXYHEMOGLOBIN 0.3 % (0-3); HCO3 (ACTUAL BICARBONATE) 34.3 MEQ/L (23-27); HEMOBLOGIN CONTENT 9.3 G/DL (12-16); INSTRUMENT SERIAL # 35151; METHEMOGLOBIN 1.1 % (0-3); MODE CMV; PCO2 (CO2 TENSION) 44 MMHG (35-45); PO2 (O2 TENSION) 132 MMHG (79-93); SAMPLE Arterial; TIDAL VOLUME 40 ML; pH 7.51 (7.37-7.43)
[2016-11-30 05:11] LABS: ALBUMIN 2.5 G/DL (3.5-5.0); CALCIUM, SERUM 8.6 MG/DL (8.5-10.4); CREATININE 0.45 MG/DL (0.55-1.02); GFR AFRICAN AMERICAN 130 ML/MIN (>=60); GFR NON AFRICAN AMERICAN 112 ML/MIN (>=60); GLUCOSE, SERUM 142 MG/DL (60-99); PHOSPHORUS, SERUM 3.7 MG/DL (2.5-4.5); SODIUM, SERUM 134 MMOL/L (135-148)
[2016-11-30 05:12] LABS: BUN (BLOOD UREA NITROGEN) 9 MG/DL (6-23); CHLORIDE, SERUM 89 MMOL/L (96-112); CO2 (CARBON DIOXIDE) 32 MMOL/L (24-34)
[2016-11-30 05:13] LABS: BASOPHILS 0.5 %; BASOPHILS ABSOLUTE 0.22 10/3/uL (0.0-0.16); EOSINOPHILS 0.5 %; EOSINOPHILS ABSOLUTE 0.19 10/3/uL (0.0-0.53); HEMATOCRIT 23.2 % (36.0-48.0); HEMOGLOBIN 7.8 g/dL (12.0-16.0); LYMPHOCYTES 7.9 %; LYMPHOCYTES ABSOLUTE 3.27 10/3/uL (0.67-4.30); MEAN CORPUS HGB CONC 33.6 g/dL (32.0-36.0); MEAN CORPUSCULAR HEMOGLOB 29.1 pg (26.0-34.0); MEAN PLATELET VOLUME 8.8 fL (9.2-13.0); NUCLEATED RED BLOOD CELLS 1.4 /100WBC (0-0); PLATELET COUNT 187 10/3/uL (150-400); RBC DISTRIBUTION WIDTH 16.6 % (12.0-16.0); RED CELL COUNT 2.68 10/6/uL (4.0-5.6)
[2016-11-30 05:15] LABS: MANUAL DIFF NO %; MEAN CORPUSCULAR VOLUME 86.6 fL (80-100); WHITE BLOOD CELLS 41.6 10/3/uL (4.5-10.5)
[2016-11-30 05:58] LABS: PROCALCITONIN 1.22 ng/mL (<0.5)
[2016-11-30 06:22] LABS: ANISOCYTOSIS 1+ (5-10/OIF) (0-5/OIF); BAND NEUTROPHILS 43 %; EOSINOPHILS 2 %; EOSINOPHILS ABSOLUTE (CALC) 0.83 10/3/uL (0.0-0.53); IMMATURE GRANS ABSOLUTE (CALC) 1.66 10/3/uL (0.0-0.11); LYMPHOCYTES 9 %; LYMPHOCYTES ABSOLUTE (CALC) 3.74 10/3/uL (0.67-4.30); METAMYELOCYTES 3 %; MONOCYTES 4 %; MONOCYTES ABSOLUTE (CALC) 1.66 10/3/uL (0.21-1.20); MYELOCYTES 1 %; PLATELET ESTIMATE ADQ (ADEQUATE); POLYCHROMASIA 1+ (2-5/OIF) (0-1/OIF); SEGMENTED NEUTROPHIL (0) 38 %; TOTAL NUCLEATED CELLS 100
[2016-11-30 06:23] LABS: BASOPHILIC STIPPLING 1+ (2-5/OIF) (0-1/OIF); TOXIC GRANULATION 1+
[2016-11-30 06:24] LABS: TEARDROP SHAPED RBCS FEW (3-10/OIF)
[2016-12-02 04:31] LABS: A/G RATIO 0.6 (0.7-1.9); ALBUMIN 2.5 G/DL (3.5-5.0); CALCIUM, SERUM 9.4 MG/DL (8.5-10.4); CHLORIDE, SERUM 94 MMOL/L (96-112); CO2 (CARBON DIOXIDE) 31 MMOL/L (24-34); CREATININE 0.61 MG/DL (0.55-1.02); GFR AFRICAN AMERICAN 117 ML/MIN (>=60); GFR NON AFRICAN AMERICAN 101 ML/MIN (>=60); GLOBULIN 4.4 G/DL (2.5-4.1); GLUCOSE, SERUM 148 MG/DL (60-99); SGOT(AST) 38 U/L (5-40); SGPT(ALT) 25 U/L (5-65); SODIUM, SERUM 136 MMOL/L (135-148); TOTAL BILIRUBIN 0.5 MG/DL (0-1.2); TOTAL PROTEIN 6.9 G/DL (6.0-8.5)
[2016-12-02 04:39] LABS: ALKALINE PHOSPHATASE 186 U/L (45-117); BUN (BLOOD UREA NITROGEN) 29 MG/DL (6-23)
[2016-12-02 04:52] LABS: MEAN CORPUS HGB CONC 32.8 g/dL (32.0-36.0); MEAN CORPUSCULAR VOLUME 88.4 fL (80-100); MEAN PLATELET VOLUME 9.7 fL (9.2-13.0); NUCLEATED RED BLOOD CELLS 1.1 /100WBC (0-0); PLATELET COUNT 224 10/3/uL (150-400); RBC DISTRIBUTION WIDTH 16.3 % (12.0-16.0)
[2016-12-02 04:53] LABS: HEMATOCRIT 31.1 % (36.0-48.0); HEMOGLOBIN 10.2 g/dL (12.0-16.0); RED CELL COUNT 3.52 10/6/uL (4.0-5.6); WHITE BLOOD CELLS 46.3 10/3/uL (4.5-10.5)
[2016-12-02 04:54] LABS: MANUAL DIFF YES %
[2016-12-02 05:01] LABS: IMMATURE GRANS ABSOLUTE (CALC) 1.85 10/3/uL (0.0-0.11); LYMPHOCYTES 10 %; LYMPHOCYTES ABSOLUTE (CALC) 4.63 10/3/uL (0.67-4.30); METAMYELOCYTES 3 %; MYELOCYTES 1 %; NEUTROPHILS ABSOLUTE (CALC) 39.82 10/3/uL (2.02-8.40); TOTAL NUCLEATED CELLS 100
[2016-12-02 05:02] LABS: BAND NEUTROPHILS 26 %; PLATELET ESTIMATE ADQ (ADEQUATE); SEGMENTED NEUTROPHIL (0) 60 %; VACUOLATED NEUTROPHILES OCC
[2016-12-02 05:03] LABS: TOXIC GRANULATION SLT
[2016-12-02 20:08] LABS: INSTRUMENT SERIAL # 8083; pH 7.42 (7.37-7.43)
[2016-12-02 20:09] LABS: ALLENS TEST Pos; BE (BASE EXCESS) 11.5 MEQ/L (0 +/- 2.5); CARBOXYHEMOGLOBIN 0.3 % (0-3); DEVICE NRB; HEMOBLOGIN CONTENT 10.9 G/DL (12-16); METHEMOGLOBIN 0.6 % (0-3); O2 CONTENT 15.8 VOL% (18-24); OPERATOR ID 17370; PCO2 (CO2 TENSION) 61 MMHG (35-45); PO2 (O2 TENSION) 275 MMHG (79-93); SAMPLE Arterial
[2016-12-03 01:47] LABS: ALLENS TEST Pos; BE (BASE EXCESS) 10.4 MEQ/L (0 +/- 2.5); CARBOXYHEMOGLOBIN 0.3 % (0-3); HCO3 (ACTUAL BICARBONATE) 34.9 MEQ/L (23-27); INSTRUMENT SERIAL # 8083; METHEMOGLOBIN 0.5 % (0-3); MODE CMV; O2 CONTENT 14.7 VOL% (18-24); OPERATOR ID 35190; PCO2 (CO2 TENSION) 47 MMHG (35-45); PO2 (O2 TENSION) 310 MMHG (79-93); SAMPLE Arterial; TIDAL VOLUME 400 ML; pH 7.49 (7.37-7.43)
[2016-12-03 04:59] LABS: HEMATOCRIT 30.8 % (36.0-48.0); MEAN CORPUS HGB CONC 32.5 g/dL (32.0-36.0); MEAN CORPUSCULAR HEMOGLOB 29.2 pg (26.0-34.0); MEAN CORPUSCULAR VOLUME 90.1 fL (80-100); MEAN PLATELET VOLUME 9.6 fL (9.2-13.0); NUCLEATED RED BLOOD CELLS 1.3 /100WBC (0-0); PLATELET COUNT 188 10/3/uL (150-400); RBC DISTRIBUTION WIDTH 16.1 % (12.0-16.0); RED CELL COUNT 3.42 10/6/uL (4.0-5.6)
[2016-12-03 05:00] LABS: MANUAL DIFF YES %; WHITE BLOOD CELLS 32.6 10/3/uL (4.5-10.5)
[2016-12-03 05:04] LABS: ALBUMIN 2.3 G/DL (3.5-5.0); CALCIUM, SERUM 9.2 MG/DL (8.5-10.4); CHLORIDE, SERUM 96 MMOL/L (96-112); CO2 (CARBON DIOXIDE) 30 MMOL/L (24-34); CREATININE 0.48 MG/DL (0.55-1.02); FREE T4 1.12 NG/DL (0.76-1.46); GFR AFRICAN AMERICAN 127 ML/MIN (>=60); GFR NON AFRICAN AMERICAN 110 ML/MIN (>=60); GLUCOSE, SERUM 127 MG/DL (60-99); PHOSPHORUS, SERUM 2.9 MG/DL (2.5-4.5); POTASSIUM, SERUM 4.3 MMOL/L (3.5-5.3); SODIUM, SERUM 138 MMOL/L (135-148)
[2016-12-03 05:07] LABS: BUN (BLOOD UREA NITROGEN) 23 MG/DL (6-23)
[2016-12-03 05:12] LABS: BAND NEUTROPHILS 17 %; NEUTROPHILS ABSOLUTE (CALC) 29.34 10/3/uL (2.02-8.40); SEGMENTED NEUTROPHIL (0) 73 %; TOTAL NUCLEATED CELLS 100
[2016-12-03 05:13] LABS: EOSINOPHILS 1 %; EOSINOPHILS ABSOLUTE (CALC) 0.33 10/3/uL (0.0-0.53); LYMPHOCYTES 6 %; LYMPHOCYTES ABSOLUTE (CALC) 1.96 10/3/uL (0.67-4.30); MONOCYTES 3 %; MONOCYTES ABSOLUTE (CALC) 0.98 10/3/uL (0.21-1.20); PLATELET ESTIMATE ADQ (ADEQUATE); RBC MORPHOLOGY NORM (NORMAL)
[2016-12-03 18:51] LABS: HISTOPLASMA AG SOURCE Urine (()); HISTOPLASMA ANTIGEN None detected (())
[2016-12-04 04:46] LABS: HEMOGLOBIN 8.1 g/dL (12.0-16.0); MEAN CORPUSCULAR HEMOGLOB 30.5 pg (26.0-34.0); MEAN CORPUSCULAR VOLUME 89.5 fL (80-100); MEAN PLATELET VOLUME 9.2 fL (9.2-13.0); NUCLEATED RED BLOOD CELLS 1.6 /100WBC (0-0); PLATELET COUNT 187 10/3/uL (150-400)
[2016-12-04 04:47] LABS: HEMATOCRIT 23.8 % (36.0-48.0); MANUAL DIFF YES %; RED CELL COUNT 2.66 10/6/uL (4.0-5.6); WHITE BLOOD CELLS 41.7 10/3/uL (4.5-10.5)
[2016-12-04 04:54] LABS: A/G RATIO 0.6 (0.7-1.9); ALBUMIN 2.2 G/DL (3.5-5.0); ALKALINE PHOSPHATASE 187 U/L (45-117); BAND NEUTROPHILS 21 %; CALCIUM, SERUM 8.7 MG/DL (8.5-10.4); CHLORIDE, SERUM 98 MMOL/L (96-112); CO2 (CARBON DIOXIDE) 32 MMOL/L (24-34); CREATININE 0.45 MG/DL (0.55-1.02); EOSINOPHILS 1 %; EOSINOPHILS ABSOLUTE (CALC) 0.42 10/3/uL (0.0-0.53); GFR AFRICAN AMERICAN 130 ML/MIN (>=60); GFR NON AFRICAN AMERICAN 112 ML/MIN (>=60); GLOBULIN 3.9 G/DL (2.5-4.1); GLUCOSE, SERUM 125 MG/DL (60-99); IMMATURE GRANS ABSOLUTE (CALC) 2.09 10/3/uL (0.0-0.11); LYMPHOCYTES 9 %; LYMPHOCYTES ABSOLUTE (CALC) 3.75 10/3/uL (0.67-4.30); METAMYELOCYTES 5 %; MONOCYTES 2 %; MONOCYTES ABSOLUTE (CALC) 0.83 10/3/uL (0.21-1.20); NEUTROPHILS ABSOLUTE (CALC) 34.61 10/3/uL (2.02-8.40); PLATELET ESTIMATE ADQ (ADEQUATE); POTASSIUM, SERUM 3.9 MMOL/L (3.5-5.3); RBC MORPHOLOGY NORM (NORMAL); SEGMENTED NEUTROPHIL (0) 62 %; SGOT(AST) 30 U/L (5-40); SGPT(ALT) 20 U/L (5-65); SODIUM, SERUM 138 MMOL/L (135-148); TOTAL BILIRUBIN 0.4 MG/DL (0-1.2); TOTAL NUCLEATED CELLS 100; TOTAL PROTEIN 6.1 G/DL (6.0-8.5)
[2016-12-04 04:55] LABS: BUN (BLOOD UREA NITROGEN) 16 MG/DL (6-23)
[2016-12-05 04:51] LABS: HEMATOCRIT 24.5 % (36.0-48.0); HEMOGLOBIN 8.1 g/dL (12.0-16.0); MEAN CORPUS HGB CONC 33.1 g/dL (32.0-36.0); MEAN CORPUSCULAR HEMOGLOB 29.7 pg (26.0-34.0); MEAN CORPUSCULAR VOLUME 89.7 fL (80-100); MEAN PLATELET VOLUME 8.6 fL (9.2-13.0); PLATELET COUNT 189 10/3/uL (150-400); RBC DISTRIBUTION WIDTH 15.9 % (12.0-16.0); RED CELL COUNT 2.73 10/6/uL (4.0-5.6)
[2016-12-05 04:53] LABS: WHITE BLOOD CELLS 54.7 10/3/uL (4.5-10.5)
[2016-12-05 04:54] LABS: MANUAL DIFF YES %
[2016-12-05 04:59] LABS: A/G RATIO 0.6 (0.7-1.9); ALBUMIN 2.2 G/DL (3.5-5.0); ALKALINE PHOSPHATASE 187 U/L (45-117); CALCIUM, SERUM 8.5 MG/DL (8.5-10.4); CHLORIDE, SERUM 103 MMOL/L (96-112); CO2 (CARBON DIOXIDE) 29 MMOL/L (24-34); CREATININE 0.45 MG/DL (0.55-1.02); GFR AFRICAN AMERICAN 130 ML/MIN (>=60); GFR NON AFRICAN AMERICAN 112 ML/MIN (>=60); GLUCOSE, SERUM 136 MG/DL (60-99); PHOSPHORUS, SERUM 2.1 MG/DL (2.5-4.5); POTASSIUM, SERUM 3.7 MMOL/L (3.5-5.3); SGOT(AST) 39 U/L (5-40); SGPT(ALT) 21 U/L (5-65); SODIUM, SERUM 141 MMOL/L (135-148); TOTAL BILIRUBIN 0.3 MG/DL (0-1.2); TOTAL PROTEIN 6.2 G/DL (6.0-8.5)
[2016-12-05 05:01] LABS: BUN (BLOOD UREA NITROGEN) 12 MG/DL (6-23)
[2016-12-05 05:08] LABS: BAND NEUTROPHILS 12 %; BASOPHILS 1 %; BASOPHILS ABSOLUTE (CALC) 0.55 10/3/uL (0.0-0.16); IMMATURE GRANS ABSOLUTE (CALC) 1.64 10/3/uL (0.0-0.11); LYMPHOCYTES 14 %; LYMPHOCYTES ABSOLUTE (CALC) 7.66 10/3/uL (0.67-4.30); METAMYELOCYTES 2 %; MYELOCYTES 1 %; NEUTROPHILS ABSOLUTE (CALC) 44.85 10/3/uL (2.02-8.40); PLATELET ESTIMATE ADQ (ADEQUATE); SEGMENTED NEUTROPHIL (0) 70 %; TOTAL NUCLEATED CELLS 100
[2016-12-05 05:10] LABS: SPHEROCYTES FEW (3-10/OIF)
[2016-12-05 05:13] LABS: PATH REVIEW YES
[2016-12-06 04:28] LABS: ALLENS TEST Pos; BE (BASE EXCESS) 3.9 MEQ/L (0 +/- 2.5); HCO3 (ACTUAL BICARBONATE) 27.5 MEQ/L (23-27); INSTRUMENT SERIAL # 8083; METHEMOGLOBIN 0.8 % (0-3); MODE CMV; O2 CONTENT 11.2 VOL% (18-24); PCO2 (CO2 TENSION) 37 MMHG (35-45); PO2 (O2 TENSION) 128 MMHG (79-93); SAMPLE Arterial; TIDAL VOLUME 400 ML; pH 7.49 (7.37-7.43)
[2016-12-06 05:06] LABS: A/G RATIO 0.5 (0.7-1.9); ALBUMIN 2.1 G/DL (3.5-5.0); ALKALINE PHOSPHATASE 192 U/L (45-117); BUN (BLOOD UREA NITROGEN) 11 MG/DL (6-23); CALCIUM, SERUM 8.3 MG/DL (8.5-10.4); CHLORIDE, SERUM 103 MMOL/L (96-112); CO2 (CARBON DIOXIDE) 28 MMOL/L (24-34); CREATININE 0.57 MG/DL (0.55-1.02); GFR AFRICAN AMERICAN 120 ML/MIN (>=60); GFR NON AFRICAN AMERICAN 104 ML/MIN (>=60); GLOBULIN 3.9 G/DL (2.5-4.1); GLUCOSE, SERUM 131 MG/DL (60-99); PHOSPHORUS, SERUM 2.2 MG/DL (2.5-4.5); POTASSIUM, SERUM 3.7 MMOL/L (3.5-5.3); SGOT(AST) 35 U/L (5-40); SGPT(ALT) 15 U/L (5-65); SODIUM, SERUM 141 MMOL/L (135-148); TOTAL BILIRUBIN 0.3 MG/DL (0-1.2)
[2016-12-06 05:47] LABS: HEMATOCRIT 24.4 % (36.0-48.0); MEAN CORPUS HGB CONC 32.8 g/dL (32.0-36.0); MEAN CORPUSCULAR HEMOGLOB 29.7 pg (26.0-34.0); MEAN CORPUSCULAR VOLUME 90.7 fL (80-100); MEAN PLATELET VOLUME 9.3 fL (9.2-13.0); NUCLEATED RED BLOOD CELLS 1.2 /100WBC (0-0); PLATELET COUNT 204 10/3/uL (150-400); RBC DISTRIBUTION WIDTH 16.3 % (12.0-16.0); RED CELL COUNT 2.69 10/6/uL (4.0-5.6)
[2016-12-06 05:59] LABS: WHITE BLOOD CELLS 61.2 10/3/uL (4.5-10.5)
[2016-12-06 06:00] LABS: MANUAL DIFF YES %
[2016-12-06 06:22] LABS: BAND NEUTROPHILS 13 %; IMMATURE GRANS ABSOLUTE (CALC) 1.84 10/3/uL (0.0-0.11); LYMPHOCYTES 1 %; LYMPHOCYTES ABSOLUTE (CALC) 0.61 10/3/uL (0.67-4.30); METAMYELOCYTES 3 %; MONOCYTES 3 %; MONOCYTES ABSOLUTE (CALC) 1.84 10/3/uL (0.21-1.20); NEUTROPHILS ABSOLUTE (CALC) 56.92 10/3/uL (2.02-8.40); SEGMENTED NEUTROPHIL (0) 80 %; TOTAL NUCLEATED CELLS 100
[2016-12-06 06:23] LABS: PLATELET ESTIMATE ADQ (ADEQUATE)
[2016-12-06 06:25] LABS: RBC MORPHOLOGY NORM (NORMAL)
[2016-12-07 03:42] LABS: BE (BASE EXCESS) 1.3 MEQ/L (0 +/- 2.5); HCO3 (ACTUAL BICARBONATE) 24.3 MEQ/L (23-27); INSTRUMENT SERIAL # 8083; PCO2 (CO2 TENSION) 32 MMHG (35-45); PO2 (O2 TENSION) 142 MMHG (79-93)
[2016-12-07 03:43] LABS: ALLENS TEST Pos; HEMOBLOGIN CONTENT 8.1 G/DL (12-16); METHEMOGLOBIN 0.7 % (0-3); MODE CMV; O2 CONTENT 11.4 VOL% (18-24); OPERATOR ID 31061; SAMPLE Arterial; TIDAL VOLUME 400 ML
[2016-12-07 04:20] LABS: A/G RATIO 0.5 (0.7-1.9); ALBUMIN 2.1 G/DL (3.5-5.0); ALKALINE PHOSPHATASE 201 U/L (45-117); BUN (BLOOD UREA NITROGEN) 14 MG/DL (6-23); CALCIUM, SERUM 8.8 MG/DL (8.5-10.4); CHLORIDE, SERUM 102 MMOL/L (96-112); CO2 (CARBON DIOXIDE) 30 MMOL/L (24-34); CREATININE 0.46 MG/DL (0.55-1.02); GFR AFRICAN AMERICAN 129 ML/MIN (>=60); GFR NON AFRICAN AMERICAN 111 ML/MIN (>=60); GLUCOSE, SERUM 145 MG/DL (60-99); PHOSPHORUS, SERUM 2.8 MG/DL (2.5-4.5); POTASSIUM, SERUM 4.2 MMOL/L (3.5-5.3); SGOT(AST) 40 U/L (5-40); SGPT(ALT) 20 U/L (5-65); SODIUM, SERUM 139 MMOL/L (135-148); TOTAL BILIRUBIN 0.3 MG/DL (0-1.2); TOTAL PROTEIN 6.1 G/DL (6.0-8.5)
[2016-12-07 04:32] LABS: HEMATOCRIT 24.2 % (36.0-48.0); MEAN CORPUS HGB CONC 33.1 g/dL (32.0-36.0); MEAN CORPUSCULAR HEMOGLOB 29.6 pg (26.0-34.0); MEAN CORPUSCULAR VOLUME 89.6 fL (80-100); MEAN PLATELET VOLUME 8.8 fL (9.2-13.0); NUCLEATED RED BLOOD CELLS 1.6 /100WBC (0-0); PLATELET COUNT 199 10/3/uL (150-400); RBC DISTRIBUTION WIDTH 16.1 % (12.0-16.0); WHITE BLOOD CELLS 46.5 10/3/uL (4.5-10.5)
[2016-12-07 04:33] LABS: MANUAL DIFF YES %
[2016-12-07 04:48] LABS: BAND NEUTROPHILS 3 %; IMMATURE GRANS ABSOLUTE (CALC) 0.93 10/3/uL (0.0-0.11); LYMPHOCYTES 10 %; LYMPHOCYTES ABSOLUTE (CALC) 4.65 10/3/uL (0.67-4.30); METAMYELOCYTES 2 %; MONOCYTES 2 %; MONOCYTES ABSOLUTE (CALC) 0.93 10/3/uL (0.21-1.20); NEUTROPHILS ABSOLUTE (CALC) 39.99 10/3/uL (2.02-8.40); PLATELET ESTIMATE ADQ (ADEQUATE); SEGMENTED NEUTROPHIL (0) 83 %; TOTAL NUCLEATED CELLS 100
[2016-12-07 05:24] LABS: PROCALCITONIN 0.63 ng/mL (<0.5)
[2016-12-08 03:55] LABS: ALLENS TEST Pos; BE (BASE EXCESS) 3.6 MEQ/L (0 +/- 2.5); CARBOXYHEMOGLOBIN 0.9 % (0-3); HCO3 (ACTUAL BICARBONATE) 26.9 MEQ/L (23-27); HEMOBLOGIN CONTENT 8.1 G/DL (12-16); INSTRUMENT SERIAL # 8083; METHEMOGLOBIN 0.4 % (0-3); MODE ECMO; O2 CONTENT 11.5 VOL% (18-24); PCO2 (CO2 TENSION) 35 MMHG (35-45); PO2 (O2 TENSION) 149 MMHG (79-93); SAMPLE Arterial; TIDAL VOLUME 400 ML
[2016-12-08 04:40] LABS: A/G RATIO 0.6 (0.7-1.9); ALBUMIN 2.2 G/DL (3.5-5.0); BUN (BLOOD UREA NITROGEN) 17 MG/DL (6-23); CALCIUM, SERUM 8.6 MG/DL (8.5-10.4); CHLORIDE, SERUM 101 MMOL/L (96-112); CO2 (CARBON DIOXIDE) 27 MMOL/L (24-34); GFR AFRICAN AMERICAN 135 ML/MIN (>=60); GFR NON AFRICAN AMERICAN 116 ML/MIN (>=60); GLUCOSE, SERUM 131 MG/DL (60-99); HEMOGLOBIN 7.8 g/dL (12.0-16.0); MEAN CORPUS HGB CONC 32.5 g/dL (32.0-36.0); MEAN CORPUSCULAR HEMOGLOB 29.2 pg (26.0-34.0); MEAN CORPUSCULAR VOLUME 89.9 fL (80-100); MEAN PLATELET VOLUME 8.7 fL (9.2-13.0); NUCLEATED RED BLOOD CELLS 2.6 /100WBC (0-0); PHOSPHORUS, SERUM 3.2 MG/DL (2.5-4.5); PLATELET COUNT 189 10/3/uL (150-400); POTASSIUM, SERUM 4.2 MMOL/L (3.5-5.3); RBC DISTRIBUTION WIDTH 16.3 % (12.0-16.0); RED CELL COUNT 2.67 10/6/uL (4.0-5.6); SGOT(AST) 48 U/L (5-40); SGPT(ALT) 32 U/L (5-65); SODIUM, SERUM 137 MMOL/L (135-148); TOTAL BILIRUBIN 0.3 MG/DL (0-1.2); TOTAL PROTEIN 6.2 G/DL (6.0-8.5)
[2016-12-08 04:41] LABS: MANUAL DIFF YES %; WHITE BLOOD CELLS 31.5 10/3/uL (4.5-10.5)
[2016-12-08 04:44] LABS: ALKALINE PHOSPHATASE 172 U/L (45-117)
[2016-12-08 05:13] LABS: ANISOCYTOSIS 1+ (5-10/OIF) (0-5/OIF); BAND NEUTROPHILS 4 %; IMMATURE GRANS ABSOLUTE (CALC) 3.15 10/3/uL (0.0-0.11); LYMPHOCYTES 6 %; LYMPHOCYTES ABSOLUTE (CALC) 1.89 10/3/uL (0.67-4.30); METAMYELOCYTES 3 %; MONOCYTES 5 %; MONOCYTES ABSOLUTE (CALC) 1.58 10/3/uL (0.21-1.20); MYELOCYTES 7 %; NEUTROPHILS ABSOLUTE (CALC) 24.89 10/3/uL (2.02-8.40); PLATELET ESTIMATE ADQ (ADEQUATE); RBC MORPHOLOGY ABN (NORMAL); SEGMENTED NEUTROPHIL (0) 75 %; TOTAL NUCLEATED CELLS 100
[2016-12-09 03:56] LABS: HEMATOCRIT 23.4 % (36.0-48.0); HEMOGLOBIN 7.8 g/dL (12.0-16.0); MEAN CORPUS HGB CONC 33.3 g/dL (32.0-36.0); MEAN CORPUSCULAR HEMOGLOB 29.7 pg (26.0-34.0); MEAN PLATELET VOLUME 8.6 fL (9.2-13.0); PLATELET COUNT 188 10/3/uL (150-400); RBC DISTRIBUTION WIDTH 16.6 % (12.0-16.0); RED CELL COUNT 2.63 10/6/uL (4.0-5.6)
[2016-12-09 03:57] LABS: MANUAL DIFF YES %; WHITE BLOOD CELLS 29.6 10/3/uL (4.5-10.5)
[2016-12-09 04:02] LABS: A/G RATIO 0.6 (0.7-1.9); ALBUMIN 2.4 G/DL (3.5-5.0); ALKALINE PHOSPHATASE 166 U/L (45-117); BUN (BLOOD UREA NITROGEN) 17 MG/DL (6-23); CALCIUM, SERUM 8.3 MG/DL (8.5-10.4); CHLORIDE, SERUM 102 MMOL/L (96-112); CO2 (CARBON DIOXIDE) 26 MMOL/L (24-34); GFR AFRICAN AMERICAN 125 ML/MIN (>=60); GFR NON AFRICAN AMERICAN 108 ML/MIN (>=60); GLUCOSE, SERUM 131 MG/DL (60-99); PHOSPHORUS, SERUM 2.8 MG/DL (2.5-4.5); POTASSIUM, SERUM 4.1 MMOL/L (3.5-5.3); SGOT(AST) 49 U/L (5-40); SGPT(ALT) 44 U/L (5-65); SODIUM, SERUM 138 MMOL/L (135-148); TOTAL BILIRUBIN 0.3 MG/DL (0-1.2); TOTAL PROTEIN 6.4 G/DL (6.0-8.5)
[2016-12-09 04:06] LABS: ANISOCYTOSIS 1+ (5-10/OIF) (0-5/OIF); BAND NEUTROPHILS 7 %; IMMATURE GRANS ABSOLUTE (CALC) 2.37 10/3/uL (0.0-0.11); LYMPHOCYTES 10 %; LYMPHOCYTES ABSOLUTE (CALC) 2.96 10/3/uL (0.67-4.30); METAMYELOCYTES 4 %; MONOCYTES 4 %; MONOCYTES ABSOLUTE (CALC) 1.18 10/3/uL (0.21-1.20); MYELOCYTES 4 %; NEUTROPHILS ABSOLUTE (CALC) 23.09 10/3/uL (2.02-8.40); PLATELET ESTIMATE ADQ (ADEQUATE); RBC MORPHOLOGY ABN (NORMAL); SEGMENTED NEUTROPHIL (0) 71 %; TOTAL NUCLEATED CELLS 100
[2016-12-09 09:03] LABS: ASCORBIC ACID (UR NOT ORDER) 20 (NEG); BILIRUBIN, URINE NEGATIVE (NEG); KETONE, URINE NEGATIVE (NEG); LEUKOCYTE ESTERASE(NOT OR SMALL (NEG); WBC (NOT ORDERED) (RFLEX) 53 (0-5)
[2016-12-09 09:18] LABS: PROCALCITONIN 0.44 ng/mL (<0.5)
[2016-12-10 03:51] LABS: MEAN CORPUS HGB CONC 33.3 g/dL (32.0-36.0); MEAN CORPUSCULAR HEMOGLOB 29.6 pg (26.0-34.0); MEAN CORPUSCULAR VOLUME 88.7 fL (80-100); MEAN PLATELET VOLUME 8.8 fL (9.2-13.0); NUCLEATED RED BLOOD CELLS 2.4 /100WBC (0-0); PLATELET COUNT 193 10/3/uL (150-400); RBC DISTRIBUTION WIDTH 16.9 % (12.0-16.0)
[2016-12-10 03:56] LABS: BUN (BLOOD UREA NITROGEN) 17 MG/DL (6-23); CALCIUM, SERUM 8.5 MG/DL (8.5-10.4); CHLORIDE, SERUM 106 MMOL/L (96-112); CO2 (CARBON DIOXIDE) 27 MMOL/L (24-34); CREATININE 0.36 MG/DL (0.55-1.02); GFR AFRICAN AMERICAN 140 ML/MIN (>=60); GFR NON AFRICAN AMERICAN 121 ML/MIN (>=60); GLUCOSE, SERUM 136 MG/DL (60-99); HEMATOCRIT 20.4 % (36.0-48.0); HEMOGLOBIN 6.8 g/dL (12.0-16.0); PHOSPHORUS, SERUM 2.9 MG/DL (2.5-4.5); POTASSIUM, SERUM 3.7 MMOL/L (3.5-5.3); SODIUM, SERUM 142 MMOL/L (135-148); WHITE BLOOD CELLS 41.6 10/3/uL (4.5-10.5)
[2016-12-10 03:57] LABS: MANUAL DIFF YES %
[2016-12-10 04:10] LABS: BAND NEUTROPHILS 33 %; IMMATURE GRANS ABSOLUTE (CALC) 6.24 10/3/uL (0.0-0.11); LYMPHOCYTES 7 %; LYMPHOCYTES ABSOLUTE (CALC) 2.91 10/3/uL (0.67-4.30); METAMYELOCYTES 11 %; MONOCYTES 7 %; MONOCYTES ABSOLUTE (CALC) 2.91 10/3/uL (0.21-1.20); MYELOCYTES 3 %; NEUTROPHILS ABSOLUTE (CALC) 29.54 10/3/uL (2.02-8.40); PLATELET ESTIMATE ADQ (ADEQUATE); PROMYELOCYTES 1 % (0); SEGMENTED NEUTROPHIL (0) 38 %; TOTAL NUCLEATED CELLS 100
[2016-12-10 04:11] LABS: RBC MORPHOLOGY NORM (NORMAL)
[2016-12-10 05:33] LABS: PROCALCITONIN 0.94 ng/mL (<0.5)
[2016-12-10 11:08] LABS: ASCORBIC ACID (UR NOT ORDER) NEG (NEG); BILIRUBIN, URINE NEGATIVE (NEG); KETONE, URINE NEGATIVE (NEG); LEUKOCYTE ESTERASE(NOT OR NEG (NEG); WBC (NOT ORDERED) (RFLEX) 1 (0-5)
[2016-12-11 04:05] LABS: HEMATOCRIT 25.2 % (36.0-48.0); HEMOGLOBIN 8.5 g/dL (12.0-16.0); MEAN CORPUS HGB CONC 33.7 g/dL (32.0-36.0); MEAN CORPUSCULAR HEMOGLOB 29.5 pg (26.0-34.0); MEAN CORPUSCULAR VOLUME 87.5 fL (80-100); MEAN PLATELET VOLUME 8.8 fL (9.2-13.0); PLATELET COUNT 180 10/3/uL (150-400); RBC DISTRIBUTION WIDTH 16.4 % (12.0-16.0); RED CELL COUNT 2.88 10/6/uL (4.0-5.6); WHITE BLOOD CELLS 29.4 10/3/uL (4.5-10.5)
[2016-12-11 04:06] LABS: MANUAL DIFF YES %
[2016-12-11 04:13] LABS: A/G RATIO 0.5 (0.7-1.9); ALBUMIN 2.3 G/DL (3.5-5.0); ALKALINE PHOSPHATASE 174 U/L (45-117); BUN (BLOOD UREA NITROGEN) 16 MG/DL (6-23); CHLORIDE, SERUM 101 MMOL/L (96-112); CO2 (CARBON DIOXIDE) 25 MMOL/L (24-34); CREATININE 0.37 MG/DL (0.55-1.02); GFR AFRICAN AMERICAN 138 ML/MIN (>=60); GFR NON AFRICAN AMERICAN 119 ML/MIN (>=60); GLOBULIN 4.3 G/DL (2.5-4.1); POTASSIUM, SERUM 4.2 MMOL/L (3.5-5.3); SGOT(AST) 39 U/L (5-40); SGPT(ALT) 43 U/L (5-65); SODIUM, SERUM 136 MMOL/L (135-148); TOTAL BILIRUBIN 0.4 MG/DL (0-1.2); TOTAL PROTEIN 6.6 G/DL (6.0-8.5)
[2016-12-11 04:17] LABS: GLUCOSE, SERUM 118 MG/DL (60-99)
[2016-12-11 04:21] LABS: BAND NEUTROPHILS 11 %; IMMATURE GRANS ABSOLUTE (CALC) 3.82 10/3/uL (0.0-0.11); LYMPHOCYTES 10 %; LYMPHOCYTES ABSOLUTE (CALC) 2.94 10/3/uL (0.67-4.30); METAMYELOCYTES 8 %; MONOCYTES 3 %; MONOCYTES ABSOLUTE (CALC) 0.88 10/3/uL (0.21-1.20); MYELOCYTES 5 %; NEUTROPHILS ABSOLUTE (CALC) 21.76 10/3/uL (2.02-8.40); PLATELET ESTIMATE ADQ (ADEQUATE); RBC MORPHOLOGY NORM (NORMAL); SEGMENTED NEUTROPHIL (0) 63 %; TOTAL NUCLEATED CELLS 100
[2016-12-11 06:58] LABS: PROCALCITONIN 0.58 ng/mL (<0.5)
[2016-12-12 04:07] LABS: HEMOGLOBIN 8.4 g/dL (12.0-16.0); MEAN CORPUS HGB CONC 33.6 g/dL (32.0-36.0); MEAN CORPUSCULAR HEMOGLOB 29.6 pg (26.0-34.0); MEAN PLATELET VOLUME 8.6 fL (9.2-13.0); PLATELET COUNT 187 10/3/uL (150-400); RBC DISTRIBUTION WIDTH 16.3 % (12.0-16.0); RED CELL COUNT 2.84 10/6/uL (4.0-5.6)
[2016-12-12 04:08] LABS: WHITE BLOOD CELLS 43.8 10/3/uL (4.5-10.5)
[2016-12-12 04:09] LABS: MANUAL DIFF YES %
[2016-12-12 04:19] LABS: BUN (BLOOD UREA NITROGEN) 17 MG/DL (6-23); CHLORIDE, SERUM 101 MMOL/L (96-112); CO2 (CARBON DIOXIDE) 25 MMOL/L (24-34); CREATININE 0.42 MG/DL (0.55-1.02); GFR AFRICAN AMERICAN 133 ML/MIN (>=60); GFR NON AFRICAN AMERICAN 115 ML/MIN (>=60); GLUCOSE, SERUM 116 MG/DL (60-99); PHOSPHORUS, SERUM 3.5 MG/DL (2.5-4.5); SODIUM, SERUM 137 MMOL/L (135-148)
[2016-12-12 04:46] LABS: BAND NEUTROPHILS 17 %; IMMATURE GRANS ABSOLUTE (CALC) 3.94 10/3/uL (0.0-0.11); LYMPHOCYTES 4 %; LYMPHOCYTES ABSOLUTE (CALC) 1.75 10/3/uL (0.67-4.30); METAMYELOCYTES 4 %; MONOCYTES 2 %; MONOCYTES ABSOLUTE (CALC) 0.88 10/3/uL (0.21-1.20); MYELOCYTES 5 %; NEUTROPHILS ABSOLUTE (CALC) 37.23 10/3/uL (2.02-8.40); SEGMENTED NEUTROPHIL (0) 68 %; TOTAL NUCLEATED CELLS 100
[2016-12-12 04:47] LABS: ANISOCYTOSIS 1+ (5-10/OIF) (0-5/OIF); PLATELET ESTIMATE ADQ (ADEQUATE); RBC MORPHOLOGY ABN (NORMAL)
[2016-12-12 06:38] LABS: PROCALCITONIN 0.49 ng/mL (<0.5)
[2016-12-13 05:40] LABS: BUN (BLOOD UREA NITROGEN) 18 MG/DL (6-23); CHLORIDE, SERUM 105 MMOL/L (96-112); CO2 (CARBON DIOXIDE) 22 MMOL/L (24-34); CREATININE 0.42 MG/DL (0.55-1.02); GFR AFRICAN AMERICAN 133 ML/MIN (>=60); GFR NON AFRICAN AMERICAN 115 ML/MIN (>=60); GLUCOSE, SERUM 115 MG/DL (60-99); POTASSIUM, SERUM 4.2 MMOL/L (3.5-5.3); SODIUM, SERUM 138 MMOL/L (135-148)
[2016-12-13 06:12] LABS: HEMATOCRIT 23.6 % (36.0-48.0); HEMOGLOBIN 7.7 g/dL (12.0-16.0); MEAN CORPUS HGB CONC 32.6 g/dL (32.0-36.0); MEAN CORPUSCULAR HEMOGLOB 29.7 pg (26.0-34.0); MEAN PLATELET VOLUME 9.1 fL (9.2-13.0); NUCLEATED RED BLOOD CELLS 1.1 /100WBC (0-0); PLATELET COUNT 189 10/3/uL (150-400); RBC DISTRIBUTION WIDTH 16.8 % (12.0-16.0); RED CELL COUNT 2.59 10/6/uL (4.0-5.6)
[2016-12-13 06:14] LABS: ASCORBIC ACID (UR NOT ORDER) 40 (NEG); BILIRUBIN, URINE NEGATIVE (NEG); KETONE, URINE NEGATIVE (NEG); LEUKOCYTE ESTERASE(NOT OR NEG (NEG); WBC (NOT ORDERED) (RFLEX) 4 (0-5)
[2016-12-13 06:14] LABS: MANUAL DIFF YES %; MEAN CORPUSCULAR VOLUME 91.1 fL (80-100); WHITE BLOOD CELLS 57.5 10/3/uL (4.5-10.5)
[2016-12-13 07:32] LABS: BAND NEUTROPHILS 16 %; LYMPHOCYTES 3 %; LYMPHOCYTES ABSOLUTE (CALC) 1.73 10/3/uL (0.67-4.30); MONOCYTES 3 %; MONOCYTES ABSOLUTE (CALC) 1.73 10/3/uL (0.21-1.20); NEUTROPHILS ABSOLUTE (CALC) 54.05 10/3/uL (2.02-8.40); SEGMENTED NEUTROPHIL (0) 78 %; TOTAL NUCLEATED CELLS 100
[2016-12-13 07:33] LABS: ANISOCYTOSIS 1+ (5-10/OIF) (0-5/OIF); PLATELET ESTIMATE ADQ (ADEQUATE)
[2016-12-14 05:25] LABS: BUN (BLOOD UREA NITROGEN) 18 MG/DL (6-23); CALCIUM, SERUM 9.4 MG/DL (8.5-10.4); CHLORIDE, SERUM 104 MMOL/L (96-112); CO2 (CARBON DIOXIDE) 24 MMOL/L (24-34); CREATININE 0.46 MG/DL (0.55-1.02); GFR AFRICAN AMERICAN 129 ML/MIN (>=60); GFR NON AFRICAN AMERICAN 111 ML/MIN (>=60); GLUCOSE, SERUM 98 MG/DL (60-99); HEMATOCRIT 25.4 % (36.0-48.0); HEMOGLOBIN 8.4 g/dL (12.0-16.0); MEAN CORPUS HGB CONC 33.1 g/dL (32.0-36.0); MEAN CORPUSCULAR VOLUME 90.7 fL (80-100); MEAN PLATELET VOLUME 8.7 fL (9.2-13.0); NUCLEATED RED BLOOD CELLS 1.5 /100WBC (0-0); PHOSPHORUS, SERUM 3.9 MG/DL (2.5-4.5); PLATELET COUNT 227 10/3/uL (150-400); POTASSIUM, SERUM 4.2 MMOL/L (3.5-5.3); RBC DISTRIBUTION WIDTH 16.7 % (12.0-16.0); SODIUM, SERUM 139 MMOL/L (135-148)
[2016-12-14 05:26] LABS: MANUAL DIFF YES %; WHITE BLOOD CELLS 72.4 10/3/uL (4.5-10.5)
[2016-12-14 05:52] LABS: PROCALCITONIN 0.78 ng/mL (<0.5)
[2016-12-14 05:55] LABS: BAND NEUTROPHILS 14 %; IMMATURE GRANS ABSOLUTE (CALC) 1.45 10/3/uL (0.0-0.11); LYMPHOCYTES 3 %; LYMPHOCYTES ABSOLUTE (CALC) 2.17 10/3/uL (0.67-4.30); MONOCYTES 1 %; MONOCYTES ABSOLUTE (CALC) 0.72 10/3/uL (0.21-1.20); MYELOCYTES 2 %; NEUTROPHILS ABSOLUTE (CALC) 68.06 10/3/uL (2.02-8.40); PLATELET ESTIMATE ADQ (ADEQUATE); SEGMENTED NEUTROPHIL (0) 80 %; TOTAL NUCLEATED CELLS 100
[2016-12-14 05:56] LABS: ANISOCYTOSIS 1+ (5-10/OIF) (0-5/OIF); RBC MORPHOLOGY ABN (NORMAL)
[2016-12-15 05:03] LABS: HEMATOCRIT 25.5 % (36.0-48.0); HEMOGLOBIN 8.6 g/dL (12.0-16.0); MEAN CORPUS HGB CONC 33.7 g/dL (32.0-36.0); MEAN CORPUSCULAR HEMOGLOB 30.2 pg (26.0-34.0); MEAN CORPUSCULAR VOLUME 89.5 fL (80-100); MEAN PLATELET VOLUME 8.4 fL (9.2-13.0); NUCLEATED RED BLOOD CELLS 2.2 /100WBC (0-0); PLATELET COUNT 218 10/3/uL (150-400); RBC DISTRIBUTION WIDTH 16.8 % (12.0-16.0); RED CELL COUNT 2.85 10/6/uL (4.0-5.6)
[2016-12-15 05:07] LABS: WHITE BLOOD CELLS 66.1 10/3/uL (4.5-10.5)
[2016-12-15 05:08] LABS: MANUAL DIFF YES %
[2016-12-15 05:14] LABS: BUN (BLOOD UREA NITROGEN) 15 MG/DL (6-23); CALCIUM, SERUM 9.2 MG/DL (8.5-10.4); CHLORIDE, SERUM 102 MMOL/L (96-112); CO2 (CARBON DIOXIDE) 25 MMOL/L (24-34); CREATININE 0.49 MG/DL (0.55-1.02); GFR AFRICAN AMERICAN 126 ML/MIN (>=60); GFR NON AFRICAN AMERICAN 109 ML/MIN (>=60); PHOSPHORUS, SERUM 3.4 MG/DL (2.5-4.5); POTASSIUM, SERUM 3.7 MMOL/L (3.5-5.3); SODIUM, SERUM 136 MMOL/L (135-148)
[2016-12-15 05:17] LABS: GLUCOSE, SERUM 75 MG/DL (60-99)
[2016-12-15 05:48] LABS: BAND NEUTROPHILS 12 %; IMMATURE GRANS ABSOLUTE (CALC) 3.31 10/3/uL (0.0-0.11); LYMPHOCYTES 6 %; LYMPHOCYTES ABSOLUTE (CALC) 3.97 10/3/uL (0.67-4.30); METAMYELOCYTES 2 %; MONOCYTES 6 %; MONOCYTES ABSOLUTE (CALC) 3.97 10/3/uL (0.21-1.20); MYELOCYTES 3 %; NEUTROPHILS ABSOLUTE (CALC) 54.86 10/3/uL (2.02-8.40); SEGMENTED NEUTROPHIL (0) 71 %; TOTAL NUCLEATED CELLS 100
[2016-12-15 05:49] LABS: PLATELET ESTIMATE ADQ (ADEQUATE); POLYCHROMASIA 1+ (2-5/OIF) (0-1/OIF)
[2016-12-15 05:50] LABS: TOXIC GRANULATION SLT; VACUOLATED NEUTROPHILES OCC
[2016-12-16 04:02] LABS: ALBUMIN 2.7 G/DL (3.5-5.0); BUN (BLOOD UREA NITROGEN) 13 MG/DL (6-23); CALCIUM, SERUM 9.1 MG/DL (8.5-10.4); CHLORIDE, SERUM 103 MMOL/L (96-112); CO2 (CARBON DIOXIDE) 22 MMOL/L (24-34); CREATININE 0.42 MG/DL (0.55-1.02); GFR AFRICAN AMERICAN 133 ML/MIN (>=60); GFR NON AFRICAN AMERICAN 115 ML/MIN (>=60); GLUCOSE, SERUM 74 MG/DL (60-99); PHOSPHORUS, SERUM 3.1 MG/DL (2.5-4.5); POTASSIUM, SERUM 3.6 MMOL/L (3.5-5.3); SODIUM, SERUM 138 MMOL/L (135-148)
[2016-12-16 04:03] LABS: HEMATOCRIT 25.2 % (36.0-48.0); HEMOGLOBIN 8.3 g/dL (12.0-16.0); MEAN CORPUS HGB CONC 32.9 g/dL (32.0-36.0); MEAN CORPUSCULAR HEMOGLOB 29.5 pg (26.0-34.0); MEAN CORPUSCULAR VOLUME 89.7 fL (80-100); MEAN PLATELET VOLUME 8.6 fL (9.2-13.0); NUCLEATED RED BLOOD CELLS 2.2 /100WBC (0-0); PLATELET COUNT 232 10/3/uL (150-400); RED CELL COUNT 2.81 10/6/uL (4.0-5.6)
[2016-12-16 04:04] LABS: WHITE BLOOD CELLS 53.2 10/3/uL (4.5-10.5)
[2016-12-16 04:05] LABS: MANUAL DIFF YES %
[2016-12-16 06:24] LABS: ANISOCYTOSIS 1+ (5-10/OIF) (0-5/OIF); BAND NEUTROPHILS 7 %; LYMPHOCYTES 5 %; LYMPHOCYTES ABSOLUTE (CALC) 2.66 10/3/uL (0.67-4.30); METAMYELOCYTES 3 %; MONOCYTES 9 %; MONOCYTES ABSOLUTE (CALC) 4.79 10/3/uL (0.21-1.20); NEUTROPHILS ABSOLUTE (CALC) 44.16 10/3/uL (2.02-8.40); PLATELET ESTIMATE ADQ (ADEQUATE); POLYCHROMASIA 1+ (2-5/OIF) (0-1/OIF); SEGMENTED NEUTROPHIL (0) 76 %; TOTAL NUCLEATED CELLS 100
[2016-12-16 06:25] LABS: VACUOLATED NEUTROPHILES OCC
[2016-12-18 05:07] LABS: HEMATOCRIT 25.7 % (36.0-48.0); HEMOGLOBIN 8.4 g/dL (12.0-16.0); MEAN CORPUS HGB CONC 32.7 g/dL (32.0-36.0); MEAN CORPUSCULAR HEMOGLOB 29.8 pg (26.0-34.0); MEAN CORPUSCULAR VOLUME 91.1 fL (80-100); MEAN PLATELET VOLUME 8.6 fL (9.2-13.0); NUCLEATED RED BLOOD CELLS 2.1 /100WBC (0-0); PLATELET COUNT 223 10/3/uL (150-400); RBC DISTRIBUTION WIDTH 17.7 % (12.0-16.0); RED CELL COUNT 2.82 10/6/uL (4.0-5.6)
[2016-12-18 05:08] LABS: MANUAL DIFF YES %; WHITE BLOOD CELLS 37.7 10/3/uL (4.5-10.5)
[2016-12-18 05:16] LABS: CALCIUM, SERUM 8.9 MG/DL (8.5-10.4); CHLORIDE, SERUM 103 MMOL/L (96-112); CO2 (CARBON DIOXIDE) 25 MMOL/L (24-34); CREATININE 0.36 MG/DL (0.55-1.02); GFR AFRICAN AMERICAN 140 ML/MIN (>=60); GFR NON AFRICAN AMERICAN 121 ML/MIN (>=60); PHOSPHORUS, SERUM 2.4 MG/DL (2.5-4.5); POTASSIUM, SERUM 3.3 MMOL/L (3.5-5.3); SODIUM, SERUM 136 MMOL/L (135-148)
[2016-12-18 05:17] LABS: BUN (BLOOD UREA NITROGEN) 9 MG/DL (6-23); GLUCOSE, SERUM 103 MG/DL (60-99)
[2016-12-18 05:22] LABS: BAND NEUTROPHILS 22 %; IMMATURE GRANS ABSOLUTE (CALC) 2.64 10/3/uL (0.0-0.11); LYMPHOCYTES 4 %; LYMPHOCYTES ABSOLUTE (CALC) 1.51 10/3/uL (0.67-4.30); MONOCYTES 2 %; MONOCYTES ABSOLUTE (CALC) 0.75 10/3/uL (0.21-1.20); TOTAL NUCLEATED CELLS 100
[2016-12-18 05:23] LABS: METAMYELOCYTES 8 %; MYELOCYTES 9 %; SEGMENTED NEUTROPHIL (0) 55 %
[2016-12-18 12:48] LABS: A/G RATIO 0.9 (0.7-1.9); ALBUMIN 2.8 G/DL (3.5-5.0); ALKALINE PHOSPHATASE 198 U/L (45-117); GLOBULIN 3.2 G/DL (2.5-4.1); PREALBUMIN 20.4 MG/DL (17.0-43.0); SGOT(AST) 35 U/L (5-40); SGPT(ALT) 29 U/L (5-65); TOTAL BILIRUBIN 0.2 MG/DL (0-1.2)
[2016-12-19 04:01] LABS: BUN (BLOOD UREA NITROGEN) 9 MG/DL (6-23); CALCIUM, SERUM 9.2 MG/DL (8.5-10.4); CHLORIDE, SERUM 103 MMOL/L (96-112); CO2 (CARBON DIOXIDE) 27 MMOL/L (24-34); CREATININE 0.46 MG/DL (0.55-1.02); GFR AFRICAN AMERICAN 129 ML/MIN (>=60); GFR NON AFRICAN AMERICAN 111 ML/MIN (>=60); GLUCOSE, SERUM 112 MG/DL (60-99); PHOSPHORUS, SERUM 2.5 MG/DL (2.5-4.5); POTASSIUM, SERUM 4.4 MMOL/L (3.5-5.3); SODIUM, SERUM 139 MMOL/L (135-148)
[2016-12-19 04:03] LABS: HEMATOCRIT 26.5 % (36.0-48.0); HEMOGLOBIN 8.6 g/dL (12.0-16.0); MEAN CORPUS HGB CONC 32.5 g/dL (32.0-36.0); MEAN CORPUSCULAR HEMOGLOB 29.9 pg (26.0-34.0); MEAN PLATELET VOLUME 8.7 fL (9.2-13.0); NUCLEATED RED BLOOD CELLS 3.7 /100WBC (0-0); PLATELET COUNT 227 10/3/uL (150-400); RBC DISTRIBUTION WIDTH 18.3 % (12.0-16.0); RED CELL COUNT 2.88 10/6/uL (4.0-5.6); WHITE BLOOD CELLS 27.9 10/3/uL (4.5-10.5)
[2016-12-19 04:04] LABS: MANUAL DIFF YES %
[2016-12-19 05:56] LABS: ANISOCYTOSIS 1+ (5-10/OIF) (0-5/OIF); BAND NEUTROPHILS 14 %; IMMATURE GRANS ABSOLUTE (CALC) 4.74 10/3/uL (0.0-0.11); LYMPHOCYTES 5 %; METAMYELOCYTES 10 %; MONOCYTES 3 %; MONOCYTES ABSOLUTE (CALC) 0.84 10/3/uL (0.21-1.20); MYELOCYTES 7 %; NEUTROPHILS ABSOLUTE (CALC) 20.93 10/3/uL (2.02-8.40); PLATELET ESTIMATE ADQ (ADEQUATE); SEGMENTED NEUTROPHIL (0) 61 %; TOTAL NUCLEATED CELLS 100
[2016-12-19 05:57] LABS: POLYCHROMASIA 1+ (2-5/OIF) (0-1/OIF)
[2016-12-19 05:58] LABS: TEARDROP SHAPED RBCS OCC (0-2/OIF)
[2016-12-20 03:51] LABS: HEMATOCRIT 26.8 % (36.0-48.0); HEMOGLOBIN 8.8 g/dL (12.0-16.0); MEAN CORPUS HGB CONC 32.8 g/dL (32.0-36.0); MEAN CORPUSCULAR VOLUME 91.5 fL (80-100); MEAN PLATELET VOLUME 8.3 fL (9.2-13.0); NUCLEATED RED BLOOD CELLS 2.9 /100WBC (0-0); PLATELET COUNT 223 10/3/uL (150-400); RBC DISTRIBUTION WIDTH 18.4 % (12.0-16.0); RED CELL COUNT 2.93 10/6/uL (4.0-5.6)
[2016-12-20 03:56] LABS: BUN (BLOOD UREA NITROGEN) 9 MG/DL (6-23); CALCIUM, SERUM 8.5 MG/DL (8.5-10.4); CHLORIDE, SERUM 101 MMOL/L (96-112); CO2 (CARBON DIOXIDE) 27 MMOL/L (24-34); CREATININE 0.33 MG/DL (0.55-1.02); GFR AFRICAN AMERICAN 144 ML/MIN (>=60); GFR NON AFRICAN AMERICAN 124 ML/MIN (>=60); GLUCOSE, SERUM 131 MG/DL (60-99); PHOSPHORUS, SERUM 1.8 MG/DL (2.5-4.5); POTASSIUM, SERUM 4.1 MMOL/L (3.5-5.3); SODIUM, SERUM 135 MMOL/L (135-148)
[2016-12-20 03:57] LABS: WHITE BLOOD CELLS 25.7 10/3/uL (4.5-10.5)
[2016-12-20 03:58] LABS: MANUAL DIFF YES %
[2016-12-20 04:12] LABS: BAND NEUTROPHILS 10 %; EOSINOPHILS 1 %; EOSINOPHILS ABSOLUTE (CALC) 0.26 10/3/uL (0.0-0.53); IMMATURE GRANS ABSOLUTE (CALC) 2.83 10/3/uL (0.0-0.11); LYMPHOCYTES 8 %; LYMPHOCYTES ABSOLUTE (CALC) 2.06 10/3/uL (0.67-4.30); METAMYELOCYTES 6 %; MONOCYTES 5 %; MONOCYTES ABSOLUTE (CALC) 1.29 10/3/uL (0.21-1.20); MYELOCYTES 5 %; NEUTROPHILS ABSOLUTE (CALC) 19.28 10/3/uL (2.02-8.40); SEGMENTED NEUTROPHIL (0) 65 %; TOTAL NUCLEATED CELLS 100
[2016-12-20 04:13] LABS: PLATELET ESTIMATE ADQ (ADEQUATE)
[2016-12-20 04:14] LABS: RBC MORPHOLOGY ABN (NORMAL)
[2016-12-21 03:57] LABS: CALCIUM, SERUM 8.9 MG/DL (8.5-10.4); CHLORIDE, SERUM 92 MMOL/L (96-112); CO2 (CARBON DIOXIDE) 28 MMOL/L (24-34); CREATININE 0.45 MG/DL (0.55-1.02); GFR AFRICAN AMERICAN 130 ML/MIN (>=60); GFR NON AFRICAN AMERICAN 112 ML/MIN (>=60); PHOSPHORUS, SERUM 2.2 MG/DL (2.5-4.5); POTASSIUM, SERUM 4.4 MMOL/L (3.5-5.3); SODIUM, SERUM 129 MMOL/L (135-148)
[2016-12-21 03:59] LABS: BUN (BLOOD UREA NITROGEN) 15 MG/DL (6-23); GLUCOSE, SERUM 179 MG/DL (60-99)
[2016-12-21 04:06] LABS: HEMATOCRIT 29.8 % (36.0-48.0); HEMOGLOBIN 10.1 g/dL (12.0-16.0); MEAN CORPUS HGB CONC 33.9 g/dL (32.0-36.0); MEAN CORPUSCULAR HEMOGLOB 30.3 pg (26.0-34.0); MEAN CORPUSCULAR VOLUME 89.5 fL (80-100); MEAN PLATELET VOLUME 8.6 fL (9.2-13.0); NUCLEATED RED BLOOD CELLS 2.5 /100WBC (0-0); PLATELET COUNT 262 10/3/uL (150-400); RBC DISTRIBUTION WIDTH 18.9 % (12.0-16.0); RED CELL COUNT 3.33 10/6/uL (4.0-5.6)
[2016-12-21 04:07] LABS: MANUAL DIFF YES %
[2016-12-21 05:03] LABS: ANISOCYTOSIS 1+ (5-10/OIF) (0-5/OIF); BAND NEUTROPHILS 10 %; LYMPHOCYTES 7 %; LYMPHOCYTES ABSOLUTE (CALC) 3.22 10/3/uL (0.67-4.30); METAMYELOCYTES 7 %; MONOCYTES 3 %; MONOCYTES ABSOLUTE (CALC) 1.38 10/3/uL (0.21-1.20); MYELOCYTES 13 %; RBC MORPHOLOGY ABN (NORMAL); SEGMENTED NEUTROPHIL (0) 60 %; TOTAL NUCLEATED CELLS 100
[2016-12-21 05:05] LABS: PLATELET ESTIMATE ADQ (ADEQUATE)
[2016-12-22 04:12] LABS: HEMOGLOBIN 8.8 g/dL (12.0-16.0); MEAN CORPUS HGB CONC 33.3 g/dL (32.0-36.0); MEAN CORPUSCULAR HEMOGLOB 29.9 pg (26.0-34.0); MEAN CORPUSCULAR VOLUME 89.8 fL (80-100); MEAN PLATELET VOLUME 8.7 fL (9.2-13.0); PLATELET COUNT 264 10/3/uL (150-400); RBC DISTRIBUTION WIDTH 19.6 % (12.0-16.0); RED CELL COUNT 2.94 10/6/uL (4.0-5.6)
[2016-12-22 04:13] LABS: HEMATOCRIT 26.4 % (36.0-48.0); MANUAL DIFF YES %; WHITE BLOOD CELLS 36.4 10/3/uL (4.5-10.5)
[2016-12-22 04:26] LABS: CALCIUM, SERUM 8.6 MG/DL (8.5-10.4); CHLORIDE, SERUM 90 MMOL/L (96-112); CO2 (CARBON DIOXIDE) 25 MMOL/L (24-34); CREATININE 0.47 MG/DL (0.55-1.02); GFR AFRICAN AMERICAN 128 ML/MIN (>=60); GFR NON AFRICAN AMERICAN 110 ML/MIN (>=60); GLUCOSE, SERUM 157 MG/DL (60-99); POTASSIUM, SERUM 3.8 MMOL/L (3.5-5.3); SODIUM, SERUM 124 MMOL/L (135-148)
[2016-12-22 04:28] LABS: BUN (BLOOD UREA NITROGEN) 19 MG/DL (6-23)
[2016-12-22 04:42] LABS: BAND NEUTROPHILS 12 %; IMMATURE GRANS ABSOLUTE (CALC) 8.37 10/3/uL (0.0-0.11); LYMPHOCYTES 7 %; LYMPHOCYTES ABSOLUTE (CALC) 2.55 10/3/uL (0.67-4.30); METAMYELOCYTES 11 %; MONOCYTES 4 %; MONOCYTES ABSOLUTE (CALC) 1.46 10/3/uL (0.21-1.20); MYELOCYTES 12 %; NEUTROPHILS ABSOLUTE (CALC) 24.02 10/3/uL (2.02-8.40); TOTAL NUCLEATED CELLS 100
[2016-12-22 04:43] LABS: ANISOCYTOSIS 1+ (5-10/OIF) (0-5/OIF); MACROCYTES 1+ (5-10/OIF) (0-5/OIF); PLATELET ESTIMATE ADQ (ADEQUATE); POLYCHROMASIA 1+ (2-5/OIF) (0-1/OIF); SEGMENTED NEUTROPHIL (0) 54 %
[2016-12-23 03:37] LABS: HEMATOCRIT 27.8 % (36.0-48.0); HEMOGLOBIN 9.2 g/dL (12.0-16.0); MEAN CORPUS HGB CONC 33.1 g/dL (32.0-36.0); MEAN CORPUSCULAR HEMOGLOB 30.1 pg (26.0-34.0); MEAN CORPUSCULAR VOLUME 90.8 fL (80-100); MEAN PLATELET VOLUME 8.6 fL (9.2-13.0); NUCLEATED RED BLOOD CELLS 1.6 /100WBC (0-0); RBC DISTRIBUTION WIDTH 19.9 % (12.0-16.0); RED CELL COUNT 3.06 10/6/uL (4.0-5.6)
[2016-12-23 03:40] LABS: MANUAL DIFF YES %; PLATELET COUNT 346 10/3/uL (150-400); WHITE BLOOD CELLS 37.8 10/3/uL (4.5-10.5)
[2016-12-23 03:50] LABS: CALCIUM, SERUM 8.5 MG/DL (8.5-10.4); CO2 (CARBON DIOXIDE) 23 MMOL/L (24-34); CREATININE 0.54 MG/DL (0.55-1.02); GFR AFRICAN AMERICAN 122 ML/MIN (>=60); GFR NON AFRICAN AMERICAN 105 ML/MIN (>=60); PHOSPHORUS, SERUM 2.2 MG/DL (2.5-4.5); POTASSIUM, SERUM 3.5 MMOL/L (3.5-5.3)
[2016-12-23 03:52] LABS: CHLORIDE, SERUM 102 MMOL/L (96-112); SODIUM, SERUM 136 MMOL/L (135-148)
[2016-12-23 03:53] LABS: BUN (BLOOD UREA NITROGEN) 15 MG/DL (6-23); GLUCOSE, SERUM 258 MG/DL (60-99)
[2016-12-23 04:48] LABS: ANISOCYTOSIS 1+ (5-10/OIF) (0-5/OIF); BAND NEUTROPHILS 11 %; IMMATURE GRANS ABSOLUTE (CALC) 2.65 10/3/uL (0.0-0.11); LYMPHOCYTES 3 %; LYMPHOCYTES ABSOLUTE (CALC) 1.13 10/3/uL (0.67-4.30); METAMYELOCYTES 3 %; MONOCYTES 4 %; MONOCYTES ABSOLUTE (CALC) 1.51 10/3/uL (0.21-1.20); MYELOCYTES 4 %; NEUTROPHILS ABSOLUTE (CALC) 32.51 10/3/uL (2.02-8.40); PLATELET ESTIMATE ADQ (ADEQUATE); SEGMENTED NEUTROPHIL (0) 75 %; TOTAL NUCLEATED CELLS 100
[2016-12-23 04:49] LABS: RBC MORPHOLOGY NORM (NORMAL)
[2016-12-24 04:44] LABS: ALLENS TEST Pos; BE (BASE EXCESS) 2.2 MEQ/L (0 +/- 2.5); CARBOXYHEMOGLOBIN 0.5 % (0-3); INSTRUMENT SERIAL # 8083; METHEMOGLOBIN 0.5 % (0-3); MODE CMV; O2 CONTENT 12.7 VOL% (18-24); OPERATOR ID 35390; PCO2 (CO2 TENSION) 32 MMHG (35-45); PO2 (O2 TENSION) 145 MMHG (79-93); SAMPLE Arterial; TIDAL VOLUME 400 ML; pH 7.51 (7.37-7.43)
[2016-12-24 05:20] LABS: BUN (BLOOD UREA NITROGEN) 17 MG/DL (6-23); CALCIUM, SERUM 8.6 MG/DL (8.5-10.4); CHLORIDE, SERUM 99 MMOL/L (96-112); CO2 (CARBON DIOXIDE) 26 MMOL/L (24-34); CREATININE 0.34 MG/DL (0.55-1.02); GFR AFRICAN AMERICAN 142 ML/MIN (>=60); GFR NON AFRICAN AMERICAN 123 ML/MIN (>=60); PHOSPHORUS, SERUM 2.4 MG/DL (2.5-4.5); SODIUM, SERUM 133 MMOL/L (135-148)
[2016-12-24 05:24] LABS: HEMATOCRIT 25.3 % (36.0-48.0); HEMOGLOBIN 8.3 g/dL (12.0-16.0); MEAN CORPUS HGB CONC 32.8 g/dL (32.0-36.0); MEAN CORPUSCULAR HEMOGLOB 30.6 pg (26.0-34.0); MEAN CORPUSCULAR VOLUME 93.4 fL (80-100); MEAN PLATELET VOLUME 8.8 fL (9.2-13.0); NUCLEATED RED BLOOD CELLS 3.2 /100WBC (0-0); RBC DISTRIBUTION WIDTH 20.3 % (12.0-16.0); RED CELL COUNT 2.71 10/6/uL (4.0-5.6)
[2016-12-24 05:27] LABS: GLUCOSE, SERUM 144 MG/DL (60-99); POTASSIUM, SERUM 4.4 MMOL/L (3.5-5.3)
[2016-12-24 05:28] LABS: MANUAL DIFF YES %; PLATELET COUNT 227 10/3/uL (150-400); WHITE BLOOD CELLS 22.6 10/3/uL (4.5-10.5)
[2016-12-24 07:16] LABS: ANISOCYTOSIS 1+ (5-10/OIF) (0-5/OIF); BAND NEUTROPHILS 19 %; IMMATURE GRANS ABSOLUTE (CALC) 1.58 10/3/uL (0.0-0.11); LYMPHOCYTES 4 %; METAMYELOCYTES 6 %; MONOCYTES 2 %; MONOCYTES ABSOLUTE (CALC) 0.45 10/3/uL (0.21-1.20); MYELOCYTES 1 %; NEUTROPHILS ABSOLUTE (CALC) 19.66 10/3/uL (2.02-8.40); PLATELET ESTIMATE ADQ (ADEQUATE); POLYCHROMASIA 1+ (2-5/OIF) (0-1/OIF); SEGMENTED NEUTROPHIL (0) 68 %; TOTAL NUCLEATED CELLS 100; TOXIC GRANULATION 1+
[2016-12-25 05:33] LABS: BUN (BLOOD UREA NITROGEN) 18 MG/DL (6-23); CALCIUM, SERUM 8.9 MG/DL (8.5-10.4); CHLORIDE, SERUM 96 MMOL/L (96-112); CO2 (CARBON DIOXIDE) 25 MMOL/L (24-34); CREATININE 0.34 MG/DL (0.55-1.02); GFR AFRICAN AMERICAN 142 ML/MIN (>=60); GFR NON AFRICAN AMERICAN 123 ML/MIN (>=60); PHOSPHORUS, SERUM 2.8 MG/DL (2.5-4.5); POTASSIUM, SERUM 4.1 MMOL/L (3.5-5.3); SODIUM, SERUM 133 MMOL/L (135-148)
[2016-12-25 05:39] LABS: GLUCOSE, SERUM 180 MG/DL (60-99)
[2016-12-25 05:59] LABS: HEMATOCRIT 26.4 % (36.0-48.0); HEMOGLOBIN 8.6 g/dL (12.0-16.0); MEAN CORPUS HGB CONC 32.6 g/dL (32.0-36.0); MEAN CORPUSCULAR HEMOGLOB 30.4 pg (26.0-34.0); MEAN CORPUSCULAR VOLUME 93.3 fL (80-100); MEAN PLATELET VOLUME 8.8 fL (9.2-13.0); NUCLEATED RED BLOOD CELLS 5.2 /100WBC (0-0); PLATELET COUNT 241 10/3/uL (150-400); RBC DISTRIBUTION WIDTH 19.8 % (12.0-16.0); RED CELL COUNT 2.83 10/6/uL (4.0-5.6); WHITE BLOOD CELLS 16.3 10/3/uL (4.5-10.5)
[2016-12-25 06:01] LABS: MANUAL DIFF YES %
[2016-12-25 07:00] LABS: ANISOCYTOSIS 1+ (5-10/OIF) (0-5/OIF); BAND NEUTROPHILS 13 %; IMMATURE GRANS ABSOLUTE (CALC) 0.33 10/3/uL (0.0-0.11); LYMPHOCYTES 4 %; LYMPHOCYTES ABSOLUTE (CALC) 0.65 10/3/uL (0.67-4.30); METAMYELOCYTES 2 %; MONOCYTES 2 %; MONOCYTES ABSOLUTE (CALC) 0.33 10/3/uL (0.21-1.20); PLATELET ESTIMATE ADQ (ADEQUATE); POLYCHROMASIA 1+ (2-5/OIF) (0-1/OIF); SEGMENTED NEUTROPHIL (0) 79 %; TOTAL NUCLEATED CELLS 100
[2016-12-26 06:04] LABS: BASOPHILS 0.5 %; BASOPHILS ABSOLUTE 0.11 10/3/uL (0.0-0.16); EOSINOPHILS 0.1 %; EOSINOPHILS ABSOLUTE 0.02 10/3/uL (0.0-0.53); HEMATOCRIT 28.5 % (36.0-48.0); HEMOGLOBIN 9.5 g/dL (12.0-16.0); IMMATURE GRANULOCYTES 6.1 %; LYMPHOCYTES 11.5 %; LYMPHOCYTES ABSOLUTE 2.46 10/3/uL (0.67-4.30); MEAN CORPUS HGB CONC 33.3 g/dL (32.0-36.0); MEAN CORPUSCULAR VOLUME 93.1 fL (80-100); MEAN PLATELET VOLUME 8.6 fL (9.2-13.0); MONOCYTES 5.8 %; MONOCYTES ABSOLUTE 1.24 10/3/uL (0.21-1.20); NEUTROPHILS ABSOLUTE 16.24 10/3/uL (2.02-8.40); PLATELET COUNT 252 10/3/uL (150-400); RED CELL COUNT 3.06 10/6/uL (4.0-5.6); WHITE BLOOD CELLS 21.4 10/3/uL (4.5-10.5)
[2016-12-26 06:12] LABS: MANUAL DIFF NO %
[2016-12-26 06:21] LABS: BUN (BLOOD UREA NITROGEN) 18 MG/DL (6-23); CALCIUM, SERUM 8.9 MG/DL (8.5-10.4); CHLORIDE, SERUM 93 MMOL/L (96-112); CO2 (CARBON DIOXIDE) 27 MMOL/L (24-34); CREATININE 0.29 MG/DL (0.55-1.02); GFR AFRICAN AMERICAN 150 ML/MIN (>=60); GFR NON AFRICAN AMERICAN 129 ML/MIN (>=60); GLUCOSE, SERUM 115 MG/DL (60-99); PHOSPHORUS, SERUM 2.3 MG/DL (2.5-4.5); POTASSIUM, SERUM 4.2 MMOL/L (3.5-5.3); SODIUM, SERUM 130 MMOL/L (135-148)
[2016-12-26 08:41] LABS: BAND NEUTROPHILS 16 %; EOSINOPHILS 1 %; EOSINOPHILS ABSOLUTE (CALC) 0.21 10/3/uL (0.0-0.53); IMMATURE GRANS ABSOLUTE (CALC) 1.07 10/3/uL (0.0-0.11); LYMPHOCYTES 9 %; LYMPHOCYTES ABSOLUTE (CALC) 1.93 10/3/uL (0.67-4.30); METAMYELOCYTES 5 %; MONOCYTES 8 %; MONOCYTES ABSOLUTE (CALC) 1.71 10/3/uL (0.21-1.20); NEUTROPHILS ABSOLUTE (CALC) 16.48 10/3/uL (2.02-8.40); PLATELET ESTIMATE ADQ (ADEQUATE); SEGMENTED NEUTROPHIL (0) 61 %; TOTAL NUCLEATED CELLS 100
[2016-12-26 08:42] LABS: ELLIPTOCYTES 1+ (3-10/OIF) (0-2/OIF); POLYCHROMASIA 1+ (2-5/OIF) (0-1/OIF); STOMATOCYTES 1+ (3-10/OIF) (0-2/OIF); TEARDROP SHAPED RBCS FEW (3-10/OIF)
[2016-12-26 08:43] LABS: SCHISTOCYTES OCC (0-2/OIF)
[2016-12-27 04:12] LABS: HEMATOCRIT 27.8 % (36.0-48.0); HEMOGLOBIN 9.2 g/dL (12.0-16.0); MEAN CORPUS HGB CONC 33.1 g/dL (32.0-36.0); MEAN CORPUSCULAR VOLUME 93.6 fL (80-100); MEAN PLATELET VOLUME 8.5 fL (9.2-13.0); PLATELET COUNT 256 10/3/uL (150-400); RBC DISTRIBUTION WIDTH 20.7 % (12.0-16.0); RED CELL COUNT 2.97 10/6/uL (4.0-5.6); WHITE BLOOD CELLS 19.7 10/3/uL (4.5-10.5)
[2016-12-27 04:15] LABS: MANUAL DIFF YES %
[2016-12-27 04:28] LABS: BUN (BLOOD UREA NITROGEN) 20 MG/DL (6-23); CALCIUM, SERUM 8.4 MG/DL (8.5-10.4); CHLORIDE, SERUM 95 MMOL/L (96-112); CREATININE 0.36 MG/DL (0.55-1.02); GFR AFRICAN AMERICAN 140 ML/MIN (>=60); GFR NON AFRICAN AMERICAN 121 ML/MIN (>=60); GLUCOSE, SERUM 119 MG/DL (60-99); POTASSIUM, SERUM 4.3 MMOL/L (3.5-5.3); SODIUM, SERUM 134 MMOL/L (135-148)
[2016-12-27 04:29] LABS: CO2 (CARBON DIOXIDE) 32 MMOL/L (24-34); PHOSPHORUS, SERUM 3.1 MG/DL (2.5-4.5)
[2016-12-27 04:38] LABS: BAND NEUTROPHILS 4 %; IMMATURE GRANS ABSOLUTE (CALC) 0.79 10/3/uL (0.0-0.11); LYMPHOCYTES 11 %; LYMPHOCYTES ABSOLUTE (CALC) 2.17 10/3/uL (0.67-4.30); METAMYELOCYTES 1 %; MONOCYTES 3 %; MONOCYTES ABSOLUTE (CALC) 0.59 10/3/uL (0.21-1.20); MYELOCYTES 3 %; NEUTROPHILS ABSOLUTE (CALC) 16.15 10/3/uL (2.02-8.40); PLATELET ESTIMATE ADQ (ADEQUATE); RBC MORPHOLOGY ABN (NORMAL); SEGMENTED NEUTROPHIL (0) 78 %; TOTAL NUCLEATED CELLS 100
[2016-12-28 06:12] LABS: HEMOGLOBIN 9.3 g/dL (12.0-16.0); MANUAL DIFF YES %; MEAN CORPUS HGB CONC 33.2 g/dL (32.0-36.0); MEAN CORPUSCULAR HEMOGLOB 31.5 pg (26.0-34.0); MEAN CORPUSCULAR VOLUME 94.9 fL (80-100); MEAN PLATELET VOLUME 8.4 fL (9.2-13.0); PLATELET COUNT 252 10/3/uL (150-400); RBC DISTRIBUTION WIDTH 20.7 % (12.0-16.0); RED CELL COUNT 2.95 10/6/uL (4.0-5.6)
[2016-12-28 06:28] LABS: BUN (BLOOD UREA NITROGEN) 22 MG/DL (6-23); CALCIUM, SERUM 8.9 MG/DL (8.5-10.4); CHLORIDE, SERUM 96 MMOL/L (96-112); CREATININE 0.28 MG/DL (0.55-1.02); GFR AFRICAN AMERICAN 152 ML/MIN (>=60); GFR NON AFRICAN AMERICAN 131 ML/MIN (>=60); GLUCOSE, SERUM 118 MG/DL (60-99); PHOSPHORUS, SERUM 3.1 MG/DL (2.5-4.5); POTASSIUM, SERUM 4.8 MMOL/L (3.5-5.3); SODIUM, SERUM 131 MMOL/L (135-148)
[2016-12-28 06:32] LABS: CO2 (CARBON DIOXIDE) 27 MMOL/L (24-34)
[2016-12-28 07:37] LABS: ANISOCYTOSIS 1+ (5-10/OIF) (0-5/OIF); BAND NEUTROPHILS 2 %; EOSINOPHILS 1 %; EOSINOPHILS ABSOLUTE (CALC) 0.15 10/3/uL (0.0-0.53); LYMPHOCYTES 9 %; LYMPHOCYTES ABSOLUTE (CALC) 1.35 10/3/uL (0.67-4.30); MACROCYTES 1+ (5-10/OIF) (0-5/OIF); METAMYELOCYTES 2 %; MONOCYTES 4 %; MYELOCYTES 2 %; PLATELET ESTIMATE ADQ (ADEQUATE); SEGMENTED NEUTROPHIL (0) 80 %; TOTAL NUCLEATED CELLS 100
[2016-12-29 04:32] LABS: HEMOGLOBIN 9.5 g/dL (12.0-16.0); MEAN CORPUS HGB CONC 32.8 g/dL (32.0-36.0); MEAN CORPUSCULAR HEMOGLOB 30.9 pg (26.0-34.0); MEAN CORPUSCULAR VOLUME 94.5 fL (80-100); MEAN PLATELET VOLUME 8.3 fL (9.2-13.0); PLATELET COUNT 282 10/3/uL (150-400); RBC DISTRIBUTION WIDTH 20.5 % (12.0-16.0); RED CELL COUNT 3.07 10/6/uL (4.0-5.6); WHITE BLOOD CELLS 16.8 10/3/uL (4.5-10.5)
[2016-12-29 04:40] LABS: MANUAL DIFF YES %
[2016-12-29 04:52] LABS: A/G RATIO 0.9 (0.7-1.9); CALCIUM, SERUM 9.2 MG/DL (8.5-10.4); CHLORIDE, SERUM 95 MMOL/L (96-112); CO2 (CARBON DIOXIDE) 29 MMOL/L (24-34); CREATININE 0.36 MG/DL (0.55-1.02); GFR AFRICAN AMERICAN 140 ML/MIN (>=60); GFR NON AFRICAN AMERICAN 121 ML/MIN (>=60); GLOBULIN 3.3 G/DL (2.5-4.1); GLUCOSE, SERUM 107 MG/DL (60-99); POTASSIUM, SERUM 4.9 MMOL/L (3.5-5.3); SGOT(AST) 20 U/L (5-40); SGPT(ALT) 25 U/L (5-65); SODIUM, SERUM 129 MMOL/L (135-148); TOTAL BILIRUBIN 0.4 MG/DL (0-1.2); TOTAL PROTEIN 6.3 G/DL (6.0-8.5)
[2016-12-29 05:08] LABS: ALKALINE PHOSPHATASE 83 U/L (45-117); BUN (BLOOD UREA NITROGEN) 26 MG/DL (6-23)
[2016-12-29 06:45] LABS: ANISOCYTOSIS 1+ (5-10/OIF) (0-5/OIF); BAND NEUTROPHILS 3 %; IMMATURE GRANS ABSOLUTE (CALC) 1.18 10/3/uL (0.0-0.11); LYMPHOCYTES 14 %; LYMPHOCYTES ABSOLUTE (CALC) 2.35 10/3/uL (0.67-4.30); METAMYELOCYTES 4 %; MONOCYTES 7 %; MONOCYTES ABSOLUTE (CALC) 1.18 10/3/uL (0.21-1.20); MYELOCYTES 3 %; PLATELET ESTIMATE ADQ (ADEQUATE); POLYCHROMASIA 1+ (2-5/OIF) (0-1/OIF); SEGMENTED NEUTROPHIL (0) 69 %; TOTAL NUCLEATED CELLS 100
[2016-12-29 06:46] LABS: HELMET CELLS OCC (0-2/OIF); MACROCYTES 1+ (5-10/OIF) (0-5/OIF); MICROCYTES 1+ (5-10/OIF) (0-5/OIF); TEARDROP SHAPED RBCS FEW (3-10/OIF)
== END 2016-12-31 14:20 | disposition hospice, inpatient (51) | DRG 4 ==
LOC: ER 18:38 → 2SO 20:33 → SDC/OF 11-20 17:58 → 5NO 11-20 18:25 → CCU 11-28 02:52 → 4SO 12-01 10:12 → 7NO 12-01 16:58 → MIC 12-02 21:29
PROVIDERS: Emergency Medicine; Hospitalist; Internal Medicine; Internal Medicine Critical Care Medicine; Internal Medicine Gastroenterology; Internal Medicine Infectious Disease; Internal Medicine Nephrology; Internal Medicine Pulmonary Disease; Nurse Practitioner; Nurse Practitioner Family; Otolaryngology; Psychiatry & Neurology Neurology
PROC: 009U3ZX Drainage of Spinal Canal, Percutaneous Approach, Diagnostic (ICD-10-PCS; 2016-11-14)
PROC: 5A1945Z Respiratory Ventilation, 24-96 Consecutive Hours (ICD-10-PCS; 2016-11-14)
PROC: 0BH17EZ Insertion of Endotracheal Airway into Trachea, Via Natural or Artificial Opening (ICD-10-PCS; 2016-11-14)
PROC: 0DH67UZ Insertion of Feeding Device into Stomach, Via Natural or Artificial Opening (ICD-10-PCS; 2016-11-16)
PROC: 3E0G76Z Introduction of Nutritional Substance into Upper GI, Via Natural or Artificial Opening (ICD-10-PCS; 2016-11-16)
PROC: 0DHA3UZ Insertion of Feeding Device into Jejunum, Percutaneous Approach (ICD-10-PCS; 2016-11-18)
PROC: 0W9930Z Drainage of Right Pleural Cavity with Drainage Device, Percutaneous Approach (ICD-10-PCS; 2016-11-20)
PROC: 05HM33Z Insertion of Infusion Device into Right Internal Jugular Vein, Percutaneous Approach (ICD-10-PCS; 2016-11-20)
PROC: B543ZZA Ultrasonography of Right Jugular Veins, Guidance (ICD-10-PCS; 2016-11-20)
PROC: 6A551Z3 Pheresis of Plasma, Multiple (ICD-10-PCS; 2016-11-20)
PROC: 0W9B30Z Drainage of Left Pleural Cavity with Drainage Device, Percutaneous Approach (ICD-10-PCS; 2016-11-25)
PROC: 0W9930Z Drainage of Right Pleural Cavity with Drainage Device, Percutaneous Approach (ICD-10-PCS; 2016-11-25)
PROC: 0BH17EZ Insertion of Endotracheal Airway into Trachea, Via Natural or Artificial Opening (ICD-10-PCS; 2016-11-28)
PROC: 5A1945Z Respiratory Ventilation, 24-96 Consecutive Hours (ICD-10-PCS; 2016-11-28)
PROC: 30233N1 Transfusion of Nonautologous Red Blood Cells into Peripheral Vein, Percutaneous Approach (ICD-10-PCS; 2016-12-01)
PROC: 5A1955Z Respiratory Ventilation, Greater than 96 Consecutive Hours (ICD-10-PCS; 2016-12-02)
PROC: 0BH17EZ Insertion of Endotracheal Airway into Trachea, Via Natural or Artificial Opening (ICD-10-PCS; 2016-12-02)
PROC: 3C1ZX8Z Irrigation of Indwelling Device using Irrigating Substance, External Approach (ICD-10-PCS; 2016-12-16)
PROC: 0B110F4 Bypass Trachea to Cutaneous with Tracheostomy Device, Open Approach (ICD-10-PCS; principal; 2016-12-17 13:00)
DX: A81.2 Progressive multifocal leukoencephalopathy (principal); G93.6 Cerebral edema; E43 Unspecified severe protein-calorie malnutrition; G93.49 Other encephalopathy; J15.211 Pneumonia due to Methicillin susceptible Staphylococcus aureus; A04.7 Enterocolitis due to Clostridium difficile; D69.6 Thrombocytopenia, unspecified; J96.01 Acute respiratory failure with hypoxia; J96.02 Acute respiratory failure with hypercapnia; N39.0 Urinary tract infection, site not specified; J93.83 Other pneumothorax; Z51.5 Encounter for palliative care; G35 Multiple sclerosis; K31.84 Gastroparesis; Z66 Do not resuscitate; F41.9 Anxiety disorder, unspecified; F32.9 Major depressive disorder, single episode, unspecified; I10 Essential (primary) hypertension; I95.1 Orthostatic hypotension; G40.909 Epilepsy, unspecified, not intractable, without status epilepticus; K27.9 Peptic ulcer, site unspecified, unspecified as acute or chronic, without hemorrhage or perforation; R13.10 Dysphagia, unspecified; E03.9 Hypothyroidism, unspecified; E78.5 Hyperlipidemia, unspecified; Z79.52 Long term (current) use of systemic steroids; G89.29 Other chronic pain; F17.210 Nicotine dependence, cigarettes, uncomplicated; Z86.73 Personal history of transient ischemic attack (TIA), and cerebral infarction without residual deficits; Z88.8 Allergy status to other drugs, medicaments and biological substances
CPT/HCPCS: 31500; 31720; 32557; 36005; 36415; 36430; 36514; 36556; 36569; 36600; 49441; 49451; 49460; 49465; 62270; 70450; 70544; 70548; 70553; 71010; 74000; 77001; 77003; 80048; 80053; 80069; 80076; 81001; 82040; 82042; 82140; 82330; 82784; 82784-59; 82805; 82945; 82947; 82962; 83605; 83735; 83873; 83880; 83916; 84100; 84132; 84134; 84145; 84157; 84439; 84443; 84481; 84484; 84550; 84999; 85025; 85610; 85652; 85730; 86039; 86140; 86235; 86235-59; 86403; 86403-59; 86431; 86592; 86644; 86645; 86850; 86900; 86901; 86920; 87015; 87040; 87070; 87077; 87086; 87102; 87116; 87186; 87205; 87210; 87327; 87385; 87389; 87449; 87493; 87493-59; 87529; 87529-59; 87556; 87641; 87798; 88112; 89051; 89055; 93005; 94002; 94003; 94640; 94660; 94770; 95816; 95819; 97110-GP; 97112-GO; 97161-GP; 97164-GP; 97166-GO; 97168-GO; 97530-GP; 97535-GO; 99285; A9270-GY; A9577; C1725; C1751; C1757; C1769; C1894; C8929; C9113; G0257; G8978-CN-GP; G8979-CN-GP; G8980-CN-GP; J0360; J0610; J0690; J1170; J1447; J1940; J1953; J2250; J2370; J2405; J2930; J3010; J3370; J3475; J3480; P9016; P9045; P9047; Q9957; Q9967

== ENCOUNTER 2016-12-31 14:27 | Inpatient (IN) | payer OTHER ==
--- NOTE | ~2016-12-31 | DS ---
Discharge Summary [facility] [address] [place]. [address] NAME: ISAI CLAYTON : 60 STATUS : DIS IN PAT#: [id number] AGE: 56 ADM/REG DATE : 12/31/16 MR#: [id number] REPORT SERV DATE: 01/30/17 DICTATED BY: NICK COLEMAN DATE: 01/30/17 REPORT STATUS : Draft TRANSCRIBED BY: MODL DATE: 01/30/17 ADMISSION DATE: 12/31/2016 DISCHARGE DATE: 01/11/2017 SUMMARY Date of original admission was 11/11/2016. Date of transfer to [facility] was 12/31/2016. Date of is 01/11/2017. This is a 56-year-old with a multiyear history of multiple sclerosis, who developed PML with encephalopathy and respiratory failure and respiratory distress. She had been in the ICU for quite some time before coming to [facility]. She had to be ventilated. She had PML which is progressive multifocal leukoencephalopathy with brain lesions. She had seizures. She had a pneumothorax and chest tubes, was ventilated, PEG tube was placed, and the family wishes just comfort care at the time she came to hospice. PAST MEDICAL HISTORY: Pertinent for migraines, stroke, UTI, esophageal stricture, seizures, hypertension, hypothyroidism, depression, and anxiety. The patient was dyspneic and otherwise unresponsive, breathing hard using accessory muscles. She was admitted to hospice. We began her on some morphine. She already had a fentanyl patch. Family was very resistant to going anywhere else and she continued to decline. She was already emaciated and amazingly she hung on till January 11 when she at 20:52. FINAL DIAGNOSIS: Multiple sclerosis with PML and cachexia. DICTATED BY: Nick Coleman MD GP/CARMINE Nick Coleman MD / [id number] CC: MD Mamadou Crocker M.D.
[~2016-12-31 14:27] MED LIST changes: +8 HOUR650 MG PO; +ACETSUP650 PR; +BISR PR; +ENEMEEZ PR; +ENULOSE PO; +FLEETS ENEMA PR; +GGDM5ML PO; +GLYCERIN SUPPOSITORY PR; +HYDROCORT AC30 MG PR; +KAOPECTATE262 MG/15 PO; +MAGNESIUM CITRATE PO; +METPAKSF PO; +MSIMMR15 PO; +ZOFRAN4 PO; +[UNRECOGNIZED DRUG - OTHER] PO
== END 2017-01-11 23:15 | disposition expired | DRG 60 ==
LOC: MIC 14:27 → 4EA 14:38
DX: G35 Multiple sclerosis (principal); I10 Essential (primary) hypertension; Z66 Do not resuscitate; Z51.5 Encounter for palliative care; Z86.73 Personal history of transient ischemic attack (TIA), and cerebral infarction without residual deficits; F17.210 Nicotine dependence, cigarettes, uncomplicated; E03.9 Hypothyroidism, unspecified
CPT/HCPCS: A9270-GY; J2270